=== PATIENT | female | born 1955 | race Caucasian/White ===

== ENCOUNTER 2016-09-09 08:04 | Emergency (ER) | payer SELFPAY ==
[2016-09-09 08:10] VITALS: BP 120/73
[2016-09-09] MEDS ORDERED: IPRATROPIUM/ALBUTEROL 0.5-2.5 MG/3 ML AMPUL NEB ONE (08:14)
[2016-09-09] MEDS ORDERED: GUAIFENESIN/D-METHORPHAN (200-20 MG) SYRUP 10 ML PO ONE (08:14)
--- NOTE | 2016-09-09 08:15 | ER Document Report ---
ED Respiratory Problem - General Chief Complaint: Congestion Stated Complaint: CONGESTION,COUGH Time Seen by Provider: 09/09/16 08:14 Mode of Arrival: Ambulatory Information source: Patient Notes: Pt is a 61 year old female with asthma who presents to the ER today for shortness of breath, cough, wheezing, fever and chills x 4 days. She states it began as sinus congestion and runny nose and has been worsening. She has not taken her temperature at home. She has not been able to find her albuterol inhaler at home. TRAVEL OUTSIDE OF THE U.S. IN LAST 30 DAYS: Yes COUNTRY TRAVELED TO/FROM: [place] and - Related Data Allergies/Adverse Reactions: codeine [Codeine] Allergy (Verified 09/09/16 08:08) egg [Egg] Allergy (Verified 09/09/16 08:08) milk [Milk] Allergy (Verified 09/09/16 08:08) Sulfa (Sulfonamide Antibiotics) Allergy (Verified 09/09/16 08:08) Past Medical History - General Information source: Patient - Social History Smoking Status: Former Smoker Family History: Reviewed & Not Pertinent Patient has suicidal ideation: No Patient has homicidal ideation: No - Past Medical History Cardiac Medical History: Reports: Hx Heart Attack - 2011, Hx Hypercholesterolemia, Hx Hypertension - taking Lisinopril but out for 6 weeks, seen at [facility] Medical History: Reports: Hx Asthma Endocrine Medical History: Reports: Hx Diabetes Mellitus Type 2 Renal/ Medical History: Denies: Hx Peritoneal Dialysis Past Surgical History: Reports: Hx Cholecystectomy - Immunizations Hx Diphtheria, Pertussis, Tetanus Vaccination: Yes Review of Systems - Review of Systems Constitutional: See HPI EENT: See HPI Cardiovascular: No symptoms reported Respiratory: See HPI Gastrointestinal: No symptoms reported Genitourinary: No symptoms reported Female Genitourinary: No symptoms reported Musculoskeletal: No symptoms reported Skin: No symptoms reported Hematologic/Lymphatic: No symptoms reported Neurological/Psychological: No symptoms reported Physical Exam - Vital signs Vitals: Temp Pulse Resp BP Pulse Ox 98 F 100 18 120/73 92 09/09/16 08:08 09/09/16 08:08 09/09/16 08:08 09/09/16 08:08 09/09/16 08:08 - Notes Notes: PHYSICAL EXAMINATION: GENERAL: Coughing, raspy voice, but in no acute distress. HEAD: Atraumatic, normocephalic. EYES: Pupils equal round and reactive to light, extraocular movements intact, sclera anicteric, conjunctiva are normal. ENT: ear canals without erythema or foreign body, TMs pearly schrader with good bony landmarks, nares with mucoid discharge t, oropharynx clear without exudates. Moist mucous membranes. NECK: Normal range of motion, supple without lymphadenopathy LUNGS: Coughing, mild expiratory wheezes and lower lung [place], no rales or rhonchi. HEART: Regular rate and rhythm without murmurs ABDOMEN: Soft, no tenderness. No guarding, no rebound BACK: no vertebral tenderness, normal ROM GI/: no CVA tenderness EXTREMITIES: Normal range of motion, no pitting edema. No cyanosis. NEUROLOGICAL: Cranial nerves grossly intact. Normal sensory/motor exams. PSYCH: Normal mood, normal affect. SKIN: Warm, Dry, normal turgor, no rashes or lesions noted Course - Re-evaluation Re-evalutation: 09/09/16 09:44 patient feels better after breathing treatment and cough medication. Patient pulse ox did improve above 93% on room air. She was sent home with an albuterol inhaler from the emergency department. Chest x-ray was normal today, patient afebrile with normal vital signs. 09/09/16 09:45 - Vital Signs Vital signs: Temp Pulse Resp BP Pulse Ox 98 F 100 12 120/73 92 09/09/16 08:08 09/09/16 08:08 09/09/16 08:20 09/09/16 08:08 09/09/16 08:08 Discharge - Discharge Clinical Impression: Bronchitis Sinusitis Qualifiers: Sinusitis location: unspecified location Chronicity: acute Recurrence: non- recurrent Qualified Code(s): J01.90 - Acute sinusitis, unspecified Condition: Stable Disposition: HOME, SELF-CARE Additional Instructions: Return immediately for any new or worsening symptoms. Follow up with primary care provider, call tomorrow to make followup appointment. Prescriptions: Albuterol Sulfate [Proair HFA Inhalation Aerosol 8.5 gm MDI] 2 puff IH Q4 PRN # 1 mdi PRN Reason: Albuterol Sulfate [Albuterol Sulfate 2.5mg/3 mL] 1 vial IH Q4 PRN #25 vial PRN Reason: Azithromycin [Zithromax 250 mg Tablet] 250 mg PO ASDIR PRN #6 tablet PRN Reason: D-Methorphan Hb/Prometh HCl [Promethazine-Dm Syrup] 5 ml PO Q8 PRN #120 ml PRN Reason: Forms: Return to Work
--- NOTE | 2016-09-09 08:43 | RADIOLOGY REPORT (SQ) ---
EXAM DESCRIPTION: CHEST PA/LAT COMPLETED DATE/TIME: 09/09/2016 8:34 am REASON FOR STUDY: chest congestion, cough, hypoxia COMPARISON: Two-view chest 01/10/2016 EXAM PARAMETERS: NUMBER OF VIEWS: two views TECHNIQUE: Digital Frontal and Lateral radiographic views of the chest acquired. RADIATION DOSE: NA LIMITATIONS: none FINDINGS: LUNGS AND PLEURA: No opacities, masses or pneumothorax. No pleural effusion. MEDIASTINUM AND HILAR STRUCTURES: No masses or contour abnormalities. HEART AND VASCULAR STRUCTURES: Heart normal size. No evidence for failure. BONES: No acute findings. HARDWARE: None in the chest. OTHER: No other significant finding. IMPRESSION: NO SIGNIFICANT RADIOGRAPHIC FINDING IN THE CHEST. TECHNICAL DOCUMENTATION: JOB ID: [id number] [employer]- All Rights Reserved
[2016-09-09] MEDS ORDERED: ALBUTEROL SULFATE HFA (90 MCG/PUFF) 8 GM MDI (1 MDI/ER DISP) IH PRN (09:20)
== END 2016-09-09 09:29 | disposition home or self-care (01) ==
LOC: ER 08:04
DX: J40 Bronchitis, not specified as acute or chronic (principal); J01.90 Acute sinusitis, unspecified; E78.00 Pure hypercholesterolemia, unspecified; I10 Essential (primary) hypertension; J45.909 Unspecified asthma, uncomplicated; E11.9 Type 2 diabetes mellitus without complications; Z90.49 Acquired absence of other specified parts of digestive tract; Z87.891 Personal history of nicotine dependence; Z88.6 Allergy status to analgesic agent; Z88.2 Allergy status to sulfonamides; Z91.012 Allergy to eggs; Z91.011 Allergy to milk products; I25.2 Old myocardial infarction
CPT/HCPCS: 94640; 99283; 71020; J3490; J7620

== ENCOUNTER 2017-03-10 10:20 | Emergency (ER) | payer SELFPAY ==
--- NOTE | 2017-03-10 11:00 | ER Document Report ---
ED Respiratory Problem - General Chief Complaint: Cough Stated Complaint: COUGH Time Seen by Provider: 03/10/17 10:54 Mode of Arrival: Ambulatory Information source: Patient Notes: Patient is a 61-year-old female who presents to the ER today for 5 days of cough , runny nose, sore throat. Patient states her cough is productive of thick yellow sputum. She states she is losing her voice. She admits to hot flashes and chills but does not know if she has had a fever or not. She denies history of asthma, shortness of breath or wheezing. TRAVEL OUTSIDE OF THE [place] IN LAST 30 DAYS: No COUNTRY TRAVELED TO/FROM: [place] and - Related Data Allergies/Adverse Reactions: codeine [Codeine] Allergy (Verified 03/10/17 10:24) egg [Egg] Allergy (Verified 03/10/17 10:24) milk [Milk] Allergy (Verified 03/10/17 10:24) Sulfa (Sulfonamide Antibiotics) Allergy (Verified 03/10/17 10:24) Past Medical History - General Information source: Patient - Social History Smoking Status: Never Smoker Chew tobacco use (# tins/day): No Frequency of alcohol use: None Drug Abuse: None Family History: Arthritis, CAD, Hyperlipidemia, Hypertension, Malignancy, Thyroid Disfunction Patient has suicidal ideation: No Patient has homicidal ideation: No - Past Medical History Cardiac Medical History: Reports: Hx Heart Attack - 2011, Hx Hypercholesterolemia, Hx Hypertension - taking Lisinopril but out for 6 weeks, seen at [facility] Medical History: Reports: Hx Asthma, Hx Bronchitis, Hx Pneumonia Endocrine Medical History: Reports: Hx Diabetes Mellitus Type 2 Renal/ Medical History: Denies: Hx Peritoneal Dialysis GI Medical History: Reports: Hx Irritable Bowel Musculoskeltal Medical History: Reports Hx Arthritis, Reports Hx Musculoskeletal Trauma Psychiatric Medical History: Reports: Hx Anxiety, Hx Depression Traumatic Medical History: Reports: Hx Fractures - Finger wrist of the left Past Surgical History: Reports: Hx Cholecystectomy, Hx Oral Surgery - [place] teeth - Immunizations Hx Diphtheria, Pertussis, Tetanus Vaccination: Yes Review of Systems - Review of Systems Constitutional: See HPI EENT: See HPI Cardiovascular: No symptoms reported Respiratory: See HPI Gastrointestinal: No symptoms reported Genitourinary: No symptoms reported Female Genitourinary: No symptoms reported Musculoskeletal: No symptoms reported Skin: No symptoms reported Hematologic/Lymphatic: No symptoms reported Neurological/Psychological: No symptoms reported Physical Exam - Vital signs Vitals: Temp Pulse Resp BP Pulse Ox 98.1 F 113 H 19 126/83 H 96 03/10/17 10:28 03/10/17 10:28 03/10/17 10:28 03/10/17 10:28 03/10/17 10:28 - Notes Notes: PHYSICAL EXAMINATION: GENERAL: Mildly ill-appearing, but in no acute distress. HEAD: Atraumatic, normocephalic. EYES: Pupils equal round and reactive to light, extraocular movements intact, sclera anicteric, conjunctiva are normal. ENT: ear canals without erythema or foreign body, TMs pearly schrader with good bony landmarks, nares with mucoid discharge, oropharynx clear without exudates. Moist mucous membranes. maxillary sinuses tender to palpation NECK: Normal range of motion, supple without lymphadenopathy LUNGS: cough, otherwiseCTAB and equal. No wheezes rales or rhonchi. HEART: Regular rate and rhythm without murmurs ABDOMEN: Soft, no tenderness. No guarding, no rebound BACK: no vertebral tenderness, normal ROM GI/: no CVA tenderness EXTREMITIES: Normal range of motion, no pitting edema. No cyanosis. NEUROLOGICAL: Cranial nerves grossly intact. Normal sensory/motor exams. PSYCH: Normal mood, normal affect. SKIN: Warm, Dry, normal turgor, no rashes or lesions noted Course - Re-evaluation Re-evalutation: 03/10/17 18:34 X-ray negative for any acute pathology. - Vital Signs Vital signs: Temp Pulse Resp BP Pulse Ox 98.3 F 100 20 138/77 H 97 03/10/17 12:59 03/10/17 12:59 03/10/17 12:59 03/10/17 12:59 03/10/17 12:59 Discharge - Discharge Clinical Impression: Bronchitis Sinusitis Qualifiers: Sinusitis location: other Chronicity: acute Recurrence: non-recurrent Qualified Code(s): J01.80 - Other acute sinusitis Condition: Stable Disposition: HOME, SELF-CARE Additional Instructions: Return immediately for any new or worsening symptoms. Follow up with primary care provider, call tomorrow to make followup appointment. Prescriptions: Hydrocodone Bit/Homatropine [Hycodan Syrup 5-1.5 mg/5 ml Ud Cup] 5 ml PO Q4HP PRN #120 ml PRN Reason: Azithromycin [Zithromax 250 mg Tablet] 250 mg PO ASDIR PRN #6 tablet PRN Reason:
--- NOTE | 2017-03-10 11:44 | RADIOLOGY REPORT (SQ) ---
EXAM DESCRIPTION: CHEST PA/LAT COMPLETED DATE/TIME: 03/10/2017 11:36 am REASON FOR STUDY: cough, sob COMPARISON: 09/09/2016 EXAM PARAMETERS: NUMBER OF VIEWS: two views TECHNIQUE: Digital Frontal and Lateral radiographic views of the chest acquired. RADIATION DOSE: NA LIMITATIONS: none FINDINGS: LUNGS AND PLEURA: No opacities, masses or pneumothorax. No pleural effusion. MEDIASTINUM AND HILAR STRUCTURES: No masses or contour abnormalities. HEART AND VASCULAR STRUCTURES: Heart normal size. No evidence for failure. BONES: No acute findings. HARDWARE: None in the chest. OTHER: No other significant finding. IMPRESSION: NO SIGNIFICANT RADIOGRAPHIC FINDING IN THE CHEST. TECHNICAL DOCUMENTATION: JOB ID: [id number] [employer]- All Rights Reserved
[2017-03-10 13:04] VITALS: BP 138/77
== END 2017-03-10 13:03 | disposition home or self-care (01) ==
LOC: ER 10:20
DX: J40 Bronchitis, not specified as acute or chronic (principal); J01.80 Other acute sinusitis; R05 Cough; J02.9 Acute pharyngitis, unspecified; R09.89 Other specified symptoms and signs involving the circulatory and respiratory systems; I25.2 Old myocardial infarction
CPT/HCPCS: 71020; 99283

== ENCOUNTER 2017-12-31 12:12 | Observation (INO) | payer SELFPAY ==
--- NOTE | 2017-12-31 12:38 | EKG REPORT ---
SEVERITY:- ABNORMAL ECG - SINUS RHYTHM ATRIAL PREMATURE COMPLEX NONSPECIFIC INTRAVENTRICULAR CONDUCTION DELAY : Confirmed by: Erin Zamora MD 31-Dec-2017 12:37:50
--- NOTE | 2017-12-31 12:55 | ER Document Report ---
ED Medical Screen (RME) - General Chief Complaint: Chest Pain Stated Complaint: CHEST PAIN Time Seen by Provider: 12/31/17 12:23 Notes: 8-year-old female to the emergency department chief complaint of chest pain on and off for the last 2 days. Having pressure and heaviness in the chest with some pain that shoots down her left arm. Nausea and vomiting this morning. Went to work but the boss said that she looked horrible she needed to go get checked out. States that she hates coming to the doctor. Does not have good health insurance so has not been taking her medications. Patient has diabetes and hypertension. Does not smoke, drink or do drugs. Has had a cardiac catheterization done approximately 6 years ago which was reportedly normal. I have greeted and performed a rapid initial assessment of this patient. A comprehensive ED assessment and evaluation of the patient, analysis of test results and completion of the medical decision making process will be conducted by additional ED providers. TRAVEL OUTSIDE OF THE [place].S. IN LAST 30 DAYS: No COUNTRY TRAVELED TO/FROM: [facility] and - Related Data Allergies/Adverse Reactions: codeine [Codeine] Allergy (Verified 12/31/17 12:15) egg [Egg] Allergy (Verified 12/31/17 12:15) milk [Milk] Allergy (Verified 12/31/17 12:15) Sulfa (Sulfonamide Antibiotics) Allergy (Verified 12/31/17 12:15) Past Medical History - Past Medical History Cardiac Medical History: Reports: Hx Heart Attack - 2011, Hx Hypercholesterolemia, Hx Hypertension - taking Lisinopril but out for 6 weeks, seen at [facility] Medical History: Reports: Hx Asthma, Hx Bronchitis, Hx Pneumonia Endocrine Medical History: Reports: Hx Diabetes Mellitus Type 2 Renal/ Medical History: Denies: Hx Peritoneal Dialysis GI Medical History: Reports: Hx Irritable Bowel Musculoskeltal Medical History: Reports Hx Arthritis, Reports Hx Musculoskeletal Trauma Psychiatric Medical History: Reports: Hx Anxiety, Hx Depression Traumatic Medical History: Reports: Hx Fractures - Finger wrist of the left Past Surgical History: Reports: Hx Cholecystectomy, Hx Oral Surgery - [place] teeth - Immunizations Hx Diphtheria, Pertussis, Tetanus Vaccination: Yes Review of Systems - Review of Systems Notes: Review of systems positive for the following: Chest pain, nausea, vomiting Physical Exam - Vital signs Vitals: Temp Pulse Resp BP Pulse Ox 97.4 F 86 16 184/94 H 98 09/22/18 12:31 12/31/17 12:31 12/31/17 12:31 12/31/17 12:31 12/31/17 12:31 Interpretation: Normal - Cardiovascular Rhythm: Regular Heart sounds: Normal auscultation Murmur: No Course - Vital Signs Vital signs: Temp Pulse Resp BP Pulse Ox 97.4 F 86 16 184/94 H 98 12/31/17 12:31 12/31/17 12:31 12/31/17 12:31 12/31/17 12:31 12/31/17 12:31 - EKG Interpretation by Mn EKG shows normal: Sinus rhythm, [place], Intervals, QRS Complexes, ST-T Waves
[2017-12-31] MEDS ORDERED: ASPIRIN 81 MG TABLET, CHEWABLE PO ONE (13:06)
[2017-12-31 13:20] LABS: ABSOLUTE BASOPHILS # (AUTO) 0.1 10^3/uL (0.0-0.2); ABSOLUTE EOSINOPHILS # (AUTO) 0.2 10^3/uL (0.0-0.6); ABSOLUTE LYMPHOCYTES (AUTO) 1.6 10^3/uL (0.5-4.7); ABSOLUTE MONOCYTES (AUTO) 0.4 10^3/uL (0.1-1.4); ABSOLUTE NEUT (AUTO) 3.8 10^3/uL (1.7-8.2); BASOPHILS % (AUTO) 1.1 % (0-2); EOSINOPHILS % (AUTO) 2.6 % (0-6); HEMATOCRIT 40.9 % (36.0-47.0); HEMOGLOBIN 13.8 g/dL (12.0-15.5); LYMPHOCYTES % (AUTO) 26.4 % (13-45); MEAN CORPUSCULAR HEMOGLOBIN 31.6 pg (27.0-33.4); MEAN CORPUSCULAR HGB CONC 33.8 g/dL (32.0-36.0); MEAN CORPUSCULAR VOLUME 94 fl (80-97); MONOCYTES % (AUTO) 6.8 % (3-13); PLATELET COUNT 219 10^3/uL (150-450); RED BLOOD COUNT 4.38 10^6/uL (3.72-5.28); RED CELL DISTRIBUTION WIDTH 12.5 % (11.5-14.0); SEGMENTED NEUTROPHILS % (AUTO) 63.1 % (42-78); TOTAL CELLS COUNTED % (AUTO) 100 %
[2017-12-31 13:46] LABS: ALANINE AMINOTRANSFERASE 41 U/L (9-52); ALBUMIN 4.4 g/dL (3.5-5.0); ALKALINE PHOSPHATASE 58 U/L (38-126); ANION GAP 12 (5-19); ASPARTATE AMINO TRANSFERASE 21 U/L (14-36); BILIRUBIN,DIRECT 0.5 mg/dL (0.0-0.4); BILIRUBIN,TOTAL 0.9 mg/dL (0.2-1.3); BLOOD UREA NITROGEN 17 mg/dL (7-20); CALCIUM 10.2 mg/dL (8.4-10.2); CARBON DIOXIDE 26 mmol/L (22-30); CHLORIDE 96 mmol/L (98-107); CREATINE KINASE 91 U/L (30-135); POTASSIUM 4.8 mmol/L (3.6-5.0); SODIUM 133.5 mmol/L (137-145); TOTAL PROTEIN 7.6 g/dL (6.3-8.2)
--- NOTE | 2017-12-31 13:50 | RADIOLOGY REPORT (SQ) ---
EXAM DESCRIPTION: CHEST SINGLE VIEW COMPLETED DATE/TIME: 12/31/2017 1:31 pm REASON FOR STUDY: chest pain COMPARISON: 03/10/2017. EXAM PARAMETERS: NUMBER OF VIEWS: One view. TECHNIQUE: Single frontal radiographic view of the chest acquired. RADIATION DOSE: NA LIMITATIONS: None. FINDINGS: LUNGS AND PLEURA: No opacities, masses or pneumothorax. No pleural effusion. MEDIASTINUM AND HILAR STRUCTURES: No masses. Contour normal. HEART AND VASCULAR STRUCTURES: Heart normal in size. Normal vasculature. BONES: No acute findings. HARDWARE: None in the chest. OTHER: No other significant finding. IMPRESSION: NO ACUTE RADIOGRAPHIC FINDING IN THE CHEST. TECHNICAL DOCUMENTATION: JOB ID: [id number] [employer]- All Rights Reserved Reading location - IP/workstation name: [email or web address]
[2017-12-31 13:54] LABS: GLUCOSE 593 mg/dL (75-110)
[2017-12-31 13:57] LABS: CREATINE KINASE MB 1.11 ng/mL (<4.55)
[2017-12-31 14:04] LABS: TROPONIN I < 0.012 ng/mL
[2017-12-31] MEDS ORDERED: INSULIN REG, HUMAN 100 UNIT/ML 3 ML VIAL (PYX) IV ONE (14:43)
[2017-12-31] MEDS ORDERED: ONDANSETRON HCL INJ/PF 4 MG/2 ML SDV IV ONE (14:46)
[2017-12-31] MEDS: NITROGLYCERIN 0.4 MG/TAB 25 TAB/BOTTLE SL PRN ×2 (14:55→19:57)
--- NOTE | 2017-12-31 15:45 | RADIOLOGY REPORT (SQ) ---
EXAM DESCRIPTION: CTA CHEST COMPLETED DATE/TIME: 12/31/2017 3:23 pm REASON FOR STUDY: chest pain chest pain COMPARISON: AP chest 05/31/2017 TECHNIQUE: CT scan of the chest performed using helical scanning technique with dynamic intravenous contrast injection. Images reviewed with lung, soft tissue and bone windows. Reconstructed coronal and sagittal MPR images reviewed. Additional 3 dimensional post-processing performed to develop Maximal Intensity Projection images (AK P). All images stored on PACS. All CT scanners at this facility use dose modulation, iterative reconstruction, and/or weight based d osing when appropriate to reduce radiation dose to as low as reasonably achievable (ALARA). [facility]: Dose Right [facility]: CareDose [facility]: Dose Right [facility]: Teradose 4D [facility]: Stackpop CONTRAST TYPE AND DOSE: contrast/concentration: Isovue 350.00 mg/ml; Total Contrast Delivered: 150.0 ml; Total Saline Delivered: 138.0 ml Contrast bolus optimized for the pulmonary arteries and thoracic aorta. RENAL FUNCTION: Creatinine 0.86 RADIATION DOSE: CT Rad equipment meets quality standard of care and radiation dose reduction techniq ues were employed. CTDIvol: 23.8 - 52.9 mGy. DLP: 848 mGy-cm. . LIMITATIONS: None. FINDINGS: LUNGS AND PLEURA: No masses, infiltrates, or pneumothorax. No pleural effusions or pleura l calcifications. AORTA AND GREAT VESSELS: No aneurysm. No thoracic aortic dissection. HEART: No pericardial effusion. No significant coronary artery calcifications. PULMONARY ARTERIES: No emboli visualized in the main pulmonary arteries or the segmental branches. HILAR AND MEDIASTINAL STRUCTURES: Tiny hiatal hernia. Mild esophageal wall thickening, question refl ux esophagitis HARDWARE: None in the chest. UPPER ABDOMEN: Post cholecystectomy THYROID AND OTHER SOFT TISSUES: No masses. No adenopathy. BONES: No acute or significant finding. 3D MIPS: Confirm above findings. OTHER: No other significant finding. IMPRESSION: NORMAL CTA OF THE CHEST. NO PULMONARY EMBOLI. COMMENT: Quality ID # [id number]: Final reports with documentation of one or more dose reduction techniques (e.g., Automated exposure control, adjustment of the mA and/or kV according to patient size, use of iterative reconstruction technique) TECHNICAL DOCUMENTATION: JOB ID: [id number] [employer]- All Rights Reserved Reading location - IP/workstation name: [email or web address]
--- NOTE | 2017-12-31 17:10 | ER Document Report ---
ED General - General Chief Complaint: Chest Pain Stated Complaint: CHEST PAIN Time Seen by Provider: 12/31/17 12:23 Mode of Arrival: Ambulatory Information source: Patient Notes: This is a 62-year-old female with a history of hypertension and diabetes who presents to the emergency room with intermittent chest pain on and off since last night. TRAVEL OUTSIDE OF THE [place] IN LAST 30 DAYS: No COUNTRY TRAVELED TO/FROM: [facility] and - [facility] Onset: Yesterday Onset/Duration: Gradual Quality of pain: Dull Severity: Moderate Pain Level: 2 Associated symptoms: Chest pain. denies: Shortness of breath Exacerbated by: Denies Relieved by: Denies Similar symptoms previously: No Recently seen / treated by doctor: No - Related Data Allergies/Adverse Reactions: codeine [Codeine] Allergy (Verified 12/31/17 12:15) egg [Egg] Allergy (Verified 12/31/17 12:15) milk [Milk] Allergy (Verified 12/31/17 12:15) Sulfa (Sulfonamide Antibiotics) Allergy (Verified 12/31/17 12:15) Past Medical History - General Information source: Patient - Social History Smoking Status: Former Smoker Cigarette use (# per day): No Chew tobacco use (# tins/day): No Frequency of alcohol use: None Drug Abuse: None Lives with: Family Family History: Arthritis, CAD, Hyperlipidemia, Hypertension, Malignancy, Thyroid Disfunction Patient has suicidal ideation: No Patient has homicidal ideation: No - Past Medical History Cardiac Medical History: Reports: Hx Heart Attack - 2011, Hx Hypercholesterolemia, Hx Hypertension - taking Lisinopril but out for 6 weeks, seen at [facility] Medical History: Reports: Hx Asthma, Hx Bronchitis, Hx Pneumonia Endocrine Medical History: Reports: Hx Diabetes Mellitus Type 2 Renal/ Medical History: Denies: Hx Peritoneal Dialysis GI Medical History: Reports: Hx Irritable Bowel Musculoskeletal Medical History: Reports Hx Arthritis, Reports Hx Musculoskeletal Trauma Psychiatric Medical History: Reports: Hx Anxiety, Hx Depression Traumatic Medical History: Reports: Hx Fractures - Finger wrist of the left Past Surgical History: Reports: Hx Cholecystectomy, Hx Oral Surgery - [place] teeth - Immunizations Hx Diphtheria, Pertussis, Tetanus Vaccination: Yes Review of Systems - Review of Systems Constitutional: denies: Chills, Fever EENT: No symptoms reported Cardiovascular: See HPI Respiratory: No symptoms reported Gastrointestinal: No symptoms reported Genitourinary: No symptoms reported Female Genitourinary: No symptoms reported Musculoskeletal: No symptoms reported Skin: No symptoms reported Hematologic/Lymphatic: No symptoms reported Neurological/Psychological: No symptoms reported Physical Exam - Vital signs Vitals: Temp Pulse Resp BP Pulse Ox 97.4 F 86 16 184/94 H 98 12/31/17 12:31 12/31/17 12:31 12/31/17 12:31 12/31/17 12:31 12/31/17 12:31 Notes: Physical exam: GENERAL: 62-year-old female, alert and oriented 3, no acute distress HEAD: Atraumatic, normocephalic. EYES: Pupils equal round and reactive to light, extraocular movements intact, sclera anicteric, conjunctiva are normal. ENT: TMs normal, nares patent, oropharynx clear without exudates. Moist mucous membranes. NECK: Normal range of motion, supple without obvious mass or JVD. LUNGS: Breath sounds clear to auscultation bilaterally and equal. No wheezes rales or rhonchi. HEART: Regular rate and rhythm without murmurs, rubs or gallops. ABDOMEN: Soft, normoactive bowel sounds. No tenderness to palpation. No guarding, no rebound. No masses appreciated. EXTREMITIES: Normal range of motion, no pitting or edema. No clubbing or cyanosis. NEUROLOGICAL: Cranial nerves II through XII grossly intact. Normal speech, moving all extremities. PSYCH: Normal mood, normal affect. SKIN: Warm, Dry, normal turgor, no rashes or lesions noted. Course - Vital Signs Vital signs: Temp Pulse Resp BP Pulse Ox 98.0 F 66 18 142/89 H 100 12/31/17 23:34 12/31/17 23:34 12/31/17 23:34 12/31/17 23:34 12/31/17 23:34 - Laboratory Result Diagrams: 12/31/17 13:12 12/31/17 13:12 Laboratory results interpreted by me: 12/31/17 12/31/17 13:12 16:25 Sodium 133.5 L Chloride 96 L Glucose 593 H* POC Glucose 360 H Direct Bilirubin 0.5 H - Diagnostic Test Radiology reviewed: Image reviewed, Reports reviewed - Chest x-ray shows no infiltrates. CTA shows no pulmonary emboli - EKG Interpretation by Me Rate: Normal Rhythm: NSR - Normal sinus rhythm with a ventricular rate of 85, no acute ST-T wave changes Discharge - Discharge Clinical Impression: Chest pain, Uncontrolled diabetes Condition: Stable Disposition: ADMITTED OBSERVATION Admitting Provider: Hospitalist Claus Farfan Unit Admitted: Telemetry
[2017-12-31] MEDS ORDERED: DEXTROSE 50%-WATER 25 GM/50 ML DISP.SYRIN IV PRN ×2 (18:23)
[2017-12-31] MEDS ORDERED: DEXTROSE 40% GEL 15 GM TUBE PO PRN ×2 (18:23)
[2017-12-31] MEDS ORDERED: FLUCONAZOLE 100 MG TABLET PO ONE (18:45)
[2017-12-31] MEDS: NYSTATIN CREAM 15 GM TP SCH (18:47)
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
[2017-12-31 19:51] LABS: CREATINE KINASE MB 0.71 ng/mL (<4.55)
[2017-12-31 19:59] LABS: TROPONIN I < 0.012 ng/mL
[2017-12-31] MEDS: METOPROLOL TARTRATE 25 MG TABLET PO SCH (22:13)
[2017-12-31] MEDS: INSULIN LISPRO 100 UNIT/ML 3 ML VIAL SUBCUT PRN (22:23)
[2018-01-01 01:25] LABS: CREATINE KINASE MB 0.51 ng/mL (<4.55)
[2018-01-01 01:29] LABS: TROPONIN I < 0.012 ng/mL
[2018-01-01] MEDS: INSULIN LISPRO 100 UNIT/ML 3 ML VIAL SUBCUT PRN ×4 (07:08→21:51)
[2018-01-01 07:57] LABS: ANION GAP 7 (5-19); BLOOD UREA NITROGEN 15 mg/dL (7-20); CALCIUM 9.8 mg/dL (8.4-10.2); CARBON DIOXIDE 27 mmol/L (22-30); CHLORIDE 102 mmol/L (98-107); CHOLESTEROL 189.16 mg/dL (0-200); CREATINE KINASE 37 U/L (30-135); GLUCOSE 300 mg/dL (75-110); POTASSIUM 4.4 mmol/L (3.6-5.0); SODIUM 135.6 mmol/L (137-145); TRIGLYCERIDES 216 mg/dL (<150)
[2018-01-01 08:08] LABS: DIRECT LDL 98 mg/dL (<100)
[2018-01-01 08:09] LABS: VLDL CHOLESTEROL 43.2 mg/dL (10-31)
[2018-01-01 08:20] LABS: CREATINE KINASE MB 0.28 ng/mL (<4.55)
[2018-01-01 08:21] LABS: TROPONIN I < 0.012 ng/mL
[2018-01-01] MEDS: METOPROLOL TARTRATE 25 MG TABLET PO SCH ×2 (09:21→21:40)
[2018-01-01] MEDS: ASPIRIN 81 MG TABLET, ENT COATED PO SCH (09:21)
[2018-01-01] MEDS: NYSTATIN CREAM 15 GM TP SCH ×2 (09:22→17:43)
[2018-01-01] MEDS: METFORMIN HCL 500 MG TABLET PO SCH ×2 (09:24→17:32)
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
[2018-01-01] MEDS ORDERED: HYDROCORTISONE ACETATE 25 MG SUPP.RECT PR PRN (17:27)
[2018-01-01] MEDS ORDERED: DEXTROSE 40% GEL 15 GM TUBE PO PRN ×2 (17:28)
[2018-01-01] MEDS ORDERED: DEXTROSE 50%-WATER 25 GM/50 ML DISP.SYRIN IV PRN ×2 (17:28)
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
--- NOTE | 2018-01-01 19:37 | PDOC PROGRESS REPORT ---
Subjective Progress Note for:: 01/01/18 Subjective:: Patient seems to be doing better with gradual improvement. Patient however still having some intermittent chest tightness. Patient denying any PND, orthopnea. Patient denied any sustained palpitations, dizziness, syncope, near syncope. Patient denying any fever chills. Patient denying any other significant discomfort. Patient is maintaining sinus rhythm. Review of systems: Rest review of systems negative. Medications: Medications have been reviewed. Reason For Visit: CHEST PAIN,ELEVATED BLOOD SUGAR,CAD,TYPE 2 DIABETE Physical Exam Vital Signs: Temp Pulse Resp BP Pulse Ox 98.1 F 64 16 128/63 H 98 01/01/18 12:00 01/01/18 14:00 01/01/18 12:00 01/01/18 12:00 01/01/18 12:00 Intake & Output 12/31/17 01/01/18 01/02/18 06:59 06:59 06:59 Intake Total 240 Balance 240 Weight 94.5 kg Exam: GENERAL: well-nourished and in no acute distress. Alert and oriented x3 HEAD: Atraumatic, normocephalic. EYES: Pupils equal round and reactive to light, extraocular movements intact, sclera anicteric, conjunctiva are normal. ENT: TMs normal, nares patent, oropharynx clear without exudates. Moist mucous membranes. No oral ulcerations or bleeding gums noted NECK: supple without lymphadenopathy. Trachea is central. No cervical or axillary lymphadenopathy noted. Carotids are 2+, JVD WNL LUNGS: Respiration seems nonlabored, no significant accessory muscle action noted. Breath sounds clear to auscultation bilaterally and equal noted. No wheezes rales or rhonchi noted. No significant dullness noted on percussion. CHEST: Palpation of the chest wall shows no significant chest wall tenderness. 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 ABDOMEN: Soft, no significant tenderness appreciated, normoactive bowel sounds. No guarding, no rebound. No rigidity noted . No masses appreciated. EXTREMITIES: Pedal pulses are 1-2+, no calf tenderness noted. No clubbing or cyanosis. negative pedal edema noted NEUROLOGICAL: Focused neurological exam showed no significant neurologic deficit. Normal speech, no focal weakness appreciated. PSYCH: Normal mood, normal affect. Judgment and insight within normal limits. SKIN: No significant ecchymosis, skin is noted to be warm. MUSCULOSKELETAL EXAM: No significant acute joint swelling noted. Results Laboratory Results: 01/01/18 06:39 01/01/18 06:39 Sodium 135.6 L Potassium 4.4 Chloride 102 Carbon Dioxide 27 Anion Gap 7 BUN 15 Creatinine 0.82 Est GFR ( Amer) > 60 Est GFR (Non-Af Amer) > 60 Glucose 300 H Calcium 9.8 Triglycerides 216 H Cholesterol 189.16 LDL Cholesterol Direct 98 VLDL Cholesterol 43.2 H HDL Cholesterol 43 12/31/17 12/31/17 01/01/18 18:52 18:52 00:19 Creatine Kinase 59 70 CK-MB (CK-2) 0.71 Troponin I < 0.012 01/01/18 01/01/18 01/01/18 00:19 06:39 06:39 Creatine Kinase 37 CK-MB (CK-2) 0.51 0.28 Troponin I < 0.012 < 0.012 EKG Comments: Telemetry shows sinus rhythm without any sustained tachycardia or bradycardia. Impressions: Chest X-Ray 12/31/17 13:07 IMPRESSION: NO ACUTE RADIOGRAPHIC FINDING IN THE CHEST. Chest/Abdomen CTA 12/31/17 14:47 IMPRESSION: NORMAL CTA OF THE CHEST. NO PULMONARY EMBOLI. Assessment & Plan - Diagnosis (1) Chest pain Qualifiers: Chest pain type: unspecified Qualified Code(s): R07.9 - Chest pain, unspecified Is this a current diagnosis for this admission?: Yes (2) Coronary artery disease Qualifiers: Coronary Disease-Associated Artery/Lesion type: [place] artery [place] vs. transplanted heart: [place] heart Associated angina: angina presence unspecified Qualified Code(s): I25.10 - Atherosclerotic heart disease of [place] coronary artery without angina pectoris Is this a current diagnosis for this admission?: Yes (3) Uncontrolled type 2 diabetes mellitus Qualifiers: Glycemic state: with hyperglycemia Qualified Code(s): E11.65 - Type 2 diabetes mellitus with hyperglycemia Is this a current diagnosis for this admission?: Yes - Notes Notes: Chest pain: Still having intermittent chest pains. Patient has history of prior myocardial infarction. Her EKGs and cardiac enzymes have been unremarkable. Have advised patient to undergo ischemia evaluation with his stress testing. This will therefore be scheduled. Will also schedule patient for a 2D echocardiogram. Coronary artery disease: We will try obtain records from [facility] about previous heart catheterization. Recommend statin therapy and beta- franky therapy as well as MARYURI inhibitor therapy. Uncontrolled diabetes: This is being expertly managed by the hospitalist. - Time Time with patient: Greater than 35 minutes - CODE STATUS was discussed, patient remains full code. Surrogate decision-maker patient's friend. Multiple medical problems were addressed. More than 50% of the time spent coordinating care, discussing management plans with involved caregivers. Management plans discussed with involved personnels. Medical decision making was of moderate to high complexity, patient's has multiple comorbidities. Medications reviewed and adjusted accordingly: Yes
[2018-01-01] MEDS ORDERED: INSULIN GLARGINE,HUM.REC.ANLOG 1,000 UNIT/10 ML UNIT SUBCUT ONE (21:45)
[2018-01-01] MEDS: LISINOPRIL 5 MG TABLET PO SCH (21:50)
[2018-01-01] MEDS: ATORVASTATIN CALCIUM 40 MG TABLET PO SCH (21:51)
[2018-01-01] MEDS ORDERED: ATORVASTATIN CALCIUM 40 MG TABLET PO SCH (22:00)
[2018-01-01] MEDS ORDERED: INSULIN GLARGINE,HUM.REC.ANLOG 300 UNIT/3 ML INSULN.PEN SUBCUT SCH (22:00)
[2018-01-02 06:45] LABS: ANION GAP 7 (5-19); BLOOD UREA NITROGEN 20 mg/dL (7-20); CALCIUM 9.7 mg/dL (8.4-10.2); CARBON DIOXIDE 28 mmol/L (22-30); CHLORIDE 100 mmol/L (98-107); GLUCOSE 287 mg/dL (75-110); POTASSIUM 4.4 mmol/L (3.6-5.0); SODIUM 135.1 mmol/L (137-145)
[2018-01-02] MEDS: INSULIN LISPRO 100 UNIT/ML 3 ML VIAL SUBCUT SCH ×5 (08:06→18:15)
[2018-01-02] MEDS: INSULIN LISPRO 100 UNIT/ML 3 ML VIAL SUBCUT PRN ×3 (08:07→16:44)
[2018-01-02] MEDS: METOPROLOL TARTRATE 25 MG TABLET PO SCH ×2 (09:15→22:35)
[2018-01-02] MEDS: ASPIRIN 81 MG TABLET, ENT COATED PO SCH (09:16)
[2018-01-02] MEDS: LISINOPRIL 5 MG TABLET PO SCH (09:16)
[2018-01-02] MEDS: NYSTATIN CREAM 15 GM TP SCH ×2 (09:18→18:15)
[2018-01-02] MEDS: LISINOPRIL 10 MG TABLET PO SCH (12:11)
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
[2018-01-02] MEDS: ENOXAPARIN SODIUM INJ 40 MG/0.4 ML DISP.SYRIN SUBCUT SCH (19:08)
[2018-01-02 19:19] LABS: CREATINE KINASE MB < 0.22 ng/mL (<4.55); TROPONIN I < 0.012 ng/mL
[2018-01-02] MEDS ORDERED: INSULIN GLARGINE,HUM.REC.ANLOG 300 UNIT/3 ML INSULN.PEN SUBCUT SCH (22:00)
[2018-01-02] MEDS: ATORVASTATIN CALCIUM 40 MG TABLET PO SCH (22:29)
--- NOTE | 2018-01-02 22:37 | Progress Note ---
Provider Note Provider Note: Cardiology PROGRESS NOTE by Dr. Erin Zamora on 01/02/2018. SUBJECTIVE: The patient has no chest pain or discomfort, there is no PND orthopnea. There is no leg edema. There is no palpitations, or near syncope or syncope. There is no TIA or CVA symptoms. Patient awaiting scheduling of stress test, most likely this will be tomorrow. 01/02/18 08:10 Temperature 97.6 F Temperature Oral Source Pulse Rate 81 Respiratory 12 Rate Blood Pressure 136/85 H Blood Pressure 102 Mean BP Location Right Arm BP Position Sitting O2 Sat by Pulse 100 Oximetry Oxygen Delivery Room Air Method PHYSICAL EXAMINATION: The patient is mild to moderately obese, but in no acute distress, she is well groomed. HEAD: Is atraumatic and normocephalic. EYES: Pupils are equal round regular reactive to light accommodation. ENT: Negative. NECK: Is supple. There is no JVD. Carotids are equal there is no bruit. There is no goiter. There is no lymphadenopathy. There is no accessory muscles of respiration use. LUNGS: Clear to auscultation percussion, without any rhonchi rales or wheezing. There is no chest wall tenderness. HEART: S1- S2 is heard S1 and S2 of normal intensity. There is no S3 gallop there is no S4 gallop there is a systolic murmur in the left sternal border and the apex without radiation. There is no rub. ABDOMEN: Is mildly obese, nontender. There is no hepatosplenomegaly. Bowel sounds well heard. There is no tender areas of masses. EXTREMITIES: Femorals well felt. There is no femoral bruits. Leg pulses are well felt. There is no pedal edema. There is no DVT or cellulitis. There is no calf tenderness. There is no cyanosis or clubbing. 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 PSYCHIATRIC: The patient judgment and insight are intact.. Her affect is normal. IMPRESSION: 1. Chest pain, no evidence of SC. Patient with multiple CAD risk factors, awaiting scheduling of stress test, which will be done tomorrow in the form of IV Lexiscan Cardiolite stress test.. 2. History of prior mild Myocardial infarction 2011, with evidence of normal coronaries at that time with Dr. Cadena cardiomyopathy, with a LV ejection fraction of 30%. At present LV ejection fraction is normal, with no wall motion abnormality. Stress test does not show any evidence of myocardial infarction, but does show ischemia in the apical lateral wall. [Records provided and reviewed with per patient's permission.]. 3. Hypertension: Well controlled. 4. Diabetes mellitus: Blood sugar still not very well controlled. Would maximize antidiabetic treatment. 6. Dyslipidemia. 01/02/18 01/02/18 01/02/18 05:39 18:38 18:38 Sodium 135.1 L Potassium 4.4 Chloride 100 Carbon Dioxide 28 BUN 20 Creatinine 0.86 Est GFR (Non-Af Amer) > 60 Glucose 287 H Calcium 9.7 Creatine Kinase 22 L CK-MB (CK-2) < 0.22 Troponin I < 0.012 RECOMMENDATION: Continue beta-franky, and increase as tolerated. Continue aspirin, atorvastatin, and lisinopril. Also continue sublingual nitroglycerin as needed chest pain. The patient will be scheduled for the stress test tomorrow. Discussed with the attending physician. Note 30 minutes spent on this patient more than 50% of time spent in direct patient care. Her medications have been reviewed. Medical decision making is of moderate complexity.. We will follow with you.
[2018-01-03 01:42] LABS: CREATINE KINASE MB 0.25 ng/mL (<4.55); TROPONIN I < 0.012 ng/mL
[2018-01-03 07:53] LABS: CREATINE KINASE MB < 0.22 ng/mL (<4.55); TROPONIN I < 0.012 ng/mL
[2018-01-03] MEDS: INSULIN LISPRO 100 UNIT/ML 3 ML VIAL SUBCUT SCH ×3 (08:21→16:06)
[2018-01-03] MEDS: INSULIN LISPRO 100 UNIT/ML 3 ML VIAL SUBCUT PRN ×2 (08:22→12:00)
[2018-01-03] MEDS ORDERED: LISINOPRIL 10 MG TABLET PO SCH (10:00)
[2018-01-03] MEDS ORDERED: REGADENOSON INJ 0.4 MG/5 ML DISP.SYRIN IV ONE (10:59)
[2018-01-03] MEDS: NYSTATIN CREAM 15 GM TP SCH (11:57)
[2018-01-03] MEDS: ENOXAPARIN SODIUM INJ 40 MG/0.4 ML DISP.SYRIN SUBCUT SCH (11:59)
[2018-01-03] MEDS: LISINOPRIL 10 MG TABLET PO SCH (12:00)
[2018-01-03] MEDS: METOPROLOL TARTRATE 25 MG TABLET PO SCH (12:01)
[2018-01-03] MEDS: ASPIRIN 81 MG TABLET, ENT COATED PO SCH (13:55)
--- NOTE | 2018-01-03 15:08 | XCELERA REPORT ---
[address] [address] Transthoracic Echocardiogram Report Name: RUTHIE CARDENAS Age: 62 yrs Gender: Female : 1955 Patient Status: Inpatient Patient Location: [address] [place] [address] Study Date: 01/03/2018 11:09 AM Procedure: A two-dimensional transthoracic echocardiogram with color flow and Doppler was performed. The study was technically difficult with many images being suboptimal in quality. Study Quality: Technically suboptimal. Reason For Study: Chest pain History: Chest pain. Ordering Physician: RANDY JERRY Performed By: Eugenie Roger Interpretation Summary The left ventricle is normal in size. There is normal left ventricular wall thickness. LV EF is 65% Left ventricular systolic function is normal. Doppler measurements suggest impaired left ventricular relaxation, which is associated with grade I/IV or mild diastolic dysfunction The left ventricular wall motion is normal. There is no thrombus. The right ventricle is not well visualized secondary to technical limitations The left atrial size is normal. The interatrial septum is intact with no evidence for an atrial septal defect. There is no evidence of mitral valve prolapse. There is no vegetation seen on the mitral valve. There is no mitral valve stenosis. There is no mitral regurgitation noted. There is no aortic valve stenosis There is no LVOT obstruction. No aortic regurgitation is present. There is no tricuspid stenosis. No tricuspid regurgitation. Unable to calculate RVSP due lack of TR jet. There is no pulmonic valvular stenosis. There is no pulmonic valvular regurgitation. The aortic root is not well visualized but is probably normal size. There is no pericardial effusion. MMode/2D Measurements & Calculations RVDd: 2.9 cm LVIDd: 4.9 cm FS: 37.4 % Ao root diam: 3.3 cm IVSd: 0.89 cm LVIDs: 3.1 cm EDV(Teich): 111.6 ml Ao root area: 8.6 cm2 LVPWd: 1.0 cm ESV(Teich): 36.5 ml EF(Teich): 67.3 % Doppler Measurements & Calculations MV E max rickey: MV dec slope: Ao V2 max: LV V1 max P.5 cm/sec 125.9 cm/sec 4.9 mmHg MV A max rickey: 297.4 cm/sec2 Ao max PG: LV V1 max: 76.6 cm/sec MV dec time: 0.20 sec 6.3 mmHg 111.2 cm/sec MV E/A: 0.76 PA V2 max: 94.5 cm/sec PA max P.6 mmHg Left Ventricle The left ventricle is normal in size. There is normal left ventricular wall thickness. LV EF is 65%. Left ventricular systolic function is normal. Doppler measurements suggest impaired left ventricular relaxation, which is associated with grade I/IV or mild diastolic dysfunction. The left ventricular wall motion is normal. There is no thrombus. Right Ventricle The right ventricle is not well visualized secondary to technical limitations. Atria The right atrium is normal. The left atrial size is normal. The interatrial septum is intact with no evidence for an atrial septal defect. Mitral Valve There is no evidence of mitral valve prolapse. There is no vegetation seen on the mitral valve. There is no mitral valve stenosis. There is no mitral regurgitation noted. Aortic Valve There is no aortic valve stenosis. There is no LVOT obstruction. No aortic regurgitation is present. Tricuspid Valve There is no tricuspid stenosis. No tricuspid regurgitation. Unable to calculate RVSP due lack of TR jet. Pulmonic Valve There is no pulmonic valvular stenosis. There is no pulmonic valvular regurgitation. Great Vessels The aortic root is not well visualized but is probably normal size. Effusions There is no pericardial effusion. : RANDY JERRY > Erin Zamora
--- NOTE | 2018-01-03 15:19 | DRAGON STRESS TEST REPORT ---
Intravenous Lexiscan Cardiolite stress test using single photon emmision computerized tomography. Date of procedure: 01/03/2018. Ordering Provider: Dr. De La Garza. Patient's status : In Patient. Indication: Chest pain. Coronary risk factors: Age, hypertension, diabetes mellitus, dyslipidemia, and family history of coronary artery disease. Resting EKG: Sinus Rhythm. Nonspecific T changes in leads I and aVL. Stress EKG: No changes of ischemia. The patient had no chest pain or discomfort, and there were no arrhythmias seen. Reason for termination: Protocol. Conclusions: Normal EKG and hemodynamic response to IV Lexiscan. Nuclear data: At rest the patient was given 15.18 millicuries of technetium 99m sestamibi injected intravenously. As per protocol rest non gated SPECT images were obtained. Subsequently the patient was given intravenous Lexiscan at a dose of 0.4 mg in 5 mL intravenously, followed by flush with normal saline. Subsequently the stress dose of 42.1 millicuries of technetium 99m sestamibi was injected intravenously. As per protocol stress gated images were obtained. Nuclear interpretation: Review of images showed that there was a perfusion defect involving the apical lateral wall of moderate severity in the stress images, which normalizes in the rest images. This area has normal motion contraction and thickening by gated study.. The rest of the segments of the myocardium had normal perfusion at rest , and normal perfusion post stress with IV Lexiscan. All segments of the myocardium had normal motion, contraction, and thickening by gated study. T. I D. ratio was normal at 1.04. Computer read rest, and stress left ventricular ejection fraction were 55 %, and 60 %, respectively. Conclusion: 1. There is scintigraphic evidence of Lexiscan induced myocardial ischemia of moderate severity involving the apical lateral wall. 2. There is no scintigraphic evidence of myocardial infarction/scar. Recommendations: 1. Cardiac catheterization to assess coronary anatomy, and for vascularization options if suitable lesions found. 2.Aggressive risk factor modification, and treating the underlying co- morbidities. This has been discussed with the patient, and the attending physician on the case Dr. Farfan. ANALI
--- NOTE | 2018-01-03 15:37 | Progress Note ---
Provider Note Provider Note: CARDIOLOGY PROGRESS NOTE by Dr. Erin Zamora on 01/03/2018. SUBJECTIVE: The patient has no chest pain or discomfort there is no palpitations. There is no PND orthopnea or leg edema. There is no arrhythmias seen on the monitor. The patient has no leg edema. There is no TIA or CVA symptoms. Her blood sugar is still not very well controlled. The patient underwent a stress test and also had an echo the findings of which are given below. PHYSICAL EXAMINATION: The patient is mild to moderately obese, but in no acute distress, she is well groomed. Selected Entries 01/03/18 01/03/18 08:12 11:46 Temperature 97.7 F 98.3 F Temperature Oral Axillary Source Pulse Rate 58 L 71 Respiratory 16 17 Rate Blood Pressure 128/67 H 175/67 H Blood Pressure 87 Mean BP Location Right Arm BP Position Supine O2 Sat by Pulse 95 Oximetry Oxygen Delivery Room Air Method HEAD: Is atraumatic and normocephalic. EYES: Pupils are equal round regular reactive to light accommodation. ENT: Negative. NECK: Is supple. There is no JVD. Carotids are equal there is no bruit. There is no goiter. There is no lymphadenopathy. There is no accessory muscles of respiration use. LUNGS: Clear to auscultation percussion, without any rhonchi rales or wheezing. There is no chest wall tenderness. HEART: S1- S2 is heard S1 and S2 of normal intensity. There is no S3 gallop there is no S4 gallop there is a systolic murmur in the left sternal border and the apex without radiation. There is no rub. ABDOMEN: Is mildly obese, nontender. There is no hepatosplenomegaly. Bowel sounds well heard. There is no tender areas of masses. EXTREMITIES: Femorals well felt. There is no femoral bruits. Leg pulses are well felt. There is no pedal edema. There is no DVT or cellulitis. There is no calf tenderness. There is no cyanosis or clubbing. 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 PSYCHIATRIC: The patient judgment and insight are intact.. Her affect is normal. IV Lexiscan Cardiolite stress test nuclear interpretation: Review of images showed that there was a perfusion defect involving the apical lateral wall of moderate severity in the stress images, which normalizes in the rest images. This area has normal motion contraction and thickening by gated study.. The rest of the segments of the myocardium had normal perfusion at rest , and normal perfusion post stress with IV Lexiscan. All segments of the myocardium had normal motion, contraction, and thickening by gated study. T. I D. ratio was normal at 1.04. Computer read rest, and stress left ventricular ejection fraction were 55 %, and 60 %, respectively. Conclusion: 1. There is scintigraphic evidence of Lexiscan induced myocardial ischemia of moderate severity involving the apical lateral wall. 2. There is no scintigraphic evidence of myocardial infarction/scar. ECHO REPORT: The left ventricle is normal in size. There is normal left ventricular wall thickness. LV EF is 65% Left ventricular systolic function is normal. Doppler measurements suggest impaired left ventricular relaxation, which is associated with grade I/IV or mild diastolic dysfunction The left ventricular wall motion is normal. There is no thrombus. The right ventricle is not well visualized secondary to technical limitations The left atrial size is normal. The interatrial septum is intact with no evidence for an atrial septal defect. There is no evidence of mitral valve prolapse. There is no vegetation seen on the mitral valve. There is no mitral valve stenosis. There is no mitral regurgitation noted. There is no aortic valve stenosis There is no LVOT obstruction. No aortic regurgitation is present. There is no tricuspid stenosis. No tricuspid regurgitation. Unable to calculate RVSP due lack of TR jet. There is no pulmonic valvular stenosis. There is no pulmonic valvular regurgitation. There is no pericardial effusion. 01/03/18 11:51 POC Glucose 288 H IMPRESSION: 1. Abnormal stress test, in a patient with multiple CAD risk factors. Continue medical treatment, and strongly recommend cardiac catheterization as soon as possible. 2. History of prior mild Myocardial infarction 2011, with evidence of normal coronaries at that time with Dr. Cadena cardiomyopathy, with a LV ejection fraction of 30%. At present LV ejection fraction is normal, with no wall motion abnormality. Stress test does not show any evidence of myocardial infarction, but does show ischemia in the apical lateral wall. 3. Hypertension: Well controlled. 4. Diabetes mellitus: Blood sugar still not very well controlled. Would maximize antidiabetic treatment. 6. Dyslipidemia. Recommendation: Continue Beta-Kathia, Sublingual Nitroglycerin As Needed, Enteric-Coated Aspirin, and Statin. Continue MARYURI INHIBITOR. The stress test and echo findings have been discussed with the patient in detail. [facility]. Risk Benefits and Alternative Therapeutic Options Have Been Discussed with the Patient the Patient Is Aware of Cardiac Catheterization since She Has Had One 6 Years Ago. The Risk of and Complication of Cardiac Catheterization and Conscious Sedation Has Been Discussed with the Patient. Discussed with the [facility] Grey Tender at [facility], who has accepted the patient in transfer. Discussed with attending physician Dr. Farfan. Will sign off the case. Note her medications have been reviewed. 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 Medical decision making is now of high complexity, in view of the. Patient needing cardiac catheterization, in light of the abnormal stress test.
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
[2018-01-03 16:17] VITALS: BP 161/72
== END 2018-01-03 16:40 | disposition short-term general hospital (02) ==
LOC: ER 12:12 → EH 17:27 → 4S 20:18
PROVIDERS: ADMIT Internal Medicine; ATTEND Internal Medicine
DX: R07.89 Other chest pain (principal); E11.65 Type 2 diabetes mellitus with hyperglycemia; I25.10 Atherosclerotic heart disease of native coronary artery without angina pectoris; B37.3 Candidiasis of vulva and vagina; I10 Essential (primary) hypertension; M19.90 Unspecified osteoarthritis, unspecified site; Z59.8 Other problems related to housing and economic circumstances; I25.2 Old myocardial infarction; Z73.3 Stress, not elsewhere classified; F32.9 Major depressive disorder, single episode, unspecified; J34.89 Other specified disorders of nose and nasal sinuses; K64.8 Other hemorrhoids; L29.8 Other pruritus; E66.9 Obesity, unspecified; R94.39 Abnormal result of other cardiovascular function study; E78.5 Hyperlipidemia, unspecified; R11.2 Nausea with vomiting, unspecified; Z68.35 Body mass index [BMI] 35.0-35.9, adult; Z90.49 Acquired absence of other specified parts of digestive tract; Z77.22 Contact with and (suspected) exposure to environmental tobacco smoke (acute) (chronic); Z91.410 Personal history of adult physical and sexual abuse; Z98.890 Other specified postprocedural states; Z82.49 Family history of ischemic heart disease and other diseases of the circulatory system; Z79.82 Long term (current) use of aspirin; Z79.899 Other long term (current) drug therapy; Z87.891 Personal history of nicotine dependence; Z87.19 Personal history of other diseases of the digestive system
CPT/HCPCS: 93005; 99285; 96374; 36415 ×4; 82553 ×4; 82962 ×4; 82550 ×4; 85025; 80048 ×2; 80053; 84484 ×4; 80061; 93306; 93017; 71045; 78452; 71275; 93010; G0378 ×5; A9500; J2785; J1815 ×7; J1650; J3490; J2405; Q9969

== ENCOUNTER 2019-07-02 16:00 | Observation (INO) | payer SELFPAY ==
--- NOTE | 2019-07-02 16:05 | ER Document Report ---
ED Medical Screen (RME) - General Chief Complaint: S/S of Possible Stroke Stated Complaint: POSSIBLE STROKE Time Seen by Provider: 07/02/19 16:02 Mode of Arrival: Wheelchair Information source: Parent Notes: Patient presents with complaint of fullness to the right side of the head and a tingling to the right leg. Patient with nausea and vomiting x2 episodes at home. Patient is hypertensive in triage. Patient reports feeling out of her body. Patient's daughter reports that patient is not acting normal. hx: Asthma, diabetes, MD I have greeted and performed a rapid initial assessment of this patient. A comprehensive ED assessment and evaluation of the patient, analysis of test results and completion of the medical decision making process will be conducted by additional ED providers. TRAVEL OUTSIDE OF THE [place] IN LAST 30 DAYS: No - Related Data Allergies/Adverse Reactions: codeine [Codeine] Allergy (Verified 12/31/17 12:15) egg [Egg] Allergy (Verified 12/31/17 12:15) milk [Milk] Allergy (Verified 12/31/17 12:15) Sulfa (Sulfonamide Antibiotics) Allergy (Verified 12/31/17 12:15) Past Medical History - Past Medical History Cardiac Medical History: Reports: Hx Heart Attack - 2011, Hx Hypercholesterolemia, Hx Hypertension - taking Lisinopril but out for 6 weeks, seen at [facility] Medical History: Reports: Hx Asthma, Hx Bronchitis, Hx Pneumonia Endocrine Medical History: Reports: Hx Diabetes Mellitus Type 2 Renal/ Medical History: Denies: Hx Peritoneal Dialysis GI Medical History: Reports: Hx Diverticulitis, Hx Irritable Bowel Musculoskeltal Medical History: Reports Hx Arthritis, Reports Hx Musculoskeletal Trauma Psychiatric Medical History: Reports: Hx Anxiety, Hx Depression Traumatic Medical History: Reports: Hx Fractures - Finger wrist of the left Past Surgical History: Reports: Hx Cholecystectomy, Hx Oral Surgery - [place] teeth, Other - ERCP - Immunizations Hx Diphtheria, Pertussis, Tetanus Vaccination: Yes Physical Exam - General Notes: No noted facial drooping - Neurological [place] Coma Scale Eye Opening: Spontaneous [place] Coma Scale Verbal: Oriented [place] Coma Scale Motor: Obeys Commands [place] Coma Scale Total: 15 Cranial nerves: No: Facial palsy
--- NOTE | 2019-07-02 16:20 | RADIOLOGY REPORT (SQ) ---
EXAM DESCRIPTION: CT HEAD WITHOUT COMPLETED DATE/TIME: 07/02/2019 4:11 pm REASON FOR STUDY: AMS, HTN COMPARISON: None. TECHNIQUE: Axial images acquired through the brain without intravenous contrast. Images reviewed wi th bone, brain and subdural windows. Additional sagittal and coronal reconstructions were generated. Images stored on PACS. All CT scanners at this facility use dose modulation, iterative reconstruction, and/or weight based d osing when appropriate to reduce radiation dose to as low as reasonably achievable (ALARA). [facility]: Dose Right [facility]: CareDose [facility]: Dose Right [facility]: Teradose 4D [facility]: Songza RADIATION DOSE: mGy. LIMITATIONS: None. FINDINGS: VENTRICLES: Prominent. CEREBRUM: No masses. No hemorrhage. No midline shift. Old lacunar infarct left basal ganglia. Are as of low density in the white matter most likely due to chronic micro-vascular ischemic change. No evidence for acute infarction. CEREBELLUM: No masses. No hemorrhage. No alteration of density. No evidence for acute infarction. EXTRAAXIAL SPACES: Mild age-related involutional change. No fluid collections. No masses. ORBITS AND GLOBE: No intra- or extraconal masses. Normal contour of globe without masses. CALVARIUM: No fracture. PARANASAL SINUSES: No fluid or mucosal thickening. SOFT TISSUES: No mass or hematoma. OTHER: No other significant finding. IMPRESSION: MILD CHRONIC CHANGES OF ATROPHY AND MICROVASCULAR ISCHEMIA. NO ACUTE PROCESS. EVIDENCE OF ACUTE STROKE: NO. TECHNICAL DOCUMENTATION: JOB ID: [id number] Quality ID # [id number]: Final reports with documentation of one or more dose reduction techniques (e.g., Au tomated exposure control, adjustment of the mA and/or kV according to patient size, use of iterative reconstruction technique) 2010 [employer]- All Rights Reserved Reading location - IP/workstation name: [email or web address]
--- NOTE | 2019-07-02 16:25 | RADIOLOGY REPORT (SQ) ---
EXAM DESCRIPTION: CHEST SINGLE VIEW COMPLETED DATE/TIME: 07/02/2019 4:16 pm REASON FOR STUDY: AMS COMPARISON: None. NUMBER OF VIEWS: One view. TECHNIQUE: Single frontal radiographic view of the chest acquired. LIMITATIONS: None. FINDINGS: LUNGS AND PLEURA: No opacities, masses or pneumothorax. No pleural effusion. MEDIASTINUM AND HILAR STRUCTURES: No masses. Contour normal. HEART AND VASCULAR STRUCTURES: Heart normal in size. Normal vasculature. BONES: No acute findings. HARDWARE: None in the chest. OTHER: No other significant finding. IMPRESSION: NO SIGNIFICANT RADIOGRAPHIC FINDING IN THE CHEST. TECHNICAL DOCUMENTATION: JOB ID: [id number] 2010 [employer]- All Rights Reserved Reading location - IP/workstation name: [email or web address]
[2019-07-02 16:39] LABS: ABSOLUTE BASOPHILS # (AUTO) 0.1 10^3/uL (0.0-0.2); ABSOLUTE EOSINOPHILS # (AUTO) 0.1 10^3/uL (0.0-0.6); ABSOLUTE LYMPHOCYTES (AUTO) 1.5 10^3/uL (0.5-4.7); ABSOLUTE MONOCYTES (AUTO) 0.5 10^3/uL (0.1-1.4); ABSOLUTE NEUT (AUTO) 6.6 10^3/uL (1.7-8.2); BASOPHILS % (AUTO) 0.7 % (0-2); EOSINOPHILS % (AUTO) 0.9 % (0-6); HEMATOCRIT 42.8 % (36.0-47.0); HEMOGLOBIN 14.9 g/dL (12.0-15.5); LYMPHOCYTES % (AUTO) 16.9 % (13-45); MEAN CORPUSCULAR HEMOGLOBIN 30.5 pg (27.0-33.4); MEAN CORPUSCULAR HGB CONC 34.8 g/dL (32.0-36.0); MEAN CORPUSCULAR VOLUME 88 fl (80-97); MONOCYTES % (AUTO) 5.8 % (3-13); PLATELET COUNT 238 10^3/uL (150-450); RED BLOOD COUNT 4.89 10^6/uL (3.72-5.28); RED CELL DISTRIBUTION WIDTH 13.3 % (11.5-14.0); SEGMENTED NEUTROPHILS % (AUTO) 75.7 % (42-78); TOTAL CELLS COUNTED % (AUTO) 100 %; WHITE BLOOD COUNT 8.7 10^3/uL (4.0-10.5)
[2019-07-02 16:45] LABS: PROTHROMBIN TIME 12.1 SEC (11.4-15.4)
[2019-07-02 16:46] LABS: PARTIAL THROMBOPLASTIN TIME 23.1 SEC (23.5-35.8)
[2019-07-02 16:59] LABS: ALBUMIN 4.2 g/dL (3.5-5.0); ALKALINE PHOSPHATASE 61 U/L (38-126); ANION GAP 7 (5-19); ASPARTATE AMINO TRANSFERASE 17 U/L (14-36); BILIRUBIN,DIRECT 0.2 mg/dL (0.0-0.4); BILIRUBIN,TOTAL 0.8 mg/dL (0.2-1.3); BLOOD UREA NITROGEN 18 mg/dL (7-20); CARBON DIOXIDE 30 mmol/L (22-30); CHLORIDE 98 mmol/L (98-107); CREATINE KINASE 39 U/L (30-135); GLUCOSE 243 mg/dL (75-110); POTASSIUM 3.8 mmol/L (3.6-5.0); TOTAL PROTEIN 7.6 g/dL (6.3-8.2)
[2019-07-02 17:10] LABS: CREATINE KINASE MB 1.25 ng/mL (<4.55)
[2019-07-02 17:11] LABS: TROPONIN I < 0.012 ng/mL
--- NOTE | 2019-07-02 17:26 | ER Document Report ---
ED Neuro Symptoms/Deficit - General Chief Complaint: S/S of Possible Stroke Stated Complaint: POSSIBLE STROKE Time Seen by Provider: 07/02/19 16:02 Mode of Arrival: Wheelchair Information source: Patient Notes: Patient complains of weakness that started 830 this morning. She also has numbness on the right side of her head and right leg. She has had aspirin today. She says it is like an out of body experience with decreased hearing in the right ear. She denies history of previous stroke. She does have a history of [place] x2 and diabetes. She has a history of hypertension but ran out of her blood pressure medication a long time ago. She tells me she is able to get insulin without seeing a physician. She denies any chest pain or abdominal pain. She has no other complaints at this time. Denies trauma. TRAVEL OUTSIDE OF THE [place] IN LAST 30 DAYS: No - Related Data Allergies/Adverse Reactions: codeine [Codeine] Allergy (Verified 12/31/17 12:15) egg [Egg] Allergy (Verified 12/31/17 12:15) milk [Milk] Allergy (Verified 12/31/17 12:15) Sulfa (Sulfonamide Antibiotics) Allergy (Verified 12/31/17 12:15) Past Medical History - General Information source: Patient, Parent - Social History Smoking Status: Unknown if Ever Smoked Family History: Arthritis, CAD, Hyperlipidemia, Hypertension, Malignancy, Thyroid Disfunction Patient has suicidal ideation: No Patient has homicidal ideation: No - Past Medical History Cardiac Medical History: Reports: Hx Heart Attack - 2011, Hx Hypercholest erolemia, Hx Hypertension - taking Lisinopril but out for 6 weeks, seen at [facility] Medical History: Reports: Hx Asthma, Hx Bronchitis, Hx Pneumonia Endocrine Medical History: Reports: Hx Diabetes Mellitus Type 2 Renal/ Medical History: Denies: Hx Peritoneal Dialysis GI Medical History: Reports: Hx Diverticulitis, Hx Irritable Bowel Musculoskeletal Medical History: Reports Hx Arthritis, Reports Hx Musculoskeletal Trauma Psychiatric Medical History: Reports: Hx Anxiety, Hx Depression Traumatic Medical History: Reports: Hx Fractures - Finger wrist of the left Past Surgical History: Reports: Hx Cholecystectomy, Hx Oral Surgery - [place] teeth, Other - ERCP - Immunizations Hx Diphtheria, Pertussis, Tetanus Vaccination: Yes Review of Systems - Review of Systems Cardiovascular: denies: Chest pain, Palpitations Neurological/Psychological: Weakness, Headaches. denies: Confusion -: Yes All other systems reviewed and negative Physical Exam - Vital signs Vitals: Resp Pulse Ox 12 98 07/02/19 16:18 07/02/19 16:18 Interpretation: Hypertensive - General General appearance: Appears well, Alert - HEENT Head: Normocephalic Eyes: Normal Extraocular movements intact: Yes Pupils: PERRL External canal: Normal Tympanic membrane: Normal Mucous membranes: Normal Pharynx: Normal - Respiratory Respiratory status: No respiratory distress Chest status: Nontender Breath sounds: Normal - Cardiovascular Rhythm: Regular Heart sounds: Normal auscultation - Abdominal Inspection: Normal Distension: No distension Bowel sounds: Normal Tenderness: Nontender - Back Back: Normal - Extremities General upper extremity: Normal inspection, Normal ROM General lower extremity: Normal inspection, Normal ROM - Neurological Neuro grossly intact: Yes Cognition: Normal Orientation: AAOx4 [place] Coma Scale Eye Opening: Spontaneous [place] Coma Scale Verbal: Oriented [place] Coma Scale Motor: Obeys Commands [place] Coma Scale Total: 15 Speech: Normal Cranial nerves: Normal Motor strength normal: LUE, RUE, LLE, RLE Additional motor exam normals: No: Pronator drift Sensory: Altered light touch Knee - Reflex grade: 2 = Normal - Psychological Associated symptoms: Normal affect, Normal mood - Skin Skin Temperature: Warm Skin Moisture: Dry Course - Re-evaluation Re-evalutation: PT IS NOT A CANDIDATE FOR TPA, SINCE SYMPTOMS STARTED OVER [address]. [address] BRAIN AND CXR NAD PER RADIOLOGIST. - Vital Signs Vital signs: Temp Pulse Resp BP Pulse Ox 100 11 L 216/101 H 98 07/02/19 16:43 07/02/19 17:01 07/02/19 17:01 07/02/19 17:01 - Laboratory Result Diagrams: 07/02/19 16:30 07/02/19 16:30 Laboratory results interpreted by me: 07/02/19 07/02/19 16:30 16:30 APTT 23.1 L Sodium 135.4 L Glucose 243 H - Diagnostic Test Radiology reviewed: Image reviewed, Reports reviewed Discharge - Discharge Clinical Impression: Weakness, Hyperglycemia CVA (cerebral vascular accident) Qualifiers: CVA mechanism: unspecified Qualified Code(s): I63.9 - Cerebral infarction, unspecified Condition: Stable Disposition: ADMITTED INPATIENT Admitting Provider: Tatiana (Hospitalist) Unit Admitted: Telemetry
[2019-07-02] MEDS ORDERED: LABETALOL HCL INJ 20 MG/4 ML DISP.SYRIN IV PRN (18:24)
[2019-07-02] MEDS ORDERED: GLUCAGON,HUMAN RECOMB 1 MG INJ IM PRN (18:30)
[2019-07-02] MEDS ORDERED: DEXTROSE 40% GEL 15 GM TUBE PO PRN ×2 (18:30)
[2019-07-02] MEDS ORDERED: DEXTROSE 50%-WATER 25 GM/50 ML DISP.SYRIN IV PRN ×2 (18:30)
[2019-07-02] MEDS ORDERED: IPRATROPIUM/ALBUTEROL 0.5-2.5 MG/3 ML AMPUL NEB PRN (18:47)
--- NOTE | 2019-07-02 18:47 | PDOC H&P ---
History of Present Illness Admission Date/PCP: 07/02/19 18:21 Patient complains of: Right facial paresthesia, right leg paresthesia, disequilibrium History of Present Illness: RUTHIE CARDENAS is a 63 year old female with a history of diabetes mellitus type 2, hypertension, asthma, hyperlipidemia, myocardial infarction x2, who presents to the hospital with complaints of new onset neurological deficits. Patient states that around 830 this morning she began experiencing numbness in her right face as well as numbness and paresthesia of her right thigh. Also states that she noted some disequilibrium when trying to walk earlier today. Admits to ear fullness in the right ear especially and a little bit in the left ear. Denies tinnitus. Denies any lightheadedness or dizziness. States that she felt generally weak when trying not necessarily focal weakness. Denies any prior similar episodes. Also states that her daughter told her that her speech was funny. States that she feels that her speech is much slower than usual. Evaluated in the ER and was deemed to be outside TPA window but referred to hospitalist service for suspected stroke. Past Medical History Cardiac Medical History: Reports: Myocardial Infarction - 2011, Hyperlipidema, Hypertension - taking Lisinopril but out for 6 weeks, seen at [facility] Medical History: Reports: Asthma Endocrine Medical History: Reports: Diabetes Mellitus Type 2 Psychiatric Medical History: Reports: Depression Hematology: Denies: Anemia Past Surgical History Past Surgical History: Reports: Cholecystectomy, Other - ERCP Social History Smoking Status: Never Smoker Electronic Cigarette use?: No Frequency of Alcohol Use: Rare Hx Recreational Drug Use: No Drugs: None Hx Prescription Drug Abuse: No - Advance Directive Resuscitation Status: Full Code Family History Family History: Arthritis, CAD, Hyperlipidemia, Hypertension, Malignancy, Thyroid Disfunction Parental Family History Reviewed: Yes Children Family History Reviewed: NA Sibling(s) Family History Reviewed.: NA Medication/Allergy Home Medications: Aspirin [Ecotrin 81 mg EC Tablet] 81 mg PO DAILY tabec 01/03/18 Atorvastatin Calcium [Lipitor 40 mg Tablet] 40 mg PO QHS tablet 01/03/18 Dextrose 50%-Water [Dextrose Inj 50% Syringe (25 gm/50 ml)] 12.5 gm IV PRN PRN disp.syrin 01/03/18 Dextrose 50%-Water [Dextrose Inj 50% Syringe (25 gm/50 ml)] 25 gm IV PRN PRN disp.syrin 01/03/18 Dextrose [Glutose 40% Gel 15 gm Tube] 15 gm PO PRN PRN tube 01/03/18 Dextrose [Glutose 40% Gel 15 gm Tube] 30 gm PO PRN PRN tube 01/03/18 Enoxaparin Sodium [Lovenox Inj 40 mg/0.4 ml Disp.syrin] 40 mg SUBCUT DAILY disp.syrin 01/03/18 Hydrocortisone Acetate [Anusol Hc 25 mg Supp.rect] 25 mg ME BIDP PRN supp.rect 01/03/18 Insulin Glargine,Hum.rec.anlog [Lantus Insulin 100 Unit/mL Insulin Pen] 10 unit SUBCUT QHS insuln.pen 01/03/18 Insulin Lispro [Humalog Insulin (Lispro) 100 unit/mL] 0 - 12 unit SUBCUT ACHSP PRN unit 01/03/18 Insulin Lispro [Humalog Insulin (Lispro) 100 unit/mL] 7 unit SUBCUT AC unit 01/03/18 Lisinopril [Prinivil 10 mg Tablet] 20 mg PO DAILY tablet 01/03/18 Metoprolol Tartrate [Lopressor 25 mg Tablet] 12.5 mg PO Q12 tablet 01/03/18 Nitroglycerin [Nitrostat 0.4 mg (1/150 Gr) Tabs 25/Bottle] 1 tab SL ASDIR PRN bottle 01/03/18 Normal Saline [Saline Flush 2.5 ml Monoject Prefil Syrin] 2.5 ml IV Q8 disp.syrin 01/03/18 Nystatin [Mycostatin Cream 15 gm] 1 applic TP BID tube 01/03/18 Allergies/Adverse Reactions: codeine [Codeine] Allergy (Verified 12/31/17 12:15) egg [Egg] Allergy (Verified 12/31/17 12:15) milk [Milk] Allergy (Verified 12/31/17 12:15) Sulfa (Sulfonamide Antibiotics) Allergy (Verified 12/31/17 12:15) Review of Systems Constitutional: ABSENT: chills, fever(s) Eyes: ABSENT: visual disturbances Ears: ABSENT: hearing changes Nose, Mouth, and Throat: ABSENT: headache(s) Cardiovascular: ABSENT: chest pain Respiratory: ABSENT: cough, dyspnea Gastrointestinal: PRESENT: nausea, vomiting. ABSENT: abdominal pain Musculoskeletal: ABSENT: muscle weakness Integumentary: ABSENT: diaphoresis Neurological: PRESENT: numbness, paresthesias. ABSENT: confusion, syncope Psychiatric: ABSENT: anxiety Endocrine: ABSENT: flushing Allergic/Immunologic: PRESENT: other - Ear fullness Physical Exam Vital Signs: Temp Pulse Resp BP Pulse Ox 98.1 F 100 20 207/102 H 98 07/02/19 16:05 07/02/19 16:43 07/02/19 18:01 07/02/19 18:01 07/02/19 18:01 Intake & Output 07/01/19 07/02/19 07/03/19 06:59 06:59 06:59 Weight 100.698 kg General appearance: PRESENT: no acute distress, cooperative Eye exam: PRESENT: EOMI, PERRLA Ear exam: PRESENT: other - Fluid within the middle ear bilaterally. ABSENT: TM's normal bilaterally Neck exam: ABSENT: JVD Respiratory exam: PRESENT: clear to auscultation alla, unlabored. ABSENT: wheezes Cardiovascular exam: PRESENT: RRR, +S1, +S2. ABSENT: tachycardia GI/Abdominal exam: PRESENT: normal bowel sounds, soft. ABSENT: rebound, rigid, tenderness Extremities exam: ABSENT: pedal edema Neurological exam: PRESENT: alert, awake, oriented to person, oriented to place, oriented to time, oriented to situation, ataxia - Very mild dysdiadochokinesia on the left hand, other - Patient has a rather odd speech pattern but not clearly aphasic. ABSENT: aphasic Psychiatric exam: PRESENT: unusual affect. ABSENT: agitated, anxious Focused psych exam: ABSENT: pressured speech Results Laboratory Results: 07/02/19 16:30 07/02/19 16:30 07/02/19 07/02/19 16:30 16:30 WBC 8.7 RBC 4.89 Hgb 14.9 Hct 42.8 MCV 88 MCH 30.5 MCHC 34.8 RDW 13.3 Plt Count 238 Seg Neutrophils % 75.7 Sodium 135.4 L Potassium 3.8 Chloride 98 Carbon Dioxide 30 Anion Gap 7 BUN 18 Creatinine 0.84 Est GFR ( Amer) > 60 Glucose 243 H Calcium 10.0 Total Bilirubin 0.8 AST 17 Alkaline Phosphatase 61 Total Protein 7.6 Albumin 4.2 07/02/19 07/02/19 16:30 16:30 Creatine Kinase 39 CK-MB (CK-2) 1.25 Troponin I < 0.012 Impressions: Chest X-Ray 07/02/19 16:03 IMPRESSION: NO SIGNIFICANT RADIOGRAPHIC FINDING IN THE CHEST. Head CT 07/02/19 16:03 IMPRESSION: MILD CHRONIC CHANGES OF ATROPHY AND MICROVASCULAR ISCHEMIA. NO ACUTE PROCESS. EVIDENCE OF ACUTE STROKE: NO. Assessment and Plan - Diagnosis (1) Neurological abnormality Is this a current diagnosis for this admission?: Yes Plan: Defined by facial paresthesia, right lower extremity paresthesia, reported change in speech pattern, and disequilibrium. NIH S score on my exam is a [address] negative However we will go ahead and treat for acute ischemic CVA with permissive hypertension, flat in bed Will check MRI of the brain Disequilibrium may be secondary to possible serous otitis media of both ears Aspirin and statin Check lipid panel and hemoglobin A1c (2) Poorly-controlled hypertension Is this a current diagnosis for this admission?: Yes Plan: Permissive hypertension until 8 AM tomorrow (3) Uncontrolled type 2 diabetes mellitus Qualifiers: Glycemic state: with hyperglycemia Qualified Code(s): E11.65 - Type 2 diabetes mellitus with hyperglycemia Is this a current diagnosis for this admission?: Yes Plan: Sliding scale insulin. Accu-Cheks, diabetic diet (4) Asthma Qualifiers: Asthma severity: unspecified severity Asthma persistence: unspecified Asthma complication type: uncomplicated Qualified Code(s): J45.909 - Unspecified asthma, uncomplicated Is this a current diagnosis for this admission?: Yes Plan: No acute exacerbation. Nebulizers as needed. - Time Time Spent with patient: 35 or more minutes
--- NOTE | 2019-07-02 21:32 | EKG REPORT ---
SEVERITY:- ABNORMAL ECG - SINUS TACHYCARDIA NONSPECIFIC INTRAVENTRICULAR CONDUCTION DELAY NONSPECIFIC ST-T CHANGES- ANTEROLATERAL LEADS : Confirmed by: Amor Royal MD 02-Jul-2019 21:30:38
[2019-07-02] MEDS: INSULIN LISPRO 100 UNIT/ML 3 ML VIAL SUBCUT SCH (22:17)
[2019-07-02] MEDS: ATORVASTATIN CALCIUM 40 MG TABLET PO SCH (22:18)
[2019-07-03 06:08] LABS: TRIGLYCERIDES 136 mg/dL (<150)
[2019-07-03 06:19] LABS: DIRECT LDL 114 mg/dL (<100)
[2019-07-03] MEDS: INSULIN LISPRO 100 UNIT/ML 3 ML VIAL SUBCUT SCH ×4 (08:42→22:34)
[2019-07-03] MEDS ORDERED: INSULIN NPH (ISOPHANE), HUMAN 100 UNIT/ML 3 ML SUBCUT SCH (09:00)
[2019-07-03] MEDS: FAMOTIDINE INJ/PF 20 MG/2 ML SDV IV SCH (09:30)
[2019-07-03] MEDS: LISINOPRIL 10 MG TABLET PO SCH (09:30)
[2019-07-03] MEDS: CLOPIDOGREL BISULFATE 75 MG TABLET PO SCH (09:30)
[2019-07-03] MEDS: ASPIRIN 81 MG TABLET, ENT COATED PO SCH (09:30)
[2019-07-03] MEDS: AMLODIPINE BESYLATE 5 MG TABLET PO SCH (09:30)
[2019-07-03] MEDS: ENOXAPARIN SODIUM INJ 40 MG/0.4 ML DISP.SYRIN SUBCUT SCH (09:30)
--- NOTE | 2019-07-03 13:44 | RADIOLOGY REPORT (SQ) ---
EXAM DESCRIPTION: CAROTID DOPPLER COMPLETED DATE/TIME: 07/03/2019 10:51 am REASON FOR STUDY: possible cva COMPARISON: None. TECHNIQUE: Grayscale ultrasound, Doppler velocity and spectra, and color Doppler images acquired of the extra-cranial carotid and vertebral arteries. Images stored on PACS. LIMITATIONS: None. FINDINGS: RIGHT CAROTID CCA Velocities: Within normal limits. ICA Velocities Peak systolic 78 cm/s. End diastolic 22 cm/s. Proximal ICA/CCA peak systolic ratio 0.96. There is some soft plaque. LEFT CAROTID CCA Velocities: Within normal limits. ICA Velocities Peak systolic 113 cm/s. End diastolic 33 cm/s. Proximal ICA/CCA peak systolic ratio some soft plaque is present.. Spectra normal. No significant plaque. VERTEBRAL ARTERIES: Antegrade flow. Normal waveforms. SUBCLAVIAN ARTERIES: No finding. OTHER: No other significant finding. IMPRESSION: NO HEMODYNAMICALLY SIGNIFICANT STENOSIS. COMMENT: Quality ID #[id number]: Velocity criteria are extrapolated from the diameter data as defined by t he Society of Radiologists in Ultrasound Consensus Conference. Radiology 2003: 229; 340-346. TECHNICAL DOCUMENTATION: JOB ID: [id number] 2010 [employer]- All Rights Reserved Reading location - IP/workstation name: [email or web address]
--- NOTE | 2019-07-03 13:55 | PDOC PROGRESS REPORT ---
Subjective Progress Note for:: 07/03/19 Subjective:: Patient states she still has some disequilibrium when she is walking and still complains of ear fullness. Right leg paresthesias have improved. Right face still experiencing some numbness. Denies any new symptoms Reason For Visit: CVA (CEREBERAL VASCULAR ACCIDENT) Physical Exam Vital Signs: Temp Pulse Resp BP Pulse Ox 97.9 F 80 18 142/76 H 97 07/03/19 12:25 07/03/19 12:25 07/03/19 12:25 07/03/19 12:25 07/03/19 12:25 Intake & Output 07/02/19 07/03/19 07/04/19 06:59 06:59 06:59 Intake Total 260 Balance 260 Weight 102 kg General appearance: PRESENT: no acute distress, cooperative Neck exam: ABSENT: JVD Respiratory exam: PRESENT: clear to auscultation alla, unlabored. ABSENT: tachypnea, wheezes Cardiovascular exam: PRESENT: RRR, +S1, +S2. ABSENT: tachycardia GI/Abdominal exam: PRESENT: normal bowel sounds, soft. ABSENT: rebound, rigid, tenderness Neurological exam: PRESENT: alert, awake, oriented to person, oriented to place, oriented to time Results Laboratory Results: 07/02/19 16:30 07/02/19 16:30 07/02/19 07/02/19 07/03/19 16:30 16:30 04:43 WBC 8.7 RBC 4.89 Hgb 14.9 Hct 42.8 MCV 88 MCH 30.5 MCHC 34.8 RDW 13.3 Plt Count 238 Seg Neutrophils % 75.7 Sodium 135.4 L Potassium 3.8 Chloride 98 Carbon Dioxide 30 Anion Gap 7 BUN 18 Creatinine 0.84 Est GFR ( Amer) > 60 Glucose 243 H Calcium 10.0 Total Bilirubin 0.8 AST 17 Alkaline Phosphatase 61 Total Protein 7.6 Albumin 4.2 Triglycerides 136 Cholesterol 180.00 LDL Cholesterol Direct 114 H VLDL Cholesterol 27.0 HDL Cholesterol 46 07/02/19 07/02/19 16:30 16:30 Creatine Kinase 39 CK-MB (CK-2) 1.25 Troponin I < 0.012 Impressions: Chest X-Ray 07/02/19 16:03 IMPRESSION: NO SIGNIFICANT RADIOGRAPHIC FINDING IN THE CHEST. Head CT 07/02/19 16:03 IMPRESSION: MILD CHRONIC CHANGES OF ATROPHY AND MICROVASCULAR ISCHEMIA. NO ACUTE PROCESS. EVIDENCE OF ACUTE STROKE: NO. Carotid Doppler Study 07/03/19 00:00 IMPRESSION: NO HEMODYNAMICALLY SIGNIFICANT STENOSIS. Assessment and Plan - Diagnosis (1) Neurological abnormality Is this a current diagnosis for this admission?: Yes Plan: Defined by facial paresthesia, right lower extremity paresthesia, reported change in speech pattern, and disequilibrium. NIH S score on my exam is a [address] negative Carotid ultrasound is normal Possible etiology include acute ischemic CVA or possible contribution from inner ear disease awaiting MRI of the brain Continue aspirin and statin (2) Poorly-controlled hypertension Is this a current diagnosis for this admission?: Yes Plan: Started on amlodipine and lisinopril. Will adjust medication dose as needed. (3) Uncontrolled type 2 diabetes mellitus Qualifiers: Glycemic state: with hyperglycemia Qualified Code(s): E11.65 - Type 2 diabetes mellitus with hyperglycemia Is this a current diagnosis for this admission?: Yes Plan: Hemoglobin A1c of 11. Sliding scale insulin. Accu-Cheks, diabetic diet I will switch NPH 18u to 70/30 insulin 22 units twice daily. (4) Asthma Qualifiers: Asthma severity: unspecified severity Asthma persistence: unspecified Asthma complication type: uncomplicated Qualified Code(s): J45.909 - Unspecified asthma, uncomplicated Is this a current diagnosis for this admission?: Yes Plan: No acute exacerbation. Nebulizers as needed. - Time Time Spent with patient: Less than 15 minutes
[2019-07-03] MEDS: HUM INSULIN NPH/REG INSULIN HM 100 UNIT/1 ML 3 ML SUBCUT SCH (17:45)
--- NOTE | 2019-07-03 21:56 | RADIOLOGY REPORT (SQ) ---
EXAM DESCRIPTION: CLINICAL HISTORY: 63 years Female cva?. Head injury at young age. Right side numbness. COMPARISON: CT head from 07/02/2019. TECHNIQUE: Multisequence multiplanar images of the brain without gadolinium. FINDINGS: Normal size ventricles. Minimal periventricular white matter chronic changes greater on the left. There are two foci of CSF signal intensity in the left basal ganglia suggestive of normal variant CSF spaces. There is an acute infarction the left kennedy. Measures approximately 14 mm in AP and between three and 6 mm in transverse diameter. Approximately 8 mm in superoinferior diameter. Does not involve the medulla oblongata. There is mild increased signal intensity in the left posterior thalamus. Series 7 image 13. Not associated with restricted diffusion. Obvious restricted diffusion. Mild edema on FLAIR and T2-weighted images. No suspect bleed. No mass effect. IMPRESSION: 1. Mild to moderate size acute infarction left kennedy. No bleed. 2. Subtle abnormality in the left posterior thalamus may be acute or chronic. Asymmetric left periventricular white matter changes more likely chronic.
[2019-07-03] MEDS: ATORVASTATIN CALCIUM 40 MG TABLET PO SCH (22:35)
[2019-07-04] MEDS: INSULIN LISPRO 100 UNIT/ML 3 ML VIAL SUBCUT SCH ×3 (08:41→17:13)
[2019-07-04] MEDS: HUM INSULIN NPH/REG INSULIN HM 100 UNIT/1 ML 3 ML SUBCUT SCH ×2 (08:42→17:12)
[2019-07-04] MEDS: FAMOTIDINE INJ/PF 20 MG/2 ML SDV IV SCH (10:24)
[2019-07-04] MEDS: LISINOPRIL 10 MG TABLET PO SCH (10:25)
[2019-07-04] MEDS: AMLODIPINE BESYLATE 5 MG TABLET PO SCH (10:25)
[2019-07-04] MEDS: ASPIRIN 81 MG TABLET, ENT COATED PO SCH (10:26)
[2019-07-04] MEDS: ENOXAPARIN SODIUM INJ 40 MG/0.4 ML DISP.SYRIN SUBCUT SCH (10:26)
[2019-07-04] MEDS: CLOPIDOGREL BISULFATE 75 MG TABLET PO SCH (10:26)
[2019-07-04] MEDS ORDERED: ACETAMINOPHEN 325 MG TABLET PO PRN (12:45)
--- NOTE | 2019-07-04 15:43 | XCELERA REPORT ---
[address] [address] Transthoracic Echocardiogram Report Name: RUTHIE CARDENAS Age: 63 yrs Gender: Female : 1955 Patient Status: Inpatient Patient Location: [address] [place], [place] [address] Study Date: 07/04/2019 09:49 AM Height: 65 in Weight: 226 lb BSA: 2.1 m2 Procedure: A complete two-dimensional transthoracic echocardiogram was performed (2D, M-mode, spectral and color flow Doppler). The study was technically adequate with some images being suboptimal in quality. Contrast with Agitated Saline. Reason For Study: CVA Ordering Physician: PING TIWARI Performed By: Glenna Gentile Interpretation Summary The left ventricle is normal in size. The left ventricular ejection fraction is normal. LV EF is 55%. Doppler measurements suggest impaired left ventricular relaxation, which is associated with grade I/IV or mild diastolic dysfunction. The left ventricular wall motion is normal. There is no thrombus. Trace to milld MR, trace TR. Agitated saline contrast study is negative for shunt at the interatrial level. MMode/2D Measurements & Calculations RVDd: 2.6 cm LVIDd: 5.2 cm FS: 25.7 % Ao root diam: IVSd: 1.1 cm LVIDs: 3.9 cm EDV(Teich): 3.2 cm 130.8 ml Ao root area: LVPWd: 1.1 cm ESV(Teich): 7.8 cm2 65.0 ml LA dimension: EF(Teich): 50.3 % 3.6 cm LVLd ap4: 9.4 cm SV(MOD-sp4): EDV(MOD-sp4): 61.0 ml 112.0 ml LVLs ap4: 7.9 cm ESV(MOD-sp4): 51.0 ml EF(MOD-sp4): 54.5 % Doppler Measurements & Calculations MV E max rickey: MV P1/2t max rickey: Ao V2 max: LV V1 max P.3 cm/sec 73.4 cm/sec 146.1 cm/sec 3.9 mmHg MV A max rickey: MV P1/2t: 93.8 msec Ao max P.5 mmHg LV V1 max: 100.4 cm/sec MVA(P1/2t): 2.3 cm2 98.7 cm/sec MV E/A: 0.72 MV dec slope: 228.9 cm/sec2 MV dec time: 0.31 sec PA V2 max: TR max rickey: MV P1/2t-pr_phl: 73.1 cm/sec 216.5 cm/sec 93.8 msec PA max P.1 mmHg TR max P.7 mmHg Left Ventricle The left ventricle is normal in size. There is normal left ventricular wall thickness. The left ventricular ejection fraction is normal. LV EF is 55%. Doppler measurements suggest impaired left ventricular relaxation, which is associated with grade I/IV or mild diastolic dysfunction. The left ventricular wall motion is normal. There is no thrombus. Atria The right atrium is normal. The left atrial size is normal. The interatrial septum is intact with no evidence for an atrial septal defect. Injection of contrast documented no interatrial shunt. Mitral Valve The mitral valve is normal in structure and function. There is no evidence of mitral valve prolapse. There is no mitral valve stenosis. There is a trace to mild amount of mitral regurgitation. Aortic Valve The aortic valve is normal in structure and functions normally. There is no aortic valve stenosis. No aortic regurgitation is present. Tricuspid Valve The tricuspid valve is not well visualized, but is grossly normal. There is a trace to mild amount of tricuspid regurgitation. Pulmonic Valve The pulmonic valve is not well visualized. There is no pulmonic valvular regurgitation. : PING TIWARI [place]
--- NOTE | 2019-07-04 16:14 | RADIOLOGY REPORT (SQ) ---
EXAM DESCRIPTION: CTA HEAD COMPLETED DATE/TIME: 07/04/2019 4:04 pm REASON FOR STUDY: CVA evaluation COMPARISON: 07/02/2019 TECHNIQUE: Axial images acquired through the brain without and with intravenous contrast. Images re viewed with bone, brain and subdural windows. Additional sagittal and coronal reconstructions were g enerated. Images stored on PACS. CT angio [place] was performed. Thin section postcontrast CT images were reviewed with maxim um intensity projected images of the [place] in multiple orientations. All CT scanners at this facility use dose modulation, iterative reconstruction, and/or weight based d osing when appropriate to reduce radiation dose to as low as reasonably achievable (ALARA). [facility]: Dose Right [facility]: CareDose [facility]: Dose Right [facility]: Teradose 4D [facility]: hoccer CONTRAST TYPE AND DOSE: contrast/concentration: Isovue 350.00 mg/ml; Total Contrast Delivered: 80.0 ml; Total Saline Delivered: 75.0 ml RENAL FUNCTION: GFR > 60. RADIATION DOSE: CT Rad equipment meets quality standard of care and radiation dose reduction techniq ues were employed. CTDIvol: 48.7 - 130.6 mGy. DLP: 1188 mGy-cm.. LIMITATIONS: None. FINDINGS: VENTRICLES: Normal size and contour. CEREBRUM: No masses. No hemorrhage. No midline shift. No evidence for acute infarction. Few scatte red areas of low density in the white matter most likely chronic small vessel ischemic changes. CEREBELLUM: No masses. No hemorrhage. No alteration of density. No evidence for acute infarction. No enhancing lesions. EXTRA-AXIAL SPACES: No fluid collections. No enhancing lesions. ORBITS AND GLOBE: No intra- or extraconal masses. Normal contour of globe without masses. CALVARIUM: No fracture. PARANASAL SINUSES: No fluid or mucosal thickening. SOFT TISSUES: No mass or hematoma. OTHER: No other significant finding. CTA COW: [place]: The anterior, middle, posterior cerebral arteries are all patent. No evidence of a neurysm or focal stenosis. POSTERIOR CIRCULATION: The distal vertebral arteries are patent as is the basilar artery. No aneurysm . OTHER: No other significant finding. IMPRESSION: MILD CHRONIC MICROVASCULAR ISCHEMIA. NO ACUTE IMAGING FINDINGS IN THE BRAIN. NO CTA EVIDENCE OF STENOSIS OR ANEURYSM OF THE [place] OF [place]. EVIDENCE OF ACUTE STROKE: NO. TECHNICAL DOCUMENTATION: JOB ID: [id number] Quality ID # [id number]: Final reports with documentation of one or more dose reduction techniques (e.g., Au tomated exposure control, adjustment of the mA and/or kV according to patient size, use of iterative reconstruction technique) 2010 [employer]- All Rights Reserved Reading location - IP/workstation name: [email or web address]-
--- NOTE | 2019-07-04 17:06 | PDOC DISCHARGE SUMMARY ---
Impression - Admit/DC Date/PCP Admission Date/Primary Care Provider: 07/02/19 18:21 Discharge Date: 07/04/19 - Discharge Diagnosis (1) Acute ischemic stroke Is this a current diagnosis for this admission?: Yes (2) Poorly-controlled hypertension Is this a current diagnosis for this admission?: Yes (3) Uncontrolled type 2 diabetes mellitus Is this a current diagnosis for this admission?: Yes (4) Asthma Is this a current diagnosis for this admission?: Yes - Additional Information Resuscitation Status: Full Code Discharge Diet: Cardiac Discharge Activity: Activity As Tolerated Referrals: [facility] [Provider Group] Prescriptions: Aspirin [Ecotrin 81 mg EC Tablet] 81 mg PO DAILY #30 tabec Hum Insulin NPH/Reg Insulin Hm [Insulin 70-30 (NPH/Reg) 100 unit/mL] 22 unit SUBCUT BIDACBS #10 ml Atorvastatin Calcium [Lipitor 40 mg Tablet] 40 mg PO QHS #30 tablet Amlodipine Besylate [Norvasc 5 mg Tablet] 5 mg PO DAILY #30 tablet Clopidogrel Bisulfate [Plavix 75 mg Tablet] 75 mg PO DAILY 21 Days #21 tablet Lisinopril [Prinivil] 20 mg PO DAILY #30 tablet Home Medications: Amlodipine Besylate [Norvasc 5 mg Tablet] 5 mg PO DAILY #30 tablet 07/04/19 Aspirin [Ecotrin 81 mg EC Tablet] 81 mg PO DAILY #30 tabec 07/04/19 Atorvastatin Calcium [Lipitor 40 mg Tablet] 40 mg PO QHS #30 tablet 07/04/19 Clopidogrel Bisulfate [Plavix 75 mg Tablet] 75 mg PO DAILY 21 Days #21 tablet 07/04/19 Hum Insulin NPH/Reg Insulin Hm [Insulin 70-30 (NPH/Reg) 100 unit/mL] 22 unit SUBCUT BIDACBS #10 ml 07/04/19 Lisinopril [Prinivil] 20 mg PO DAILY #30 tablet 07/04/19 History of Present Illiness History of Present Illness: RUTHIE CARDENAS is a 63 year old female with a history of diabetes mellitus type 2, hypertension, asthma, hyperlipidemia, myocardial infarction x2, who presents to the hospital with complaints of new onset neurological deficits. Patient states that around 830 this morning she began experiencing numbness in her right face as well as numbness and paresthesia of her right thigh. Also states that she noted some disequilibrium when trying to walk earlier today. Admits to ear fullness in the right ear especially and a little bit in the left ear. Denies tinnitus. Denies any lightheadedness or dizziness. States that she felt generally weak when trying not necessarily focal weakness. Denies any prior similar episodes. Also states that her daughter told her that her speech was funny. States that she feels that her speech is much slower than usual. Evaluated in the ER and was deemed to be outside TPA window but referred to hospitalist service for suspected stroke. Hospital Course Hospital Course: Patient was admitted for evaluation of a stroke. Patient was noted to have some aphasia and mild dysarthria as well as right facial paresthesia. No ataxia was noted on neurological exam even though patient did complain of some disequilibrium. She also complained of right leg paresthesia. On presentation, patient was outside the TPA window and as such did not receive TPA. Stroke protocol was executed and patient was managed with permissive hypertension, bedrest for 24 hours, risk assessment, neurochecks amongst others. Head CT was negative for any bleed. Carotid ultrasound as well as CTA of the head both showed no evidence of neurovascular occlusion/blockage or aneurysm. MRI of the brain confirmed mild to moderate acute infarct involving the left kennedy as well as age-indeterminate lesion of the thalamus. Echocardiogram showed no evidence of intramural thrombus or intracardiac shunting. Patient has been started on aspirin, atorvastatin as well as 21 days of Plavix. Telemetry was reviewed and showed no evidence of arrhythmia. Patient was evaluated and cleared by physical therapy and patient is being set up for outpatient PT and Occupational Therapy. Patient was also evaluated by the speech therapist and patient has been set up for outpatient speech therapy as well. Patient's hemoglobin A1c was very elevated depicting poor diabetes control and her blood pressure was uncontrolled. I have adjusted patient's insulin regimen and also started patient on antihypertensive medications. Patient is being discharged in safe stable condition to follow-up with neurologist outpatient [facility]. Discharge planning consulted as well to help patient with application for Medicaid. Physical Exam Vital Signs: Temp Pulse Resp BP Pulse Ox 97.6 F 77 16 146/71 H 100 07/04/19 12:01 07/04/19 16:00 07/04/19 16:00 07/04/19 16:00 07/04/19 16:00 Intake & Output 07/03/19 07/04/19 07/05/19 06:59 06:59 06:59 Intake Total 260 2097 Output Total 500 Balance 260 1597 Weight 102 kg 102.7 kg General appearance: PRESENT: no acute distress, cooperative Neck exam: ABSENT: JVD Neurological exam: PRESENT: alert, awake, oriented to person, oriented to place, oriented to time, oriented to situation Results Laboratory Results: WBC 8.7 10^3/uL (4.0-10.5) 07/02/19 16:30 RBC 4.89 10^6/uL (3.72-5.28) 07/02/19 16:30 Hgb 14.9 g/dL (12.0-15.5) 07/02/19 16:30 Hct 42.8 % (36.0-47.0) 07/02/19 16:30 MCV 88 fl (80-97) 07/02/19 16:30 MCH 30.5 pg (27.0-33.4) 07/02/19 16:30 MCHC 34.8 g/dL (32.0-36.0) 07/02/19 16:30 RDW 13.3 % (11.5-14.0) 07/02/19 16:30 Plt Count 238 10^3/uL (150-450) 07/02/19 16:30 Lymph % (Auto) 16.9 % (13-45) 07/02/19 16:30 Bennett % (Auto) 5.8 % (3-13) 07/02/19 16:30 Eos % (Auto) 0.9 % (0-6) 07/02/19 16:30 Baso % (Auto) 0.7 % (0-2) 07/02/19 16:30 Absolute Neuts (auto) 6.6 10^3/uL (1.7-8.2) 07/02/19 16:30 Absolute Lymphs (auto) 1.5 10^3/uL (0.5-4.7) 07/02/19 16:30 Absolute Monos (auto) 0.5 10^3/uL (0.1-1.4) 07/02/19 16:30 Absolute Eos (auto) 0.1 10^3/uL (0.0-0.6) 07/02/19 16:30 Absolute Basos (auto) 0.1 10^3/uL (0.0-0.2) 07/02/19 16:30 Seg Neutrophils % 75.7 % (42-78) 07/02/19 16:30 PT 12.1 SEC (11.4-15.4) 07/02/19 16:30 INR 0.90 07/02/19 16:30 APTT 23.1 SEC (23.5-35.8) L 07/02/19 16:30 Sodium 135.4 mmol/L (137-145) L 07/02/19 16:30 Potassium 3.8 mmol/L (3.6-5.0) 07/02/19 16:30 Chloride 98 mmol/L (98-107) 07/02/19 16:30 Carbon Dioxide 30 mmol/L (22-30) 07/02/19 16:30 Anion Gap 7 (5-19) 07/02/19 16:30 BUN 18 mg/dL (7-20) 07/02/19 16:30 Creatinine 0.84 mg/dL (0.52-1.25) 07/02/19 16:30 Est GFR ( Amer) > 60 (>60) 07/02/19 16:30 Est GFR (MDRD) Non-Af > 60 (>60) 07/02/19 16:30 Glucose 243 mg/dL (75-110) H 07/02/19 16:30 POC Glucose 275 mg/dL (70-110) H 07/04/19 12:01 Hemoglobin A1c % 11.1 % (4.7-6.0) H 07/03/19 04:43 Calcium 10.0 mg/dL (8.4-10.2) 07/02/19 16:30 Total Bilirubin 0.8 mg/dL (0.2-1.3) 07/02/19 16:30 Direct Bilirubin 0.2 mg/dL (0.0-0.4) 07/02/19 16:30 Neonat Total Bilirubin Not Reportable 07/02/19 16:30 Neonat Direct Bilirubin Not Reportable 07/02/19 16:30 Neonat Indirect Bili Not Reportable 07/02/19 16:30 AST 17 U/L (14-36) 07/02/19 16:30 ALT 18 U/L (<35) 07/02/19 16:30 Alkaline Phosphatase 61 U/L (38-126) 07/02/19 16:30 Creatine Kinase 39 U/L (30-135) 07/02/19 16:30 CK-MB (CK-2) 1.25 ng/mL (<4.55) 07/02/19 16:30 Troponin I < 0.012 ng/mL 07/02/19 16:30 Total Protein 7.6 g/dL (6.3-8.2) 07/02/19 16:30 Albumin 4.2 g/dL (3.5-5.0) 07/02/19 16:30 Triglycerides 136 mg/dL (<150) 07/03/19 04:43 Cholesterol 180.00 mg/dL (0-200) 07/03/19 04:43 LDL Cholesterol Direct 114 mg/dL (<100) H 07/03/19 04:43 VLDL Cholesterol 27.0 mg/dL (10-31) 07/03/19 04:43 HDL Cholesterol 46 mg/dL (>40) 07/03/19 04:43 07/02/19 16:30 CK-MB (CK-2) 1.25 Troponin I < 0.012 Impressions: Chest X-Ray 07/02/19 16:03 IMPRESSION: NO SIGNIFICANT RADIOGRAPHIC FINDING IN THE CHEST. Head CT 07/02/19 16:03 IMPRESSION: MILD CHRONIC CHANGES OF ATROPHY AND MICROVASCULAR ISCHEMIA. NO ACUTE PROCESS. EVIDENCE OF ACUTE STROKE: NO. Carotid Doppler Study 07/03/19 00:00 IMPRESSION: NO HEMODYNAMICALLY SIGNIFICANT STENOSIS. Head MRI 07/03/19 00:00 IMPRESSION: 1. Mild to moderate size acute infarction left kennedy. No bleed. 2. Subtle abnormality in the left posterior thalamus may be acute or chronic. Asymmetric left periventricular white matter changes more likely chronic. Head CTA 07/04/19 00:00 IMPRESSION: MILD CHRONIC MICROVASCULAR ISCHEMIA. NO ACUTE IMAGING FINDINGS IN THE BRAIN. NO CTA EVIDENCE OF STENOSIS OR ANEURYSM OF THE [place]. EVIDENCE OF ACUTE STROKE: NO. Plan Time Spent: Greater than 30 Minutes Stroke Is this a Stroke Patient?: Yes Stroke Pt being discharged on Anti-thrombolytic therapy?: Yes Stroke Pt being discharged on Anti-coagulation therapy?: No Reason(s) for not prescribing Anti-coagulation therapy:: Not indicated Stroke Pt being discharged on Statins?: Yes Acute Heart Failure - Is this a Heart Failure Patient?: No
[2019-07-04 17:24] VITALS: BP 177/88
== END 2019-07-04 18:39 | disposition home or self-care (01) ==
LOC: ER 16:00 → EH 18:21 → 3W 21:24
PROVIDERS: ADMIT Internal Medicine; ATTEND Internal Medicine
DX: I63.89 Other cerebral infarction (principal); R47.01 Aphasia; R47.1 Dysarthria and anarthria; R20.2 Paresthesia of skin; R26.81 Unsteadiness on feet; I10 Essential (primary) hypertension; E11.65 Type 2 diabetes mellitus with hyperglycemia; J45.909 Unspecified asthma, uncomplicated; E78.5 Hyperlipidemia, unspecified; R11.2 Nausea with vomiting, unspecified; H93.8X9 Other specified disorders of ear, unspecified ear; I25.2 Old myocardial infarction; R29.702 NIHSS score 2
CPT/HCPCS: 93005; 99285; 36415 ×2; 82553; 82962 ×3; 82550; 85025; 85610; 85730; 80053; 84484; 83036; 80061; 93306; 93880; 70551; 71045; 70450; 70496; 93010; 97530 ×2; 97110; 97116 ×2; 97163; 92507; 92522; 97535 ×2; 97167; J1815 ×6; J3490; J1650 ×2; S0028; G0378

== ENCOUNTER 2019-12-17 16:29 | Inpatient (IN) | payer SELFPAY ==
[2019-12-17] MEDS ORDERED: METHYLPREDNISOLONE INJ 125 MG/2 ML SDV IV ONE (16:53)
--- NOTE | 2019-12-17 16:55 | ER Document Report ---
ED Medical Screen (RME) - General Chief Complaint: Breathing Difficulty Stated Complaint: DIFFICULTY BREATHING Time Seen by Provider: 12/17/19 16:43 Mode of Arrival: Wheelchair Information source: Patient Notes: 64-year-old female presented to ED for complaint of shortness of breath. Patient states she has not had her inhaler today because she cannot find it. She states she is on Symbicort and a albuterol inhaler. She states she also has not had a blood pressure medicine since July because she could not afford. Her blood pressure medicine cost $4 a month. Her blood pressure is 212/120 manual her pulse is 124 with O2 sat of 93. Her respirations are between 22 and 32. I have contacted the charge nurse who stated that she would need to go to the pod 5. She is being seen during the coronavirus pandemic I have greeted and performed a rapid initial assessment of this patient. A comprehensive ED assessment and evaluation of the patient, analysis of test results and completion of medical decision making process will be conducted by an additional ED providers. TRAVEL OUTSIDE OF THE [place] IN LAST 30 DAYS: No - Related Data Allergies/Adverse Reactions: coconut Allergy (Verified 07/03/19 09:05) codeine [Codeine] Allergy (Verified 12/31/17 12:15) egg [Egg] Allergy (Verified 12/31/17 12:15) milk [Milk] Allergy (Verified 12/31/17 12:15) Sulfa (Sulfonamide Antibiotics) Allergy (Verified 12/31/17 12:15) adhesive tape Adverse Reaction (Verified 07/03/19 09:05) Past Medical History - Past Medical History Cardiac Medical History: Reports: Hx Heart Attack - 2011, Hx Hypercholesterolemia, Hx Hypertension - taking Lisinopril but out for 6 weeks, seen at [facility] Medical History: Reports: Hx Asthma, Hx Bronchitis, Hx Pneumonia Endocrine Medical History: Reports: Hx Diabetes Mellitus Type 2 Renal/ Medical History: Denies: Hx Peritoneal Dialysis GI Medical History: Reports: Hx Diverticulitis, Hx Irritable Bowel Musculoskeltal Medical History: Reports Hx Arthritis, Reports Hx Musculoskeletal Trauma Psychiatric Medical History: Reports: Hx Anxiety, Hx Depression Traumatic Medical History: Reports: Hx Fractures - Finger wrist of the left Past Surgical History: Reports: Hx Cholecystectomy, Hx Oral Surgery - [place] teeth, Other - ERCP - Immunizations Hx Diphtheria, Pertussis, Tetanus Vaccination: Yes Physical Exam - Vital signs Vitals: Temp Pulse Resp BP Pulse Ox 97.5 F 127 H 22 H 205/123 H 94 12/17/19 16:35 12/17/19 16:35 12/17/19 16:35 12/17/19 16:35 12/17/19 16:35 Course - Vital Signs Vital signs: Temp Pulse Resp BP Pulse Ox 97.5 F 127 H 22 H 205/123 H 94 12/17/19 16:35 12/17/19 16:35 12/17/19 16:35 12/17/19 16:35 12/17/19 16:35
[2019-12-17] MEDS ORDERED: ALBUTEROL SULFATE HFA (90 MCG/PUFF) 8 GM MDI (1 MDI/ER DISP) IH SCH (17:00)
[2019-12-17 17:21] LABS: ABSOLUTE BASOPHILS # (AUTO) 0.1 10^3/uL (0.0-0.2); ABSOLUTE EOSINOPHILS # (AUTO) 0.2 10^3/uL (0.0-0.6); ABSOLUTE LYMPHOCYTES (AUTO) 1.6 10^3/uL (0.5-4.7); ABSOLUTE MONOCYTES (AUTO) 0.6 10^3/uL (0.1-1.4); BASOPHILS % (AUTO) 0.6 % (0-2); EOSINOPHILS % (AUTO) 1.4 % (0-6); HEMATOCRIT 41.6 % (36.0-47.0); HEMOGLOBIN 14.1 g/dL (12.0-15.5); LYMPHOCYTES % (AUTO) 12.8 % (13-45); MEAN CORPUSCULAR HEMOGLOBIN 30.5 pg (27.0-33.4); MEAN CORPUSCULAR HGB CONC 33.9 g/dL (32.0-36.0); MEAN CORPUSCULAR VOLUME 90 fl (80-97); PLATELET COUNT 230 10^3/uL (150-450); RED BLOOD COUNT 4.63 10^6/uL (3.72-5.28); SEGMENTED NEUTROPHILS % (AUTO) 80.2 % (42-78); TOTAL CELLS COUNTED % (AUTO) 100 %; WHITE BLOOD COUNT 12.5 10^3/uL (4.0-10.5)
[2019-12-17] MEDS ORDERED: NITROGLYCERIN/D5W 50 MG/250 ML RTUINJ IV PRN ×2 (17:28→19:08)
[2019-12-17] MEDS ORDERED: ASPIRIN 325 MG TABLET PO ONE (17:28)
--- NOTE | 2019-12-17 17:35 | ER Document Report ---
ED General - General Chief Complaint: Shortness Of Breath Stated Complaint: DIFFICULTY BREATHING Time Seen by Provider: 12/17/19 16:43 Mode of Arrival: Wheelchair Notes: 64-year-old female with a history of asthma since childhood presents with worsening shortness of breath. Is been going on intermittently for about a week and a half. She took some inhaler of her daughters and it got better but then has been worse over the last couple of days. Non-positional. Mild chest pressure but no pain. No cough no fever no covert exposure. No leg swelling. Has been off of her hypertension meds and out of primary care for months due to financial issues. Denies a history of heart problems but has had a stroke. Initially roomed in pod 5-minute subacute bed with no monitor in the COVID eye shows known TRAVEL OUTSIDE OF THE [place] IN LAST 30 DAYS: No - Related Data Allergies/Adverse Reactions: coconut Allergy (Verified 12/17/19 17:04) codeine [Codeine] Allergy (Verified 12/17/19 17:04) egg [Egg] Allergy (Verified 12/17/19 17:04) milk [Milk] Allergy (Verified 12/17/19 17:04) Sulfa (Sulfonamide Antibiotics) Allergy (Verified 12/17/19 17:04) tuna oil Allergy (Verified 12/17/19 17:04) adhesive tape Adverse Reaction (Verified 12/17/19 17:04) Past Medical History - General Information source: Patient - Social History Smoking Status: Unknown if Ever Smoked Chew tobacco use (# tins/day): No Frequency of alcohol use: None Drug Abuse: None Family History: Arthritis, CAD, Hyperlipidemia, Hypertension, Malignancy, Thyroid Disfunction Patient has homicidal ideation: No - Past Medical History Cardiac Medical History: Reports: Hx Heart Attack - 2011, Hx Hyperchol esterolemia, Hx Hypertension - taking Lisinopril but out for 6 weeks, seen at [facility] Medical History: Reports: Hx Asthma, Hx Bronchitis, Hx Pneumonia Endocrine Medical History: Reports: Hx Diabetes Mellitus Type 2 Renal/ Medical History: Denies: Hx Peritoneal Dialysis GI Medical History: Reports: Hx Diverticulitis, Hx Irritable Bowel Musculoskeletal Medical History: Reports Hx Arthritis, Reports Hx Musculoskeletal Trauma Psychiatric Medical History: Reports: Hx Anxiety, Hx Depression Traumatic Medical History: Reports: Hx Fractures - Finger wrist of the left Past Surgical History: Reports: Hx Cholecystectomy, Hx Oral Surgery - [place] teeth, Other - ERCP - Immunizations Hx Diphtheria, Pertussis, Tetanus Vaccination: Yes Review of Systems - Review of Systems Notes: REVIEW OF SYSTEMS GEN: Denies fever, chills, weight loss ENT: Denies sore throat, nasal discharge, ear pain EYES: Denies blurry vision, eye pain, discharge CV: Chest pressure RESP: As of breath GI: Denies abdominal pain, nausea, vomiting, diarrhea MSK: Denies joint pain/swelling, edema, SKIN: Denies rash, skin lesions LYMPH: Denies swollen glands/lymph nodes NEURO: Denies headache, focal weakness or numbness, dizziness PSYCH: Denies depression, suicidal or homicidal ideation PHYSICAL EXAMINATION General: Tripod position bolt upright Head: Atraumatic, normocephalic ENT: Mouth normal, oropharynx moist, no exudates or tonsillar enlargement Eyes: Conjunctiva normal, pupils equal, lids normal Neck: No JVD, supple, no guarding CVS: Normal rate, regular rhythm, no murmurs Resp: Shallow breathing with no wheezing and reasonable air movement bilaterally GI: Nondistended, soft, no tenderness to palpation, no rebound or guarding Ext: No deformities, no edema, normal range of motion in upper and lower ext Back: No CVA or midline TTP Skin: No rash, warm Lymphatic: No lymphadeopathy noted Neuro: Awake, alert. Face symmetric. GCS 15. Physical Exam - Vital signs Vitals: Temp Pulse Resp BP Pulse Ox 97.5 F 127 H 22 H 205/123 H 94 12/17/19 16:35 12/17/19 16:35 12/17/19 16:35 12/17/19 16:35 12/17/19 16:35 Course - Re-evaluation Re-evalutation: 12/17/19 20:23 Patient presents with acute respiratory failure with mild hypoxia and severe hypertension. She thinks it asthma I think is heart failure She is been noncompliant with her medications. Her EKG shows nonspecific changes consistent with LVH and re-pole but no acute ischemia She had been given steroids and a neb previously but I am going to transition to a CHF plan She was placed on nitro which was uptitrated by me and she was moved to the trauma room for better visualization from pod 5. Trope is normal BNP is elevated and chest x-ray is consistent with pulmonary edema. Given aspirin. Patient was discussed with Dr. Velazquez will admit to the [facility]. - Vital Signs Vital signs: Temp Pulse Resp BP Pulse Ox 97.5 F 127 H 19 178/107 H 100 12/17/19 16:35 12/17/19 16:35 12/17/19 18:26 12/17/19 18:26 12/17/19 18:26 - Laboratory Result Diagrams: 12/17/19 17:12 12/17/19 17:12 Laboratory results interpreted by me: 12/17/19 12/17/19 12/17/19 17:12 17:12 17:12 WBC 12.5 H Lymph % (Auto) 12.8 L Absolute Neuts (auto) 10.0 H Seg Neutrophils % 80.2 H BUN 22 H Glucose 205 H NT-Pro-B Natriuret Pep 1770 H - Diagnostic Test Radiology reviewed: Image reviewed, Reports reviewed - EKG Interpretation by Me EKG shows normal: Sinus rhythm Rate: Normal, Tachycardia When compared to previous EKG there are: Previous EKG unavailable - LATERAL T WAVE CHANGES Critical Care Note - Critical Care Note Total time excluding time spent on procedures (mins): 35 Comments: The above patient is critically ill. Not including procedures, but including direct re-evaluations, speaking with patient and/or consultants, interpreting results, and documenting, I spent the total amount of minute listed listed above on critical care time Discharge - Discharge Clinical Impression: Hypertensive emergency Condition: Critical Disposition: ADMITTED INPATIENT Admitting Provider: Marcus (Hospitalist) Unit Admitted: [facility]
--- NOTE | 2019-12-17 17:40 | RADIOLOGY REPORT (SQ) ---
EXAM DESCRIPTION: CHEST SINGLE VIEW IMAGES COMPLETED DATE/TIME: 12/17/2019 5:26 pm REASON FOR STUDY: Severe short of breath COMPARISON: 07/02/2019 EXAM PARAMETERS: NUMBER OF VIEWS: One view. TECHNIQUE: Single frontal radiographic view of the chest acquired. RADIATION DOSE: NA LIMITATIONS: None. FINDINGS: LUNGS AND PLEURA: Increased interstitial markings without focal consolidation. Small bila teral pleural effusions may be present. No pneumothorax. MEDIASTINUM AND HILAR STRUCTURES: No masses. Contour normal. HEART AND VASCULAR STRUCTURES: Cardiomegaly with central vascular congestion. BONES: No acute findings. HARDWARE: None in the chest. OTHER: No other significant finding. IMPRESSION: Constellation of findings consistent with CHF exacerbation. Superimposed infectious pro cess is not excluded. TECHNICAL DOCUMENTATION: JOB ID: [id number] 2010 [employer]- All Rights Reserved Reading location - IP/workstation name: [email or web address]
[2019-12-17 17:42] LABS: ALBUMIN 4.2 g/dL (3.5-5.0); ALKALINE PHOSPHATASE 60 U/L (38-126); ANION GAP 8 (5-19); ASPARTATE AMINO TRANSFERASE 28 U/L (14-36); BILIRUBIN,DIRECT 0.3 mg/dL (0.0-0.4); BILIRUBIN,TOTAL 0.6 mg/dL (0.2-1.3); BLOOD UREA NITROGEN 22 mg/dL (7-20); CALCIUM 9.9 mg/dL (8.4-10.2); CARBON DIOXIDE 26 mmol/L (22-30); CHLORIDE 105 mmol/L (98-107); GLUCOSE 205 mg/dL (75-110); TOTAL PROTEIN 7.3 g/dL (6.3-8.2)
[2019-12-17] MEDS ORDERED: FUROSEMIDE INJ/PF 20 MG/2 ML SDV IV ONE ×2 (18:17→18:56)
[2019-12-17] MEDS ORDERED: MAGNESIUM HYDROXIDE SUSP 30 ML UDCUP PO PRN (19:08)
[2019-12-17] MEDS ORDERED: NITROGLYCERIN 0.4 MG/TAB 25 TAB/BOTTLE SL PRN (19:08)
[2019-12-17] MEDS ORDERED: ACETAMINOPHEN 325 MG TABLET PO PRN (19:08)
[2019-12-17] MEDS ORDERED: MAG HYDROX/AL HYDROX/SIMETH SUSP 30 ML UDCUP PO PRN (19:08)
[2019-12-17] MEDS ORDERED: PROMETHAZINE HCL INJ 25 MG/1 ML VIAL IV PRN (19:08)
[2019-12-17] MEDS ORDERED: IPRATROPIUM/ALBUTEROL 0.5-2.5 MG/3 ML AMPUL NEB PRN (19:18)
[2019-12-17] MEDS ORDERED: DEXTROSE 50%-WATER 25 GM/50 ML DISP.SYRIN IV PRN ×2 (19:19)
[2019-12-17] MEDS ORDERED: GLUCAGON,HUMAN RECOMB 1 MG INJ IM PRN (19:19)
[2019-12-17] MEDS ORDERED: DEXTROSE 40% GEL 15 GM TUBE PO PRN ×2 (19:19)
--- NOTE | 2019-12-17 19:23 | PDOC H&P ---
History of Present Illness Admission Date/PCP: 12/17/19 18:48 Patient complains of: Shortness of breath History of Present Illness: RUTHIE CARDENAS is a 64 year old female Past Medical History Cardiac Medical History: Reports: Myocardial Infarction - 2011, Hyperlipidema, Hypertension - taking Lisinopril but out for 6 weeks, seen at [facility] Medical History: Reports: Asthma, Bronchitis, Pneumonia Endocrine Medical History: Reports: Diabetes Mellitus Type 2 GI Medical History: Reports: Diverticulitis Musculoskeltal Medical History: Reports: Arthritis Psychiatric Medical History: Reports: Depression Hematology: Denies: Anemia Past Surgical History Past Surgical History: Reports: Cholecystectomy, Other - ERCP Social History Information Source: Patient, [facility] Records Lives with: Alone Smoking Status: Unknown if Ever Smoked Electronic Cigarette use?: No Frequency of Alcohol Use: Rare Hx Recreational Drug Use: No Drugs: None Hx Prescription Drug Abuse: No - Advance Directive Resuscitation Status: Full Code Family History Family History: Arthritis, CAD, Hyperlipidemia, Hypertension, Malignancy, Thyroid Disfunction Parental Family History Reviewed: Yes Children Family History Reviewed: Yes Sibling(s) Family History Reviewed.: Yes Medication/Allergy Home Medications: Amlodipine Besylate [Norvasc 5 mg Tablet] 5 mg PO DAILY #30 tablet 07/04/19 Aspirin [Ecotrin 81 mg EC Tablet] 81 mg PO DAILY #30 tabec 07/04/19 Atorvastatin Calcium [Lipitor 40 mg Tablet] 40 mg PO QHS #30 tablet 07/04/19 Clopidogrel Bisulfate [Plavix 75 mg Tablet] 75 mg PO DAILY 21 Days #21 tablet 07/04/19 Lisinopril [Prinivil] 20 mg PO DAILY #30 tablet 07/04/19 Insulin NPH Human Isophane [Novolin N Flexpen] 12 unit SQ BID 12/18/19 Insulin Regular, Human [Novolin R] 8 unit SQ TID 12/18/19 Allergies/Adverse Reactions: coconut Allergy (Verified 12/17/19 17:04) codeine [Codeine] Allergy (Verified 12/17/19 17:04) egg [Egg] Allergy (Verified 12/17/19 17:04) milk [Milk] Allergy (Verified 12/17/19 17:04) Sulfa (Sulfonamide Antibiotics) Allergy (Verified 12/17/19 17:04) tuna oil Allergy (Verified 12/17/19 17:04) adhesive tape Adverse Reaction (Verified 12/17/19 17:04) Review of Systems All systems: reviewed and no additional remarkable complaints except as stated Constitutional: PRESENT: fatigue, weakness Respiratory: PRESENT: dyspnea Physical Exam Vital Signs: Temp Pulse Resp BP Pulse Ox 97.5 F 127 H 19 178/107 H 100 12/17/19 16:35 12/17/19 16:35 12/17/19 18:26 12/17/19 18:26 12/17/19 18:26 Intake & Output 12/16/19 12/17/19 12/18/19 06:59 06:59 06:59 Intake Total 2 Balance 2 Weight 105.687 kg General appearance: PRESENT: morbidly obese, other - moderate distress Head exam: PRESENT: atraumatic, normocephalic Ear exam: PRESENT: normal external ear exam. ABSENT: bleeding, drainage Mouth exam: PRESENT: moist, tongue midline Neck exam: ABSENT: carotid bruit, lymphadenopathy Respiratory exam: PRESENT: rales, symmetrical, tachypnea, wheezes. ABSENT: rhonchi Cardiovascular exam: PRESENT: RRR, +S1, +S2. ABSENT: bradycardia, diastolic murmur, irregular rhythm, systolic murmur, tachycardia GI/Abdominal exam: PRESENT: normal bowel sounds, soft. ABSENT: tenderness Rectal exam: PRESENT: deferred Extremities exam: PRESENT: pedal edema Musculoskeletal exam: PRESENT: normal inspection. ABSENT: deformity, dislocation Neurological exam: PRESENT: alert, awake, oriented to person, oriented to place, oriented to time, oriented to situation Psychiatric exam: PRESENT: flat affect. ABSENT: agitated, anxious Focused psych exam: ABSENT: delusional, paranoid, restlessness Skin exam: PRESENT: dry, intact, normal color, warm. ABSENT: rash Results Laboratory Results: 12/17/19 17:12 12/17/19 17:12 12/17/19 12/17/19 17:12 17:12 WBC 12.5 H RBC 4.63 Hgb 14.1 Hct 41.6 MCV 90 MCH 30.5 MCHC 33.9 RDW 14.0 Plt Count 230 Seg Neutrophils % 80.2 H Sodium 139.0 Potassium 4.0 Chloride 105 Carbon Dioxide 26 Anion Gap 8 BUN 22 H Creatinine 0.87 Est GFR ( Amer) > 60 Glucose 205 H Calcium 9.9 Total Bilirubin 0.6 AST 28 Alkaline Phosphatase 60 Total Protein 7.3 Albumin 4.2 12/17/19 12/17/19 17:12 17:12 Troponin I 0.027 NT-Pro-B Natriuret Pep 1770 H Impressions: Chest X-Ray 12/17/19 16:52 IMPRESSION: Constellation of findings consistent with CHF exacerbation. Super imposed infectious process is not excluded. Assessment and Plan - Diagnosis (1) Hypertensive emergency Is this a current diagnosis for this admission?: Yes (2) Morbid obesity Is this a current diagnosis for this admission?: Yes (3) Coronary artery disease Qualifiers: Coronary Disease-Associated Artery/Lesion type: [place] artery [place] vs. transplanted heart: [place] heart Associated angina: angina presence unspecified Qualified Code(s): I25.10 - Atherosclerotic heart disease of [place] coronary artery without angina pectoris Is this a current diagnosis for this admission?: No (4) Uncontrolled type 2 diabetes mellitus Qualifiers: Glycemic state: with hyperglycemia Qualified Code(s): E11.65 - Type 2 diabetes mellitus with hyperglycemia Is this a current diagnosis for this admission?: Yes (5) Pulmonary edema Qualifiers: Chronicity: acute Qualified Code(s): J81.0 - Acute pulmonary edema Is this a current diagnosis for this admission?: Yes - Plan Summary Summary: 12/16/19 Continue nitro drip and add lasix. Continue other antihypertensives. admit to IMCU, serial troponins and strict I&O's - Time Time Spent with patient: 35 or more minutes Medications reviewed and adjusted accordingly: Yes Anticipated Discharge Disposition: Home with Home Health Anticipated Discharge Timeframe: within 72 hours
[2019-12-17] MEDS: METOPROLOL TARTRATE 25 MG TABLET PO SCH (23:01)
[2019-12-17] MEDS: HEPARIN SOD (PORCINE) 5,000 UNIT/ML 1 ML VIAL SUBCUT SCH (23:02)
[2019-12-17] MEDS: ATORVASTATIN CALCIUM 40 MG TABLET PO SCH (23:02)
[2019-12-17] MEDS: INSULIN LISPRO 100 UNIT/ML 3 ML VIAL SUBCUT SCH (23:02)
[2019-12-18 01:03] LABS: ANION GAP 11 (5-19); BLOOD UREA NITROGEN 23 mg/dL (7-20); CALCIUM 9.8 mg/dL (8.4-10.2); CARBON DIOXIDE 23 mmol/L (22-30); CHLORIDE 103 mmol/L (98-107); GLUCOSE 281 mg/dL (75-110)
[2019-12-18 01:11] LABS: POTASSIUM 4.1 mmol/L (3.6-5.0)
[2019-12-18 05:10] LABS: ABSOLUTE LYMPHOCYTES (AUTO) 0.6 10^3/uL (0.5-4.7); ABSOLUTE MONOCYTES (AUTO) 0.1 10^3/uL (0.1-1.4); ABSOLUTE NEUT (AUTO) 10.2 10^3/uL (1.7-8.2); BASOPHILS % (AUTO) 0.1 % (0-2); HEMATOCRIT 36.6 % (36.0-47.0); HEMOGLOBIN 12.7 g/dL (12.0-15.5); LYMPHOCYTES % (AUTO) 5.7 % (13-45); MEAN CORPUSCULAR HEMOGLOBIN 30.9 pg (27.0-33.4); MEAN CORPUSCULAR HGB CONC 34.6 g/dL (32.0-36.0); MEAN CORPUSCULAR VOLUME 89 fl (80-97); MONOCYTES % (AUTO) 1.1 % (3-13); PLATELET COUNT 203 10^3/uL (150-450); RED CELL DISTRIBUTION WIDTH 13.5 % (11.5-14.0); SEGMENTED NEUTROPHILS % (AUTO) 93.1 % (42-78); TOTAL CELLS COUNTED % (AUTO) 100 %
[2019-12-18 05:33] LABS: ANION GAP 9 (5-19); BLOOD UREA NITROGEN 24 mg/dL (7-20); CALCIUM 9.5 mg/dL (8.4-10.2); CARBON DIOXIDE 26 mmol/L (22-30); CHLORIDE 100 mmol/L (98-107); GLUCOSE 318 mg/dL (75-110); POTASSIUM 4.1 mmol/L (3.6-5.0)
[2019-12-18] MEDS: PANTOPRAZOLE SODIUM 20 MG TABLET.DR PO SCH (06:14)
[2019-12-18] MEDS: HEPARIN SOD (PORCINE) 5,000 UNIT/ML 1 ML VIAL SUBCUT SCH ×3 (06:14→22:03)
[2019-12-18] MEDS: INSULIN LISPRO 100 UNIT/ML 3 ML VIAL SUBCUT SCH ×4 (08:00→22:04)
[2019-12-18] MEDS ORDERED: HUM INSULIN NPH/REG INSULIN HM 100 UNIT/1 ML 3 ML SUBCUT SCH (08:00)
[2019-12-18] MEDS ORDERED: MAGNESIUM OXIDE 400 MG TABLET PO ONE (08:15)
--- NOTE | 2019-12-18 08:43 | EKG REPORT ---
SEVERITY:- ABNORMAL ECG - SINUS RHYTHM ABNORMAL T, CONSIDER ISCHEMIA, ANT-LAT LEADS PROLONGED QT INTERVAL : Confirmed by: Mike Carter MD 18-Dec-2019 08:42:34
--- NOTE | 2019-12-18 08:43 | EKG REPORT ---
SEVERITY:- ABNORMAL ECG - SINUS TACHYCARDIA NONSPECIFIC T ABNORMALITIES, LATERAL LEADS : Confirmed by: Mike Carter MD 18-Dec-2019 08:42:40
[2019-12-18] MEDS: METOPROLOL TARTRATE 25 MG TABLET PO SCH ×2 (09:17→22:04)
[2019-12-18] MEDS: LISINOPRIL 10 MG TABLET PO SCH (09:17)
[2019-12-18] MEDS: ASPIRIN 81 MG TABLET, ENT COATED PO SCH (09:17)
[2019-12-18] MEDS: FUROSEMIDE INJ/PF 20 MG/2 ML SDV IV SCH ×2 (09:17→22:03)
--- NOTE | 2019-12-18 11:40 | PDOC PROGRESS REPORT ---
Subjective Progress Note for:: 12/18/19 Subjective:: [id number] female admitted for CHF exacerbation previous echocardiogram shows normal EF as per Dr. Miller patient has a Takotsubo syndrome. Patient also has a history of hypertension. Patient has history of CT. At the time of my examination patient is on nitro drip. Receiving oxygen via nasal cannula. Comfortably in the bed communicating well. Consultation with Dr. Miller is requested. Patient is also on Lasix 20 mg twice daily. Reason For Visit: HEART FAILURE,ACUTE RESPIRATORY FAILURE WITH Physical Exam Vital Signs: Temp Pulse Resp BP Pulse Ox 97.8 F 82 24 H 139/77 H 97 12/18/19 09:02 12/18/19 11:00 12/18/19 04:17 12/18/19 11:00 12/18/19 08:00 Intake & Output 12/17/19 12/18/19 12/19/19 06:59 06:59 06:59 Intake Total 413 6 Output Total 1720 Balance -1307 6 Weight 107.5 kg General appearance: PRESENT: no acute distress, cooperative, well-developed Head exam: PRESENT: atraumatic Eye exam: PRESENT: PERRLA Mouth exam: PRESENT: moist, tongue midline Teeth exam: PRESENT: poor dentation Neck exam: PRESENT: carotid bruit Respiratory exam: PRESENT: crackles, decreased breath sounds Cardiovascular exam: PRESENT: RRR. ABSENT: diastolic murmur, rubs, systolic murmur GI/Abdominal exam: PRESENT: normal bowel sounds, soft. ABSENT: distended, guarding, mass, organolmegaly, rebound, tenderness Rectal exam: PRESENT: deferred Extremities exam: PRESENT: full ROM. ABSENT: calf tenderness, clubbing, pedal edema Neurological exam: PRESENT: alert, awake, oriented to person, oriented to place, oriented to time, oriented to situation, CN II-XII grossly intact. ABSENT: motor sensory deficit Psychiatric exam: PRESENT: appropriate affect, normal mood. ABSENT: homicidal ideation, suicidal ideation Results Laboratory Results: 12/18/19 04:03 12/18/19 04:03 12/17/19 12/17/19 12/17/19 17:12 17:12 22:19 WBC 12.5 H RBC 4.63 Hgb 14.1 Hct 41.6 MCV 90 MCH 30.5 MCHC 33.9 RDW 14.0 Plt Count 230 Seg Neutrophils % 80.2 H Sodium 139.0 136.8 L Potassium 4.0 4.1 Chloride 105 103 Carbon Dioxide 26 23 Anion Gap 8 11 BUN 22 H 23 H Creatinine 0.87 0.86 Est GFR ( Amer) > 60 > 60 Glucose 205 H 281 H Calcium 9.9 9.8 Magnesium Total Bilirubin 0.6 AST 28 Alkaline Phosphatase 60 Total Protein 7.3 Albumin 4.2 12/18/19 12/18/19 04:03 04:03 WBC 11.0 H RBC 4.10 Hgb 12.7 Hct 36.6 MCV 89 MCH 30.9 MCHC 34.6 RDW 13.5 Plt Count 203 Seg Neutrophils % 93.1 H Sodium 134.5 L Potassium 4.1 Chloride 100 Carbon Dioxide 26 Anion Gap 9 BUN 24 H Creatinine 0.90 Est GFR ( Amer) > 60 Glucose 318 H Calcium 9.5 Magnesium 1.5 L Total Bilirubin AST Alkaline Phosphatase Total Protein Albumin 12/17/19 12/17/19 12/17/19 17:12 17:12 22:19 CK-MB (CK-2) 2.55 Troponin I 0.027 NT-Pro-B Natriuret Pep 1770 H 12/18/19 04:03 CK-MB (CK-2) 2.66 Troponin I NT-Pro-B Natriuret Pep Assessment and Plan - Diagnosis (1) Hypertensive emergency Is this a current diagnosis for this admission?: Yes Plan: 12/18/2019-patient is on nitro drip. Latest blood pressure is 137/80. Consultati on with cardiology was requested. Plan is to resume other home medications. (2) Coronary artery disease Qualifiers: Coronary Disease-Associated Artery/Lesion type: [place] artery [place] vs. transplanted heart: [place] heart Associated angina: angina presence unspecified Qualified Code(s): I25.10 - Atherosclerotic heart disease of [place] coronary artery without angina pectoris Is this a current diagnosis for this admission?: No Plan: 12/18/2019-patient has history of coronary artery disease denies any chest pains at this time. (3) Uncontrolled type 2 diabetes mellitus Qualifiers: Glycemic state: with hyperglycemia Qualified Code(s): E11.65 - Type 2 diabetes mellitus with hyperglycemia Is this a current diagnosis for this admission?: Yes Plan: 12/18/2019-latest blood sugar is 458. Patient is on insulin sliding scale, 70/30 insulin 25 units twice daily. Diet exercise weight loss lifestyle modifications discussed with the patient. Hemoglobin A1c is 10.3. (4) Morbid obesity Is this a current diagnosis for this admission?: No Plan: 12/18/2019-BMI is more than 40 diet exercise weight loss lifestyle modifications discussed with the patient. - Time Anticipated Discharge Disposition: Home, Self Care Anticipated Discharge Timeframe: within 48 hours
--- NOTE | 2019-12-18 12:51 | RADIOLOGY REPORT (SQ) ---
EXAM DESCRIPTION: CHEST SINGLE VIEW IMAGES COMPLETED DATE/TIME: 12/18/2019 10:39 am REASON FOR STUDY: chf COMPARISON: 12/17/2019 EXAM PARAMETERS: NUMBER OF VIEWS: One view. TECHNIQUE: Single frontal radiographic view of the chest acquired. RADIATION DOSE: NA LIMITATIONS: None. FINDINGS: LUNGS AND PLEURA: Interval resolution of the CHF changes. Focal airspace disease in the right infrahilar region. The left lung is clear. No pneumothorax or pleural effusion. MEDIASTINUM AND HILAR STRUCTURES: No masses. Contour normal. HEART AND VASCULAR STRUCTURES: Cardiomegaly. BONES: No acute findings. HARDWARE: None in the chest. OTHER: No other significant finding. IMPRESSION: 1. Interval resolution of the CHF changes since the prior examination dated 12/17/2019. 2. Focal area of airspace disease suggested in the right infrahilar region. 3. Cardiomegaly. TECHNICAL DOCUMENTATION: JOB ID: [id number] 2010 [employer]- All Rights Reserved Reading location - IP/workstation name: [email or web address]
[2019-12-18] MEDS: HUM INSULIN NPH/REG INSULIN HM 100 UNIT/1 ML 3 ML SUBCUT SCH (17:40)
--- NOTE | 2019-12-18 20:09 | PDOC CONSULTATION ---
Consultation-Blank Consultation: CARDIOLOGY CONSULTATION by Dr. Chetan Christian on 12/18/2019. Patient seen at 4 PM. 60 minutes spent with patient more than 50% of time spent in direct patient care. CONSULT REQUESTING PHYSICIAN: gael Horowitz hospitalist physician group REASON FOR CONSULTATION: Uncontrolled hypertension, chest pain and heart failure. HISTORY OF PRESENT ILLNESS: Patient is 65-year-old female with known history of hypertension, history of diabetes mellitus, and prior history of CVA who states since about a month is been having progressively increasing shortness of breath with episodes of PND and orthopnea. She also thought it was her asthma she since she would get up at night being short of breath and this will subside in a while after she sat up. She thought it was a bronchial asthma since she does have a history of asthma also. She also complains of chest pain which is like a tightness in front of the chest. The patient was brought to the emergency room where she was found to have uncontrolled blood pressure with a systolic blood pressure of 203 and diastolic in the 130s. She was started on IV nitroglycerin and now feels better. She was also found to be in heart failure and initially was treated with BiPAP. At present she has no chest pain or discomfort. There is no PND orthopnea. Her blood pressure is well controlled at present. She states at home she ran out of lisinopril about 6 weeks ago. She in June 2019 was admitted with slurred speech and gait imbalance and was found to have a CVA and still has some degree of weakness in the right lower extremity. Her speech is returned to normal. She denies any fever chills or Reiger's. There is no cough altered taste sensation or symptoms suspicious for COVID infection. She denies any palpitations or syncope. There is no leg edema. Past Medical History Cardiac Medical History: Reports: Myocardial Infarction - 2011, Hyperlipidema, Hypertension - taking Lisinopril but out for 6 weeks, seen at [place]. In 2011 the patient was admitted with chest pain and had a myocardial infarction and was transferred to [facility] where she had a cardiac catheterization which showed normal coronaries and was diagnosed as Takotsubo cardiomyopathy. She again in 2017 had chest pain abnormal stress test and was transferred to [facility] in [place]([facility]] was found to have only a 30% blockage of the left anterior descending artery. Her echocardiogram showed normal ejection fraction in 2018. Pulmonary Medical History: Reports: Asthma, Bronchitis, Pneumonia. I am not sure if the patient does have bronchial asthma or if she is confusing her cardiac asthma with bronchial asthma. She does have symptoms of sleep apnea but has not had a sleep study done. Endocrine Medical History: Reports: Diabetes Mellitus Type 2 GI Medical History: Reports: Diverticulitis Musculoskeltal Medical History: Reports: Arthritis Psychiatric Medical History: Reports: Depression Hematology: Denies: Anemia Past Surgical History Past Surgical History: Reports: Cholecystectomy, Other - ERCP Social History Information Source: Patient, [facility], [facility] Records Lives with: Alone Smoking Status: Unknown if Ever Smoked Electronic Cigarette use?: No Frequency of Alcohol Use: Rare Hx Recreational Drug Use: No Drugs: None Hx Prescription Drug Abuse: No - Advance Directive Resuscitation Status: Full Code. The patient's daughter is a surrogate healthcare decision maker Family History Family History: Arthritis, CAD, Hyperlipidemia, Hypertension, Malignancy, Thyroid Disfunction Parental Family History Reviewed: Yes Children Family History Reviewed: Yes Sibling(s) Family History Reviewed.: Yes Medication/Allergy Home Medications: Amlodipine Besylate [Norvasc 5 mg Tablet] 5 mg PO DAILY #30 tablet 07/04/19 Aspirin [Ecotrin 81 mg EC Tablet] 81 mg PO DAILY #30 tabec 07/04/19 Atorvastatin Calcium [Lipitor 40 mg Tablet] 40 mg PO QHS #30 tablet 07/04/19 Clopidogrel Bisulfate [Plavix 75 mg Tablet] 75 mg PO DAILY 21 Days #21 tablet 07/04/19 Lisinopril [Prinivil] 20 mg PO DAILY #30 tablet 07/04/19 Insulin NPH Human Isophane [Novolin N Flexpen] 12 unit SQ BID 12/18/19 Insulin Regular, Human [Novolin R] 8 unit SQ TID 12/18/19 Allergies/Adverse Reactions: coconut Allergy (Verified 12/17/19 17:04) codeine [Codeine] Allergy (Verified 12/17/19 17:04) egg [Egg] Allergy (Verified 12/17/19 17:04) milk [Milk] Allergy (Verified 12/17/19 17:04) Sulfa (Sulfonamide Antibiotics) Allergy (Verified 12/17/19 17:04) tuna oil Allergy (Verified 12/17/19 17:04) adhesive tape Adverse Reaction (Verified 12/17/19 17:04). Current Medications Generic Name Dose Route Start Last Admin Trade Name Freq PRN Reason Stop Dose Admin Acetaminophen 650 mg 12/17/19 19:08 Tylenol 325 Mg Tablet PO 01/16/20 19:07 Q4HP PRN pain or temp greater than 101F Al Hydrox/Mg Hydrox/Simethicone 30 ml 12/17/19 19:08 Maalox Plus Susp 30 Udcup PO 01/16/20 19:07 Q4HP PRN HEARTBURN Albuterol 2 puff 12/17/19 17:00 Ventolin Hfa 8 Gm Mdi (1 Mdi/Er Disp) IH 01/16/20 16:59 NOW TAVON Albuterol/Ipratropium 3 ml 12/17/19 19:18 Duoneb 3 Ml Ampul NEB 01/16/20 19:17 RTQ4HP PRN SHORTNESS OF BREATH Amlodipine Besylate 5 mg 12/19/19 10:00 Norvasc 5 Mg Tablet PO 01/18/20 09:59 DAILY TAVON Aspirin 81 mg 12/18/19 10:00 12/18/19 09:17 Ecotrin 81 Mg Ec Tablet PO 01/17/20 09:59 81 mg DAILY TAVON Administration Atorvastatin Calcium 40 mg 12/17/19 22:00 12/17/19 23:02 Lipitor 40 Mg Tablet PO 01/16/20 21:59 40 mg QHS TAVON Administration Clopidogrel Bisulfate 75 mg 12/19/19 10:00 Plavix 75 Mg Tablet PO 01/18/20 09:59 DAILY TAVON Dextrose 12.5 gm 12/17/19 19:19 Dextrose Inj 50% Syringe (25 Gm/50 Ml) IV 01/16/20 19:18 PRN PRN FOR BG 50-69 IN ALERT PATIENT Protocol Dextrose 25 gm 12/17/19 19:19 Dextrose Inj 50% Syringe (25 Gm/50 Ml) IV 01/16/20 19:18 PRN PRN PER PROTOCOL Protocol Furosemide 20 mg 12/18/19 10:00 12/18/19 09:17 Lasix Inj/Pf 20 Mg/2 Ml Sdv IV 01/17/20 09:59 20 mg Q12 TAVON Administration Glucagon 1 mg 12/17/19 19:19 Glucagen Inj 1 Mg Vial IM 01/16/20 19:18 PRN PRN Evaluate for BG < 70 Protocol Glucose 15 gm 12/17/19 19:19 Glutose 40% Gel 15 Gm Tube PO 01/16/20 19:18 PRN PRN FOR BG 50-69 IN ALERT PATIENT Protocol Glucose 30 gm 12/17/19 19:19 Glutose 40% Gel 15 Gm Tube PO 01/16/20 19:18 PRN PRN FOR BG < 50 IN ALERT PATIENT Protocol Heparin Sodium (Porcine) 5,000 unit 12/17/19 22:00 12/18/19 15:03 Heparin Inj 5,000 Units/Ml 1 Ml Vial SUBCUT 01/16/20 21:59 5,000 unit Q8 TAVON Administration Nitroglycerin/Dextrose 50 mg in 250 mls @ 0 mls/hr 12/17/19 19:08 Ntg Rtu 50 Mg/D5w 250 Ml Iv Premix Bottle IV 01/16/20 19:07 CONTINUOUS PRN THIS MED IS NOT "PRN" Protocol Titrate Insulin Human Isoph/Insulin Regular 25 unit 12/18/19 16:00 12/18/19 17:40 Insulin Inj 70-30 (100 Unit/1 Ml) 3 Ml Vial SUBCUT 01/17/20 15:59 25 unit BIDACBS TAVON Administration Insulin Human Lispro 0 - 16 unit 12/17/19 22:00 12/18/19 17:40 Humalog Insulin 100 Unit/1 Ml 3 Ml Vial SUBCUT 01/16/20 21:59 6 unit ACHS TAVON Administration Protocol Lisinopril 10 mg 12/18/19 10:00 12/18/19 09:17 Prinivil 10 Mg Tablet PO 01/17/20 09:59 10 mg DAILY TAVON Administration Magnesium Hydroxide 30 ml 12/17/19 19:08 Milk Of Magnesia 30 Ml Udcup PO 01/16/20 19:07 HSP PRN FOR CONSTIPATION Metoprolol Tartrate 12.5 mg 12/17/19 22:00 12/18/19 09:17 Lopressor 25 Mg Tablet PO 01/16/20 21:59 12.5 mg Q12 TAVON Administration Nitroglycerin 1 tab 12/17/19 19:08 Nitrostat 0.4 Mg (1/150 Gr) Tabs 25/Bottle SL 01/16/20 19:07 Q5MP PRN FOR CHEST PAIN Pantoprazole Sodium 20 mg 12/18/19 06:00 12/18/19 06:[address] Tablet PO 01/17/20 05:59 20 mg Q6AM TAVON Administration Promethazine HCl 12.5 mg 12/17/19 19:08 Phenergan Inj 25 Mg/1 Ml Vial IV 01/16/20 19:07 Q4HP PRN FOR NAUSEA/VOMITING Sodium Chloride 2.5 ml 12/17/19 22:00 12/18/19 15:08 Saline Flush 2.5 Ml Monoject Prefil Syrin IV 01/16/20 21:59 2.5 ml Q8 TAVON Administration Discontinued Medications Generic Name Dose Route Start Last Admin Trade Name Freq PRN Reason Stop Dose Admin Aspirin 325 mg 12/17/19 17:28 12/17/19 17:31 Aspirin 325 Mg Tablet PO 12/17/19 17:29 325 mg NOW ONE Administration Furosemide 20 mg 12/17/19 18:17 12/17/19 19:55 Lasix Inj/Pf 20 Mg/2 Ml Sdv IV 12/17/19 18:18 20 mg NOW ONE Administration Furosemide 20 mg 12/17/19 18:56 12/17/19 19:55 Lasix Inj/Pf 20 Mg/2 Ml Sdv IV 12/17/19 18:57 20 mg NOW ONE Administration Nitroglycerin/Dextrose 50 mg in 250 mls @ 0 mls/hr 12/17/19 17:28 12/18/19 07:20 Ntg Rtu 50 Mg/D5w 250 Ml Iv Premix Bottle IV 01/16/20 17:27 10 mcg/min CONTINUOUS PRN 3 mls/hr THIS MED IS NOT "PRN" Titration Protocol Titrate Insulin Human Isoph/Insulin Regular 20 unit 12/18/19 08:00 12/18/19 08:01 Insulin Inj 70-30 (100 Unit/1 Ml) 3 Ml Vial SUBCUT 01/17/20 07:59 20 unit BIDACBS TAVON Administration Magnesium Oxide 800 mg 12/18/19 08:15 12/18/19 09:17 Mag-Ox 400 Mg Tablet PO 12/18/19 08:16 800 mg NOW ONE Administration Methylprednisolone Sodium Succinate 125 mg 12/17/19 16:53 12/17/19 17:14 Solu-Medrol Inj/Pf 125 Mg/2 Ml Sdv IV 12/17/19 16:54 125 mg NOW ONE Administration Review of Systems: Constitutional: Denies any fever chills or rigors. Complains of generalized fatigue and weakness. HEAD: Denies headaches or head injury. EYES: No history of amblyopia diplopia no history of amaurosis fugax. NOSE: There is no nosebleeds. There is no loss of smell sensation. There is no hayfever. EARS: There is no tinnitus. There is no vertigo. There is no hearing loss. MOUTH: There is no altered taste sensation. There is no bleeding from the gums. THROAT: There is no redness of the oropharynx. There is no odynophagia or dysphagia. SKIN: There is no pruritus. There is no bluish discoloration of the skin. There is no psoriasis. LUNGS: History of bronchial asthma. Although the patient states that when she gets up at night with shortness of breath there is no wheezing. This probably is cardiac asthma and not bronchial asthma. She has a prior history of pneumonia. No recent cough or sputum production. She has symptoms suggestive of sleep apnea. No hemoptysis. No pleuritic chest pain. Heart: Complains of chest pain or shortness of breath. Patient clearly in heart failure systolic versus systolic and diastolic combined heart failure. This is due to uncontrolled hypertension. Lack of compliance due to the patient not taking her blood pressure medicines. She has PND orthopnea episodes. No palpitations or syncope. ENDOCRINE: No history of polyps or polyuria. No history of heat or cold intolerance. RENAL: No history of chronic kidney disease. No symptoms of UTI. METABOLIC: History of obesity present. History of hyperlipidemia present. WHEEL TUNER: Prior history of CVA. No recurrence of CVA symptoms. PSYCHIATRIC: No history of suicidal ideation or homicidal ideation. History of depression well-controlled on medication. VASCULAR: No history of DVT. No history of calf or buttock claudication. MUSCULOSKELETAL: Denies arthritis or collagen vascular disease. PHYSICAL EXAMINATION: The patient is morbidly obese. At present in no acute distress Selected Entries 12/17/19 12/17/19 12/18/19 16:35 16:43 16:12 Temperature 97.5 F 97.9 F Temperature Oral Source Pulse Rate 127 H 75 Respiratory 22 H 16 Rate Blood Pressure 205/123 H 133/64 H Blood Pressure 150 87 Mean BP Location Right Arm BP Position Supine O2 Sat by Pulse 94 99 Oximetry Oxygen Flow 2.50 Rate Oxygen Delivery Room Air Nasal Cannula Method HEAD: Is atraumatic and normocephalic. EYES: Pupils are equal round regular reactive to light accommodation. ENT: Negative.NECK: Is supple. There is no JVD. Carotids are equal there is no bruit. There is no goiter. There is no lymphadenopathy. There is no accessory muscles of respiration use. LUNGS: Clear to auscultation percussion, without any rhonchi rales or wheezing. There is no chest wall tenderness. HEART: S1-S2 is heard S1 and S2 of normal intensity. There is no S3 gallop there is no S4 gallop there is a systolic murmur in the left sternal border and the apex without radiation. There is no rub. ABDOMEN: Is mildly obese, nontender. There is no hepatosplenomegaly. Bowel sounds well heard. There is no tender areas of masses. EXTREMITIES: Femorals well felt. There is no femoral bruits. Leg pulses are well felt. There is no pedal edema. There is no DVT or cellulitis. There is no calf tenderness. There is no cyanosis or clubbing. WHEEL TUNER: Patient is awake alert oriented x3 with no focal deficits. PSYCHIATRIC: The patient judgment and insight are intact.. Her affect is clarissa Labs- Entire Visit 12/17/19 12/17/19 12/17/19 17:12 17:12 17:12 WBC 12.5 H RBC 4.63 Hgb 14.1 Hct 41.6 MCV 90 MCH 30.5 MCHC 33.9 RDW 14.0 Plt Count 230 Lymph % (Auto) 12.8 L Carter % (Auto) 5.0 Eos % (Auto) 1.4 Baso % (Auto) 0.6 Absolute Neuts (auto) 10.0 H Absolute Lymphs (auto) 1.6 Absolute Monos (auto) 0.6 Absolute Eos (auto) 0.2 Absolute Basos (auto) 0.1 Seg Neutrophils % 80.2 H Sodium 139.0 Potassium 4.0 Chloride 105 Carbon Dioxide 26 Anion Gap 8 BUN 22 H Creatinine 0.87 Est GFR ( Amer) > 60 Est GFR (MDRD) Non-Af > 60 Glucose 205 H POC Glucose Hemoglobin A1c % Calcium 9.9 Magnesium Total Bilirubin 0.6 Direct Bilirubin 0.3 Neonat Total Bilirubin Not Reportable Neonat Direct Bilirubin Not Reportable Neonat Indirect Bili Not Reportable AST 28 ALT 24 Alkaline Phosphatase 60 CK-MB (CK-2) Troponin I 0.027 NT-Pro-B Natriuret Pep Total Protein 7.3 Albumin 4.2 12/17/19 12/17/19 12/17/19 17:12 22:19 22:19 WBC RBC Hgb Hct MCV MCH MCHC RDW Plt Count Lymph % (Auto) Carter % (Auto) Eos % (Auto) Baso % (Auto) Absolute Neuts (auto) Absolute Lymphs (auto) Absolute Monos (auto) Absolute Eos (auto) Absolute Basos (auto) Seg Neutrophils % Sodium Potassium Chloride Carbon Dioxide Anion Gap BUN Creatinine Est GFR ( Amer) Est GFR (MDRD) Non-Af Glucose POC Glucose 250 H Hemoglobin A1c % Calcium Magnesium Total Bilirubin Direct Bilirubin Neonat Total Bilirubin Neonat Direct Bilirubin Neonat Indirect Bili AST ALT Alkaline Phosphatase CK-MB (CK-2) 2.55 Troponin I NT-Pro-B Natriuret Pep 1770 H Total Protein Albumin 12/17/19 12/18/19 12/18/19 22:19 04:03 04:03 WBC 11.0 H RBC 4.10 Hgb 12.7 Hct 36.6 MCV 89 MCH 30.9 MCHC 34.6 RDW 13.5 Plt Count 203 Lymph % (Auto) 5.7 L Carter % (Auto) 1.1 L Eos % (Auto) 0.0 Baso % (Auto) 0.1 Absolute Neuts (auto) 10.2 H Absolute Lymphs (auto) 0.6 Absolute Monos (auto) 0.1 Absolute Eos (auto) 0.0 Absolute Basos (auto) 0.0 Seg Neutrophils % 93.1 H Sodium 136.8 L 134.5 L Potassium 4.1 4.1 Chloride 103 100 Carbon Dioxide 23 26 Anion Gap 11 9 BUN 23 H 24 H Creatinine 0.86 0.90 Est GFR ( Amer) > 60 > 60 Est GFR (MDRD) Non-Af > 60 > 60 Glucose 281 H 318 H POC Glucose Hemoglobin A1c % Calcium 9.8 9.5 Magnesium 1.5 L Total Bilirubin Direct Bilirubin Neonat Total Bilirubin Neonat Direct Bilirubin Neonat Indirect Bili AST ALT Alkaline Phosphatase CK-MB (CK-2) Troponin I NT-Pro-B Natriuret Pep Total Protein Albumin 12/18/19 12/18/19 12/18/19 04:03 04:03 07:40 WBC RBC Hgb Hct MCV MCH MCHC RDW Plt Count Lymph % (Auto) Carter % (Auto) Eos % (Auto) Baso % (Auto) Absolute Neuts (auto) Absolute Lymphs (auto) Absolute Monos (auto) Absolute Eos (auto) Absolute Basos (auto) Seg Neutrophils % Sodium Potassium Chloride Carbon Dioxide Anion Gap BUN Creatinine Est GFR ( Amer) Est GFR (MDRD) Non-Af Glucose POC Glucose 354 H Hemoglobin A1c % 10.3 H Calcium Magnesium Total Bilirubin Direct Bilirubin Neonat Total Bilirubin Neonat Direct Bilirubin Neonat Indirect Bili AST ALT Alkaline Phosphatase CK-MB (CK-2) 2.66 Troponin I NT-Pro-B Natriuret Pep Total Protein Albumin 12/18/19 12/18/19 11:17 16:10 WBC RBC Hgb Hct MCV MCH MCHC RDW Plt Count Lymph % (Auto) Carter % (Auto) Eos % (Auto) Baso % (Auto) Absolute Neuts (auto) Absolute Lymphs (auto) Absolute Monos (auto) Absolute Eos (auto) Absolute Basos (auto) Seg Neutrophils % Sodium Potassium Chloride Carbon Dioxide Anion Gap BUN Creatinine Est GFR ( Amer) Est GFR (MDRD) Non-Af Glucose POC Glucose 428 H* 209 H Hemoglobin A1c % Calcium Magnesium Total Bilirubin Direct Bilirubin Neonat Total Bilirubin Neonat Direct Bilirubin Neonat Indirect Bili AST ALT Alkaline Phosphatase CK-MB (CK-2) Troponin I NT-Pro-B Natriuret Pep Total Protein Albumin Chest X-Ray 12/17/19 16:52 IMPRESSION: Constellation of findings consistent with CHF exacerbation. Superimposed infectious process is not excluded. Chest X-Ray 12/18/19 07:00 IMPRESSION: 1. Interval resolution of the CHF changes since the prior examination dated 12/17/2019. 2. Focal area of airspace disease suggested in the right infrahilar region. 3. Cardiomegaly. The patient's initial EKG showed sinus tachycardia diffuse nonspecific ST-T changes minor. The patient subsequent EKG shows sinus rhythm with anterolateral T inversion consistent with ischemia. IMPRESSION/RECOMMENDATION: 1. Acute heart failure most likely a combination of systolic and diastolic heart failure secondary to uncontrolled hypertension. Would recommend checking an echo for LV ejection fraction estimation. Would recommend increase the beta- franky to 25 mg p.o. every 12 hours and continue the patient's amlodipine and lisinopril. We will stop the patient's IV nitroglycerin and switch to topical nitrates. 2. Uncontrolled hypertension on admission. At present much blood pressure much improved. 3. Diabetes mellitus: Continue current antidiabetic medication. 4. Coronary artery disease, patient had mild LAD disease by catheter 2018. But the patient has new EKG changes. Hence would need further ischemic work-up. 5. Abnormal EKG: EKG consistent with anterolateral ischemia. 6.? History of bronchial asthma. [The question is whether this is bronchial asthma versus cardiac asthma] 7. History of CVA: At present no recurrence. Medications reviewed. Medication adjusted. Medical regimen and management plan discussed with attending provider on the case. Medical decision making is of high complexity. 60 minutes spent as patient more than 50% of time spent in direct patient care. Will follow 8. Hyperlipidemia: Continue statins. l.
[2019-12-18] MEDS: ATORVASTATIN CALCIUM 40 MG TABLET PO SCH (22:03)
[2019-12-19] MEDS: HEPARIN SOD (PORCINE) 5,000 UNIT/ML 1 ML VIAL SUBCUT SCH ×3 (05:31→21:34)
[2019-12-19] MEDS: PANTOPRAZOLE SODIUM 20 MG TABLET.DR PO SCH (05:31)
[2019-12-19 06:51] LABS: ABSOLUTE BASOPHILS # (AUTO) 0.1 10^3/uL (0.0-0.2); ABSOLUTE EOSINOPHILS # (AUTO) 0.1 10^3/uL (0.0-0.6); ABSOLUTE LYMPHOCYTES (AUTO) 3.2 10^3/uL (0.5-4.7); ABSOLUTE NEUT (AUTO) 8.6 10^3/uL (1.7-8.2); EOSINOPHILS % (AUTO) 0.8 % (0-6); HEMATOCRIT 38.4 % (36.0-47.0); HEMOGLOBIN 12.9 g/dL (12.0-15.5); LYMPHOCYTES % (AUTO) 24.6 % (13-45); MEAN CORPUSCULAR HEMOGLOBIN 30.2 pg (27.0-33.4); MEAN CORPUSCULAR HGB CONC 33.6 g/dL (32.0-36.0); MEAN CORPUSCULAR VOLUME 90 fl (80-97); MONOCYTES % (AUTO) 7.4 % (3-13); PLATELET COUNT 213 10^3/uL (150-450); RED BLOOD COUNT 4.28 10^6/uL (3.72-5.28); RED CELL DISTRIBUTION WIDTH 13.5 % (11.5-14.0); SEGMENTED NEUTROPHILS % (AUTO) 66.2 % (42-78); TOTAL CELLS COUNTED % (AUTO) 100 %
[2019-12-19 07:11] LABS: ALBUMIN 3.6 g/dL (3.5-5.0); ALKALINE PHOSPHATASE 47 U/L (38-126); ANION GAP 7 (5-19); ASPARTATE AMINO TRANSFERASE 19 U/L (14-36); BILIRUBIN,DIRECT 0.3 mg/dL (0.0-0.4); BILIRUBIN,TOTAL 0.7 mg/dL (0.2-1.3); BLOOD UREA NITROGEN 37 mg/dL (7-20); CALCIUM 9.6 mg/dL (8.4-10.2); CARBON DIOXIDE 31 mmol/L (22-30); CHLORIDE 100 mmol/L (98-107); GLUCOSE 114 mg/dL (75-110); POTASSIUM 4.2 mmol/L (3.6-5.0); TOTAL PROTEIN 6.3 g/dL (6.3-8.2)
[2019-12-19] MEDS: INSULIN LISPRO 100 UNIT/ML 3 ML VIAL SUBCUT SCH ×4 (08:41→21:34)
[2019-12-19] MEDS: HUM INSULIN NPH/REG INSULIN HM 100 UNIT/1 ML 3 ML SUBCUT SCH ×2 (08:41→17:05)
[2019-12-19] MEDS: CLOPIDOGREL BISULFATE 75 MG TABLET PO SCH (10:40)
[2019-12-19] MEDS: ASPIRIN 81 MG TABLET, ENT COATED PO SCH (10:40)
[2019-12-19] MEDS: FUROSEMIDE INJ/PF 20 MG/2 ML SDV IV SCH (10:40)
[2019-12-19] MEDS: LISINOPRIL 10 MG TABLET PO SCH (10:40)
[2019-12-19] MEDS: AMLODIPINE BESYLATE 5 MG TABLET PO SCH (10:41)
[2019-12-19] MEDS: METOPROLOL TARTRATE 25 MG TABLET PO SCH ×2 (10:41→21:35)
--- NOTE | 2019-12-19 13:06 | PDOC PROGRESS REPORT ---
Subjective Progress Note for:: 12/19/19 Subjective:: 12/18/19 64-year-old female admitted for CHF exacerbation previous echocardiogram shows normal EF as per Dr. Miller patient has a Takotsubo syndrome. Patient also has a history of hypertension. Patient has history of NH. At the time of my examination patient is on nitro drip. Receiving oxygen via nasal cannula. Comfortably in the bed communicating well. Consultation with Dr. Miller is requested. Patient is also on Lasix 20 mg twice daily. 12/19/2019-no acute events in the last 24 hours. Afebrile. Patient is scheduled for the stress test tomorrow by Dr. Miller. Reason For Visit: HEART FAILURE,ACUTE RESPIRATORY FAILURE WITH Physical Exam Vital Signs: Temp Pulse Resp BP Pulse Ox 97.9 F 67 20 100/50 L 99 12/19/19 09:45 12/19/19 07:50 12/19/19 07:50 12/19/19 07:50 12/19/19 07:50 Intake & Output 12/18/19 12/19/19 12/20/19 06:59 06:59 06:59 Intake Total 413 1228 Output Total 1720 3000 Balance -1307 -1772 Weight 107.5 kg 107.6 kg General appearance: PRESENT: no acute distress, obese Head exam: PRESENT: atraumatic Eye exam: PRESENT: PERRLA Mouth exam: PRESENT: moist, tongue midline Neck exam: ABSENT: carotid bruit, JVD, lymphadenopathy, thyromegaly Respiratory exam: PRESENT: clear to auscultation alla. ABSENT: rales, rhonchi, wheezes Cardiovascular exam: PRESENT: RRR. ABSENT: diastolic murmur, rubs, systolic murmur GI/Abdominal exam: PRESENT: normal bowel sounds, soft. ABSENT: distended, guarding, mass, organolmegaly, rebound, tenderness Rectal exam: PRESENT: deferred Extremities exam: PRESENT: full ROM. ABSENT: calf tenderness, clubbing, pedal edema Neurological exam: PRESENT: alert, awake, oriented to person, oriented to place, oriented to time, oriented to situation, CN II-XII grossly intact. ABSENT: motor sensory deficit Psychiatric exam: PRESENT: appropriate affect, normal mood. ABSENT: homicidal ideation, suicidal ideation Results Laboratory Results: 12/19/19 06:16 12/19/19 06:16 12/19/19 12/19/19 06:16 06:16 WBC 13.0 H RBC 4.28 Hgb 12.9 Hct 38.4 MCV 90 MCH 30.2 MCHC 33.6 RDW 13.5 Plt Count 213 Seg Neutrophils % 66.2 Sodium 137.6 Potassium 4.2 Chloride 100 Carbon Dioxide 31 H Anion Gap 7 BUN 37 H Creatinine 1.33 H Est GFR ( Amer) 49 L Glucose 114 H Calcium 9.6 Magnesium 1.9 Total Bilirubin 0.7 AST 19 Alkaline Phosphatase 47 Total Protein 6.3 Albumin 3.6 12/17/19 12/17/19 12/17/19 17:12 17:12 22:19 CK-MB (CK-2) 2.55 Troponin I 0.027 NT-Pro-B Natriuret Pep 1770 H 12/18/19 12/19/19 04:03 06:16 CK-MB (CK-2) 2.66 Troponin I NT-Pro-B Natriuret Pep 1770 H Impressions: Chest X-Ray 12/18/19 07:00 IMPRESSION: 1. Interval resolution of the CHF changes since the prior examination dated 12/17/2019. 2. Focal area of airspace disease suggested in the right infrahilar region. 3. Cardiomegaly. Assessment and Plan - Diagnosis (1) Hypertensive emergency Is this a current diagnosis for this admission?: Yes Plan: 12/18/2019-patient is on nitro drip. Latest blood pressure is 137/80. Consultation with cardiology was requested. Plan is to resume other home medications. 12/19/2019-blood pressure today is 120/74. Blood pressure is stable. Off the nitro drip. And is to continue amlodipine, lisinopril, Lasix 20 mg p.o. twice a day. (2) Coronary artery disease Qualifiers: Coronary Disease-Associated Artery/Lesion type: [place] artery [place] vs. transplanted heart: [place] heart Associated angina: angina presence unspecif ied Qualified Code(s): I25.10 - Atherosclerotic heart disease of [place] c oronary artery without angina pectoris Is this a current diagnosis for this admission?: No Plan: 12/18/2019-patient has history of coronary artery disease denies any chest pains at this time. (3) Uncontrolled type 2 diabetes mellitus Qualifiers: Glycemic state: with hyperglycemia Qualified Code(s): E11.65 - Type 2 diabetes mellitus with hyperglycemia Is this a current diagnosis for this admission?: Yes Plan: 12/18/2019-latest blood sugar is 458. Patient is on insulin sliding scale, 70/30 insulin 25 units twice daily. Diet exercise weight loss lifestyle modifications discussed with the patient. Hemoglobin A1c is 10.3. 12/19/2019-patient has history of type 2 diabetes mellitus noncompliant with medications at home. Latest blood sugar is 132. Hemoglobin A1c is 10.3. Compliance with medication was advised. To continue the present management at this time. (4) Morbid obesity Is this a current diagnosis for this admission?: Yes Plan: 12/18/2019-BMI is more than 40 diet exercise weight loss lifestyle modifications discussed with the patient. - Plan Summary Summary: 12/16/19 Continue nitro drip and add lasix. Continue other antihypertensives. admit to IMCU, serial troponins and strict I&O's - Time Anticipated Discharge Disposition: Home, Self Care Anticipated Discharge Timeframe: within 48 hours
[2019-12-19] MEDS ORDERED: FUROSEMIDE 20 MG TABLET PO SCH (18:00)
--- NOTE | 2019-12-19 20:12 | XCELERA REPORT ---
[address] [address] Transthoracic Echocardiogram Report Name: RUTHIE CARDENAS Age: 64 yrs Gender: Female : 1955 Patient Status: Inpatient Patient Location: [address] [place], [place] [address]A Study Date: 12/19/2019 08:29 AM Height: 64 in Weight: 236 lb BSA: 2.1 m2 Procedure: A two-dimensional transthoracic echocardiogram with color flow and Doppler was performed. Study Quality: Fair. Reason For Study: chf History: CHF. Ordering Physician: DENA HOLLINS Performed By: Oliva Silva Interpretation Summary The left ventricle is mildly dilated. There is normal left ventricular wall thickness. LV EF is 25% to 30% Left ventricular systolic function is severely reduced. Doppler measurements suggest impaired left ventricular relaxation, which is associated with grade I/IV or mild diastolic dysfunction There is severe global hypokinesis of the left ventricle. There is no thrombus. No ASD,VSD,or PFO seen. The right ventricle is normal in size and function. The left atrium is mildly dilated. There is no evidence of mitral valve prolapse. There is no vegetation seen on the mitral valve. There is no mitral valve stenosis. There is a moderate amount of mitral regurgitation There is no aortic valvular vegetation. There is no aortic valve stenosis No aortic regurgitation is present. There is no tricuspid stenosis. There is a mild amount of tricuspid regurgitation There is mild pulmonary hypertension by echo RVSP is 40 to 45 mm of Hg , with RA mean of 10 to 15. There is no pulmonic valvular stenosis. The inferior vena cava appeared normal and decreased < 50% with respiration (RAP 10-15 mmHg) There is no pericardial effusion. MMode/2D Measurements & Calculations RVDd: 2.4 cm LVIDd: 5.7 cm FS: 26.7 % Ao root diam: 2.7 cm IVSd: 1.1 cm LVIDs: 4.2 cm EDV(Teich): LVPWd: 0.97 cm 161.7 ml Ao root area: ESV(Teich): 78.4 ml5.6 cm2 EF(Teich): 51.5 % EDV(MOD-sp4): SV(MOD-sp4): 92.9 ml 22.5 ml ESV(MOD-sp4): 70.4 ml EF(MOD-sp4): 24.2 % Doppler Measurements & Calculations Ao V2 max: LV V1 max PG: MR max rickey: PA V2 max: 119.7 cm/sec 3.3 mmHg 503.4 cm/sec 56.0 cm/sec Ao max P.7 mmHg LV V1 max: MR max PG: PA max P.5 cm/sec 101.7 mmHg 1.3 mmHg TR max rickey: 273.1 cm/sec TR max P.8 mmHg Left Ventricle The left ventricle is mildly dilated. There is normal left ventricular wall thickness. LV EF is 25% to 30%. Left ventricular systolic function is severely reduced. Doppler measurements suggest impaired left ventricular relaxation, which is associated with grade I/IV or mild diastolic dysfunction. There is severe global hypokinesis of the left ventricle. There is no thrombus. No ASD,VSD,or PFO seen. Right Ventricle The right ventricle is normal in size and function. Atria The right atrium is normal. The left atrium is mildly dilated. Mitral Valve There is no evidence of mitral valve prolapse. There is no vegetation seen on the mitral valve. There is no mitral valve stenosis. There is a moderate amount of mitral regurgitation. Aortic Valve There is no aortic valvular vegetation. There is no aortic valve stenosis. There is no LVOT obstruction. No aortic regurgitation is present. Tricuspid Valve There is no tricuspid stenosis. There is a mild amount of tricuspid regurgitation. There is mild pulmonary hypertension by echo. RVSP is 40 to 45 mm of Hg , with RA mean of 10 to 15. Pulmonic Valve There is no pulmonic valvular stenosis. There is no pulmonic valvular regurgitation. Great Vessels The aortic root is normal size. The inferior vena cava appeared normal and decreased < 50% with respiration (RAP 10-15 mmHg). Effusions There is no pericardial effusion. : DENA HOLLINS Lakshmi
--- NOTE | 2019-12-19 20:47 | Progress Note ---
Provider Note Provider Note: CARDIOLOGY PROGRESS NOTE by Dr. Erin Zamora on 12/19/2019. SUBJECTIVE: The patient denies any chest pain discomfort. There is no shortness of breath. There is no PND orthopnea. There is no arrhythmias seen on the monitor. There is no recurrence of TIA CVA. Note that the patient is BUN/creatinine have worsened and the patient GFR is gone down from greater than 60-49. Whether this is due to overdiuresis or whether this is due to renal artery stenosis since the patient did receive lisinopril and also on admission the patient had uncontrolled hypertension and heart failure. Hence we will stop the patient's Lasix and lisinopril and gently hydrate the patient. The patient's echocardiogram came and shows his LV ejection fraction is severely reduced at 25 to 30%. In view of the EKG changes and the LAD territory, and prior history of 30% stenosis in the proximal LAD would strongly recommend the patient be transferred for cardiac catheterization and also to look for renal artery stenosis. Hence we will cancel the scheduled IV Lexiscan Cardiolite stress test since we need more definitive coronary anatomy delineation in view of the patient's severely reduced LV function. This is been discussed with the patient in detail. PHYSICAL EXAMINATION: The patient is morbidly obese in no acute distress Selected Entries 12/19/19 19:17 Temperature 97.7 F Temperature Oral Source Pulse Rate 72 Respiratory 22 H Rate Blood Pressure 119/56 L Blood Pressure 77 Mean BP Location Right Arm BP Position Supine O2 Sat by Pulse 100 Oximetry Oxygen Delivery Room Air Method HEAD: Is atraumatic and normocephalic. EYES: Pupils are equal round regular reactive to light accommodation. ENT: Negative.NECK: Is supple. There is no JVD. Carotids are equal there is no bruit. There is no goiter. There is no lymphadenopathy. There is no accessory muscles of respiration use. LUNGS: Clear to auscultation percussion, without any rhonchi rales or wheezing. There is no chest wall tenderness. HEART: S1-S2 is heard S1 and S2 of normal intensity. There is no S3 gallop there is no S4 gallop there is a systolic murmur in the left sternal border and the apex without radiation. There is no rub. ABDOMEN: Is mildly obese, nontender. There is no hepatosplenomegaly. Bowel sounds well heard. There is no tender areas of masses. EXTREMITIES: Femorals well felt. There is no femoral bruits. Leg pulses are well felt. There is no pedal edema. There is no DVT or cellulitis. There is no calf tenderness. There is no cyanosis or clubbing. 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 PSYCHIATRIC: The patient judgment and insight are intact.. Her affect is normal. Since admission the patient's 48-hour total intake has been 1641 mL. Output for the last 48 hours is 4720 mL. Labs- All tests 24 hr 12/19/19 12/19/19 12/19/19 06:16 06:16 06:16 WBC 13.0 H RBC 4.28 Hgb 12.9 Hct 38.4 MCV 90 MCH 30.2 MCHC 33.6 RDW 13.5 Plt Count 213 Lymph % (Auto) 24.6 [place] % (Auto) 7.4 Eos % (Auto) 0.8 Baso % (Auto) 1.0 Absolute Neuts (auto) 8.6 H Absolute Lymphs (auto) 3.2 Absolute Monos (auto) 1.0 Absolute Eos (auto) 0.1 Absolute Basos (auto) 0.1 Seg Neutrophils % 66.2 Sodium 137.6 Potassium 4.2 Chloride 100 Carbon Dioxide 31 H Anion Gap 7 BUN 37 H Creatinine 1.33 H Est GFR ( Amer) 49 L Est GFR (MDRD) Non-Af 40 L Glucose 114 H POC Glucose Calcium 9.6 Magnesium 1.9 Total Bilirubin 0.7 Direct Bilirubin 0.3 Neonat Total Bilirubin Not Reportable Neonat Direct Bilirubin Not Reportable Neonat Indirect Bili Not Reportable AST 19 ALT 17 Alkaline Phosphatase 47 NT-Pro-B Natriuret Pep 1770 H Total Protein 6.3 Albumin 3.6 12/19/19 12/19/19 12/19/19 07:51 11:56 16:21 WBC RBC Hgb Hct MCV MCH MCHC RDW Plt Count Lymph % (Auto) [place] % (Auto) Eos % (Auto) Baso % (Auto) Absolute Neuts (auto) Absolute Lymphs (auto) Absolute Monos (auto) Absolute Eos (auto) Absolute Basos (auto) Seg Neutrophils % Sodium Potassium Chloride Carbon Dioxide Anion Gap BUN Creatinine Est GFR ( Amer) Est GFR (MDRD) Non-Af Glucose POC Glucose 132 H 161 H 110 Calcium Magnesium Total Bilirubin Direct Bilirubin Neonat Total Bilirubin Neonat Direct Bilirubin Neonat Indirect Bili AST ALT Alkaline Phosphatase NT-Pro-B Natriuret Pep Total Protein Albumin 12/19/19 21:08 WBC RBC Hgb Hct MCV MCH MCHC RDW Plt Count Lymph % (Auto) [place] % (Auto) Eos % (Auto) Baso % (Auto) Absolute Neuts (auto) Absolute Lymphs (auto) Absolute Monos (auto) Absolute Eos (auto) Absolute Basos (auto) Seg Neutrophils % Sodium Potassium Chloride Carbon Dioxide Anion Gap BUN Creatinine Est GFR ( Amer) Est GFR (MDRD) Non-Af Glucose POC Glucose 198 H Calcium Magnesium Total Bilirubin Direct Bilirubin Neonat Total Bilirubin Neonat Direct Bilirubin Neonat Indirect Bili AST ALT Alkaline Phosphatase NT-Pro-B Natriuret Pep Total Protein Albumin Chest X-Ray 12/17/19 16:52 IMPRESSION: Constellation of findings consistent with CHF exacerbation. Superimposed infectious process is not excluded. Chest X-Ray 12/18/19 07:00 IMPRESSION: 1. Interval resolution of the CHF changes since the prior examination dated 12/17/2019. 2. Focal area of airspace disease suggested in the right infrahilar region. 3. Cardiomegaly. ECHOCARDIOGRAM shows mildly dilated LV with severely reduced LV ejection fraction. LV ejection fraction is 25% to 30%. There is mild pulmonary hypertension. Please see report IMPRESSION/RECOMMENDATION: 1. Acute renal insufficiency: Doubt if this is due to overdiuresis alone. Need to assess for renal artery stenosis. We will hold the patient's Lasix and the lisinopril and gently hydrate the patient. The patient may need evaluation for renal artery stenosis. This is due to the fact that the patient came in with uncontrolled controlled hypertension, heart failure and also BUN and creatinine increased on just 1 dose of lisinopril. 2. Acute heart failure most likely a combination of systolic and diastolic heart failure secondary to uncontrolled hypertension. As mentioned earlier need to assess for renal artery stenosis. 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 Especially with anterior T wave changes would strongly recommend that the patient be transferred to tertiary care center for further work-up including possible cardiac catheterization. I expect the renal function to improve with hydration and holding the patient's lisinopril and Lasix. The patient also may need evaluation for renal artery stenosis. This is been discussed with the patient will make arrangements for the patient to be transferred to [facility] for further cardiac and renal artery stenosis work-up. This has been discussed the patient the patient is agreeable. 4. Uncontrolled hypertension on admission. At present much blood pressure much improved. 5.. Diabetes mellitus: Continue current antidiabetic medication. 6.. Coronary artery disease, patient had mild LAD disease by catheter 2018. But the patient has new EKG changes. Hence would need further ischemic work-up. Strongly recommend cardiac catheterization if the patient's renal function would allow 7. Abnormal EKG: EKG consistent with anterolateral ischemia. Needs assessment for progression of proximal LAD disease which is 30% by cardiac catheterization 2018 8.? History of bronchial asthma. [The question is whether this is bronchial asthma versus cardiac asthma] 9. History of CVA: At present no recurrence. Discussed with the patient for recommendation of transfer to [place]. She is acceptable. She wear of the benefits and risks. Medical decision making is of high complexity. Medications reviewed and medications regimen and management plan discussed with Dr. Carter, [facility]. Will arrange for patient to be transferred in the a.
[2019-12-19] MEDS: ATORVASTATIN CALCIUM 40 MG TABLET PO SCH (21:35)
[2019-12-19] MEDS: RINGERS SOLUTION,LACTATED 1,000 ML IV PRN (22:02)
[2019-12-20] MEDS: HEPARIN SOD (PORCINE) 5,000 UNIT/ML 1 ML VIAL SUBCUT SCH ×3 (05:42→21:21)
[2019-12-20] MEDS: PANTOPRAZOLE SODIUM 20 MG TABLET.DR PO SCH (05:42)
[2019-12-20 06:23] LABS: HEMATOCRIT 40.1 % (36.0-47.0); HEMOGLOBIN 13.8 g/dL (12.0-15.5); MEAN CORPUSCULAR HEMOGLOBIN 30.4 pg (27.0-33.4); MEAN CORPUSCULAR HGB CONC 34.4 g/dL (32.0-36.0); MEAN CORPUSCULAR VOLUME 89 fl (80-97); PLATELET COUNT 227 10^3/uL (150-450); RED BLOOD COUNT 4.53 10^6/uL (3.72-5.28); RED CELL DISTRIBUTION WIDTH 13.6 % (11.5-14.0); WHITE BLOOD COUNT 9.5 10^3/uL (4.0-10.5)
[2019-12-20 06:47] LABS: ALBUMIN 3.6 g/dL (3.5-5.0); ALKALINE PHOSPHATASE 46 U/L (38-126); ANION GAP 9 (5-19); ASPARTATE AMINO TRANSFERASE 19 U/L (14-36); BILIRUBIN,DIRECT 0.4 mg/dL (0.0-0.4); BILIRUBIN,TOTAL 0.5 mg/dL (0.2-1.3); BLOOD UREA NITROGEN 37 mg/dL (7-20); CALCIUM 9.7 mg/dL (8.4-10.2); CARBON DIOXIDE 30 mmol/L (22-30); CHLORIDE 99 mmol/L (98-107); GLUCOSE 120 mg/dL (75-110); POTASSIUM 4.2 mmol/L (3.6-5.0); TOTAL PROTEIN 6.2 g/dL (6.3-8.2)
[2019-12-20 06:50] LABS: INTERNATIONAL RATION (INR) 0.92; PROTHROMBIN TIME 12.6 SEC (11.4-15.4)
[2019-12-20 06:51] LABS: PARTIAL THROMBOPLASTIN TIME 26.4 SEC (23.5-35.8)
[2019-12-20] MEDS: INSULIN LISPRO 100 UNIT/ML 3 ML VIAL SUBCUT SCH ×4 (08:06→21:22)
[2019-12-20] MEDS: HUM INSULIN NPH/REG INSULIN HM 100 UNIT/1 ML 3 ML SUBCUT SCH ×2 (08:06→17:22)
[2019-12-20] MEDS: ASPIRIN 81 MG TABLET, ENT COATED PO SCH (09:25)
[2019-12-20] MEDS: CLOPIDOGREL BISULFATE 75 MG TABLET PO SCH (09:25)
[2019-12-20] MEDS: AMLODIPINE BESYLATE 5 MG TABLET PO SCH (09:25)
[2019-12-20] MEDS: METOPROLOL TARTRATE 25 MG TABLET PO SCH ×2 (09:25→21:21)
--- NOTE | 2019-12-20 09:45 | Progress Note ---
Provider Note Provider Note: Cardiology PROGRESS NOTE by Dr. Erin Zamora on 12/20/2019. OBJECTIVE: The patient has no chest pain or discomfort. There is no shortness of breath. There is no PND orthopnea or leg edema. There is no ventricular or atrial arrhythmias seen on the monitor. There is no recurrence of TIA CVA symptoms. The patient's creatinine is come down to 1.20 from 1.31 with the stopping of Lasix and lisinopril and gently hydrating the patient. PHYSICAL EXAMINATION: The patient is morbidly obese. In no acute distress Selected Entries 12/20/19 07:29 Temperature 98.0 F Temperature Oral Source Pulse Rate 70 Respiratory 16 Rate Blood Pressure 125/98 H Blood Pressure 107 Mean BP Location Left Arm BP Position Sitting O2 Sat by Pulse 97 Oximetry Oxygen Delivery Room Air Method HEAD: Is atraumatic and normocephalic. EYES: Pupils are equal round regular reactive to light accommodation. ENT: Negative.NECK: Is supple. There is no JVD. Carotids are equal there is no bruit. There is no goiter. There is no lymphadenopathy. There is no accessory muscles of respiration use. LUNGS: Clear to auscultation percussion, without any rhonchi rales or wheezing. There is no chest wall tenderness. HEART: S1-S2 is heard S1 and S2 of normal intensity. There is no S3 gallop there is no S4 gallop there is a systolic murmur in the left sternal border and the apex without radiation. There is no rub. ABDOMEN: Is mildly obese, nontender. There is no hepatosplenomegaly. Bowel sounds well heard. There is no tender areas of masses. EXTREMITIES: Femorals well felt. There is no femoral bruits. Leg pulses are well felt. There is no pedal edema. There is no DVT or cellulitis. There is no calf tenderness. There is no cyanosis or clubbing. 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 PSYCHIATRIC: The patient judgment and insight are intact.. Her affect is normal. Patient 24-hour intake is 1497 mL. Output is 3250 mL. Labs- All tests 24 hr 12/19/19 12/19/19 12/19/19 11:56 16:21 21:08 WBC RBC Hgb Hct MCV MCH MCHC RDW Plt Count PT INR APTT Sodium Potassium Chloride Carbon Dioxide Anion Gap BUN Creatinine Est GFR ( Amer) Est GFR (MDRD) Non-Af Glucose POC Glucose 161 H 110 198 H Calcium Total Bilirubin Direct Bilirubin Neonat Total Bilirubin Neonat Direct Bilirubin Neonat Indirect Bili AST ALT Alkaline Phosphatase Total Protein Albumin 12/20/19 12/20/19 12/20/19 05:22 05:22 05:22 WBC 9.5 RBC 4.53 Hgb 13.8 Hct 40.1 MCV 89 MCH 30.4 MCHC 34.4 RDW 13.6 Plt Count 227 PT 12.6 INR 0.92 APTT 26.4 Sodium 137.5 Potassium 4.2 Chloride 99 Carbon Dioxide 30 Anion Gap 9 BUN 37 H Creatinine 1.20 Est GFR ( Amer) 55 L Est GFR (MDRD) Non-Af 46 L Glucose 120 H POC Glucose Calcium 9.7 Total Bilirubin 0.5 Direct Bilirubin 0.4 Neonat Total Bilirubin Not Reportable Neonat Direct Bilirubin Not Reportable Neonat Indirect Bili Not Reportable AST 19 ALT 17 Alkaline Phosphatase 46 Total Protein 6.2 L Albumin 3.6 12/20/19 07:27 WBC RBC Hgb Hct MCV MCH MCHC RDW Plt Count PT INR APTT Sodium Potassium Chloride Carbon Dioxide Anion Gap BUN Creatinine Est GFR ( Amer) Est GFR (MDRD) Non-Af Glucose POC Glucose 141 H Calcium Total Bilirubin Direct Bilirubin Neonat Total Bilirubin Neonat Direct Bilirubin Neonat Indirect Bili AST ALT Alkaline Phosphatase Total Protein Albumin Chest X-Ray 12/17/19 16:52 IMPRESSION: Constellation of findings consistent with CHF exacerbation. Superimposed infectious process is not excluded. Chest X-Ray 12/18/19 07:00 IMPRESSION: 1. Interval resolution of the CHF changes since the prior examination dated 12/17/2019. 2. Focal area of airspace disease suggested in the right infrahilar region. 3. Cardiomegaly. IMPRESSION/RECOMMENDATION: 1. Acute renal insufficiency: Doubt if this is due to overdiuresis alone. Need to assess for renal artery stenosis. We will hold the patient's Lasix and the lisinopril and gently hydrate the patient. The patient may need evaluation for renal artery stenosis. This is due to the fact that the patient came in with uncontrolled controlled hypertension, heart failure and also BUN and creatinine increased on just 1 dose of lisinopril. 2. Acute heart failure most likely a combination of systolic and diastolic heart failure secondary to uncontrolled hypertension. As mentioned earlier need to assess for renal artery stenosis. 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 Especially with anterior T wave changes would strongly recommend that the patie nt be transferred to tertiary care center for further work-up including possible cardiac catheterization. I expect the renal function to improve with hydration and holding the patient's lisinopril and Lasix. The patient also may need evaluation for renal artery stenosis. This is been discussed with the patient will make arrangements for the patient to be transferred to [facility] for further cardiac and renal artery stenosis work-up. This has been discussed the patient the patient is agreeable. 4. Uncontrolled hypertension on admission. At present much blood pressure much improved. 5.. Diabetes mellitus: Continue current antidiabetic medication. 6.. Coronary artery disease, patient had mild LAD disease by catheter 2018. But the patient has new EKG changes. Hence would need further ischemic work-up. Strongly recommend cardiac catheterization if the patient's renal function would allow 7. Abnormal EKG: EKG consistent with anterolateral ischemia. Needs assessment for progression of proximal LAD disease which is 30% by cardiac catheterization 2018 8.? History of bronchial asthma. [The question is whether this is bronchial asthma versus cardiac asthma] 9. History of CVA: At present no recurrence. Discussed with the patient for recommendation of transfer to [place]. She is acceptable. She wear of the benefits and risks. Medical decision making is of high complexity. Medications reviewed and medications regimen and management plan discussed with Dr. Carter, [facility]. Discussed the case with the [facility] insole toe snipping machine operator. Patient accepted under the care of Dr. Prince Currie, [facility] cardiology. We will sign off.
--- NOTE | 2019-12-20 17:23 | PDOC TRANSFER SUMMARY ---
General Admission Date/PCP: 12/17/19 18:48 Resuscitation Status: Full Code - Transfer Diagnosis (1) Hypertensive emergency Is this a current diagnosis for this admission?: Yes Diagnosis Summary: 12/18/2019-patient is on nitro drip. Latest blood pressure is 137/80. Consultation with cardiology was requested. Plan is to resume other home medications. 12/19/2019-blood pressure today is 120/74. Blood pressure is stable. Off the nitro drip. And is to continue amlodipine, lisinopril, Lasix 20 mg p.o. twice a day. 12/20/2019-patient came in with hypertensive emergency initially on nitro drip. It was discontinued later on. Today's blood pressure is 110/60. Stable. Because of the possibility of renal artery stenosis Lasix and lisinopril are on hold. (2) Coronary artery disease Is this a current diagnosis for this admission?: No Diagnosis Summary: Patient has a history of coronary artery disease has a cardiac cath 2018 indicates mild LAD. EKG indicates anterior T wave changes. Dr. Miller thinks patient need a cardiac cath at this time. (3) Uncontrolled type 2 diabetes mellitus Is this a current diagnosis for this admission?: Yes Diagnosis Summary: 12/18/2019-latest blood sugar is 458. Patient is on insulin sliding scale, 70/30 insulin 25 units twice daily. Diet exercise weight loss lifestyle modifications discussed with the patient. Hemoglobin A1c is 10.3. 12/19/2019-patient has history of type 2 diabetes mellitus noncompliant with medications at home. Latest blood sugar is 132. Hemoglobin A1c is 10.3. Compliance with medication was advised. To continue the present management at this time. 12/20/2019-patient has history of type 2 diabetes mellitus. Hemoglobin A1c is 10.3. Diet exercise weight loss lifestyle modifications discussed with the patient. Blood sugar this morning is 141. Plan is to continue the present management at this time. (4) Morbid obesity Is this a current diagnosis for this admission?: Yes Diagnosis Summary: 12/18/2019-BMI is more than 40 diet exercise weight loss lifestyle modifications discussed with the patient. (5) PILLO (acute kidney injury) Is this a current diagnosis for this admission?: Yes Diagnosis Summary: 12/20/2019-on admission serum creatinine is 0.87, peaked to 1.33. Today serum creatinine is 1.2. Patient came in with elevated BUN, poor ejection fraction, uncontrolled hypertension, patient need to be evaluated for renal artery stenosis. (6) CHF (congestive heart failure) Is this a current diagnosis for this admission?: Yes Diagnosis Summary: Patient admitted with acute heart failure with a combination of systolic and diastolic heart failure secondary to uncontrolled hypertension. EKG indicates anterior T wave abnormalities, as per cardiology recommendations patient is going to [facility] in [place] for possible cardiac cath. (7) Abnormal EKG Is this a current diagnosis for this admission?: Yes Diagnosis Summary: 12/20/2019-patient has abnormal EKG indicative of anterolateral ischemia and patient has history of proximal LAD seen on cardiac cath in 2018. Patient is going for cardiac cath in [place] as per Dr. Miller. - Transfer Medications Home Medications: Insulin NPH Human Isophane [Novolin N Flexpen] 12 unit SQ BID 12/18/19 Insulin Regular, Human [Novolin R] 8 unit SQ TID 12/18/19 Transfer Medications: Current Medications Acetaminophen (Tylenol 325 Mg Tablet) 650 mg PO Q4HP PRN PRN Reason: pain or temp greater than 101F Stop: 01/16/20 19:07 Al Hydrox/Mg Hydrox/Simethicone (Maalox Plus Susp 30 Udcup) 30 ml PO Q4HP PRN PRN Reason: HEARTBURN Stop: 01/16/20 19:07 Albuterol (Ventolin Hfa 8 Gm Mdi (1 Mdi/Er Disp)) 2 puff IH NOW TAVON Stop: 01/16/20 16:59 Albuterol/Ipratropium (Duoneb 3 Ml Ampul) 3 ml NEB RTQ4HP PRN PRN Reason: SHORTNESS OF BREATH Stop: 01/16/20 19:17 Amlodipine Besylate (Norvasc 5 Mg Tablet) 5 mg PO DAILY TAVON Stop: 01/18/20 09:59 Last Admin: 12/20/19 09:25 Dose: 5 mg Documented by: Aspirin (Ecotrin 81 Mg Ec Tablet) 81 mg PO DAILY TAVON Stop: 01/17/20 09:59 Last Admin: 12/20/19 09:25 Dose: 81 mg Documented by: Atorvastatin Calcium (Lipitor 40 Mg Tablet) 40 mg PO QHS TAVON Stop: 01/16/20 21:59 Last Admin: 12/19/19 21:35 Dose: 40 mg Documented by: Clopidogrel Bisulfate (Plavix 75 Mg Tablet) 75 mg PO DAILY [facility] Stop: 01/18/20 09:59 Last Admin: 12/20/19 09:25 Dose: 75 mg Documented by: Dextrose (Dextrose Inj 50% Syringe (25 Gm/50 Ml)) 12.5 gm IV PRN PRN; Protocol PRN Reason: FOR BG 50-69 IN ALERT PATIENT Stop: 01/16/20 19:18 Dextrose (Dextrose Inj 50% Syringe (25 Gm/50 Ml)) 25 gm IV PRN PRN; Protocol PRN Reason: PER PROTOCOL Stop: 01/16/20 19:18 Glucagon (Glucagen Inj 1 Mg Vial) 1 mg IM PRN PRN; Protocol PRN Reason: Evaluate for BG < 70 Stop: 01/16/20 19:18 Glucose (Glutose 40% Gel 15 Gm Tube) 15 gm PO PRN PRN; Protocol PRN Reason: FOR BG 50-69 IN ALERT PATIENT Stop: 01/16/20 19:18 Glucose (Glutose 40% Gel 15 Gm Tube) 30 gm PO PRN PRN; Protocol PRN Reason: FOR BG < 50 IN ALERT PATIENT Stop: 01/16/20 19:18 Heparin Sodium (Porcine) (Heparin Inj 5,000 Units/Ml 1 Ml Vial) 5,000 unit SUBCUT Q8 [facility] Stop: 01/16/20 21:59 Last Admin: 12/20/19 13:07 Dose: 5,000 unit Documented by: Lactated Ringer's (Lactated Ringers 1000 Ml Iv Soln) 1,000 mls @ 50 mls/hr IV CONTINUOUS PRN PRN Reason: THIS MED IS NOT "PRN" Stop: 01/18/20 20:55 Last Admin: 12/19/19 22:02 Dose: 50 mls/hr Documented by: Insulin Human Isoph/Insulin Regular (Insulin Inj 70-30 (100 Unit/1 Ml) 3 Ml Vial) 25 unit SUBCUT BIDACBS [facility] Stop: 01/17/20 15:59 Last Admin: 12/20/19 08:06 Dose: 25 unit Documented by: Insulin Human Lispro (Humalog Insulin 100 Unit/1 Ml 3 Ml Vial) 0 - 16 unit SUBCUT ACHS [facility]; Protocol Stop: 01/16/20 21:59 Last Admin: 12/20/19 13:07 Dose: 6 unit Documented by: Lisinopril (Prinivil 10 Mg Tablet) 10 mg PO DAILY TAVON Stop: 01/17/20 09:59 Last Admin: 12/19/19 10:40 Dose: 10 mg Documented by: Magnesium Hydroxide (Milk Of Magnesia 30 Ml Udcup) 30 ml PO HSP PRN PRN Reason: FOR CONSTIPATION Stop: 01/16/20 19:07 Metoprolol Tartrate (Lopressor 25 Mg Tablet) 25 mg PO Q12 TAVON Stop: 01/17/20 21:59 Last Admin: 12/20/19 09:25 Dose: 25 mg Documented by: Nitroglycerin (Nitrostat 0.4 Mg (1/150 Gr) Tabs 25/Bottle) 1 tab SL Q5MP PRN PRN Reason: FOR CHEST PAIN Stop: 01/16/20 19:07 Pantoprazole Sodium (Protonix [address] Tablet) 20 mg PO Q6AM TAVON Stop: 01/17/20 05:59 Last Admin: 12/20/19 05:42 Dose: 20 mg Documented by: Promethazine HCl (Phenergan Inj 25 Mg/1 Ml Vial) 12.5 mg IV Q4HP PRN PRN Reason: FOR NAUSEA/VOMITING Stop: 01/16/20 19:07 Sodium Chloride (Saline Flush 2.5 Ml Monoject Prefil Syrin) 2.5 ml IV Q8 TAVON Stop: 01/16/20 21:59 Last Admin: 12/20/19 13:10 Dose: 2.5 ml Documented by: - Allergies Allergies/Adverse Reactions: coconut Allergy (Verified 12/17/19 17:04) codeine [Codeine] Allergy (Verified 12/17/19 17:04) egg [Egg] Allergy (Verified 12/17/19 17:04) milk [Milk] Allergy (Verified 12/17/19 17:04) Sulfa (Sulfonamide Antibiotics) Allergy (Verified 12/17/19 17:04) tuna oil Allergy (Verified 12/17/19 17:04) adhesive tape Adverse Reaction (Verified 12/17/19 17:04) - Diet/Activity Discharge Diet: Cardiac, Diabetic Hospital Course Hospital Course: 64-year-old female admitted for CHF exacerbation previous echocardiogram shows normal EF as per Dr. Miller patient has a Takotsubo syndrome. Patient also has a history of hypertension. Patient has history of [place]. At the time of my examination patient is on nitro drip. Receiving oxygen via nasal cannula. Comfortably in the bed communicating well. Consultation with Dr. Miller is requested. Patient is also on Lasix 20 mg twice daily. 12/19/2019-no acute events in the last 24 hours. Afebrile. Patient is scheduled for the stress test tomorrow by Dr. Miller. [id number]-old female noncompliant with her medications because of her lack of insurance admitted with hypertensive emergency. Initially on nitro drip. Cardiology consult was requested because of concerns about CHF. Dr. Miller did the consult found to have a combination of systolic and diastolic heart failure with a decreased EF and abnormal EKG. Patient also had PILLO. Dr. Miller's recommendation is to transfer the patient to [facility] for a cardiac cath. The accepting physician is Prince fisher Physical Exam Vital Signs: Temp Pulse Resp BP Pulse Ox 97.9 F 64 16 140/67 H 98 12/20/19 15:29 12/20/19 15:29 12/20/19 15:29 12/20/19 15:29 12/20/19 15:29 Intake & Output 12/19/19 12/20/19 12/21/19 06:59 06:59 06:59 Intake Total 1228 1497 240 Output Total 3000 3250 700 Balance -3613 -2815 -196 Weight 107.6 kg 103.9 kg General appearance: PRESENT: no acute distress, obese Head exam: PRESENT: atraumatic Eye exam: PRESENT: conjunctiva pink, PERRLA Mouth exam: PRESENT: moist, tongue midline Respiratory exam: PRESENT: clear to auscultation alla. ABSENT: rales, rhonchi, wheezes Cardiovascular exam: PRESENT: RRR, systolic murmur. ABSENT: diastolic murmur, rubs Pulses: PRESENT: normal dorsalis pedis pul GI/Abdominal exam: PRESENT: normal bowel sounds, soft. ABSENT: distended, guarding, mass, organolmegaly, rebound, tenderness Rectal exam: PRESENT: deferred Extremities exam: PRESENT: full ROM. ABSENT: calf tenderness, clubbing, pedal e zachery Neurological exam: PRESENT: alert, awake, oriented to person, oriented to place, oriented to time, oriented to situation, CN II-XII grossly intact. ABSENT: motor sensory deficit Psychiatric exam: PRESENT: appropriate affect, normal mood. ABSENT: homicidal ideation, suicidal ideation Results Laboratory Results: 12/20/19 05:22 12/20/19 05:22 12/20/19 12/20/19 05:22 05:22 WBC 9.5 RBC 4.53 Hgb 13.8 Hct 40.1 MCV 89 MCH 30.4 MCHC 34.4 RDW 13.6 Plt Count 227 Sodium 137.5 Potassium 4.2 Chloride 99 Carbon Dioxide 30 Anion Gap 9 BUN 37 H Creatinine 1.20 Est GFR ( Amer) 55 L Glucose 120 H Calcium 9.7 Total Bilirubin 0.5 AST 19 Alkaline Phosphatase 46 Total Protein 6.2 L Albumin 3.6 12/17/19 12/17/19 12/17/19 17:12 17:12 22:19 CK-MB (CK-2) 2.55 Troponin I 0.027 NT-Pro-B Natriuret Pep 1770 H 12/18/19 12/19/19 04:03 06:16 CK-MB (CK-2) 2.66 Troponin I NT-Pro-B Natriuret Pep 1770 H Impressions: Chest X-Ray 12/18/19 07:00 IMPRESSION: 1. Interval resolution of the CHF changes since the prior ex amination dated 12/17/2019. 2. Focal area of airspace disease suggested in the right infrahilar region. 3. Cardiomegaly. Plan Discharge Plan: Patient is going to [facility] for cardiac cath. Time Spent: Greater than 30 Minutes
[2019-12-20] MEDS: RINGERS SOLUTION,LACTATED 1,000 ML IV PRN (17:25)
[2019-12-20] MEDS: ATORVASTATIN CALCIUM 40 MG TABLET PO SCH (21:21)
[2019-12-21] MEDS: HEPARIN SOD (PORCINE) 5,000 UNIT/ML 1 ML VIAL SUBCUT SCH ×3 (05:49→21:32)
[2019-12-21] MEDS: PANTOPRAZOLE SODIUM 20 MG TABLET.DR PO SCH (05:50)
[2019-12-21 07:14] LABS: ANION GAP 6 (5-19); BLOOD UREA NITROGEN 28 mg/dL (7-20); CALCIUM 9.7 mg/dL (8.4-10.2); CARBON DIOXIDE 31 mmol/L (22-30); CHLORIDE 102 mmol/L (98-107); CHOLESTEROL 133.79 mg/dL (0-200); GLUCOSE 117 mg/dL (75-110); POTASSIUM 4.2 mmol/L (3.6-5.0); TRIGLYCERIDES 161 mg/dL (<150)
[2019-12-21 07:25] LABS: DIRECT LDL 60 mg/dL (<100)
[2019-12-21 07:28] LABS: VLDL CHOLESTEROL 32.2 mg/dL (10-31)
[2019-12-21] MEDS: INSULIN LISPRO 100 UNIT/ML 3 ML VIAL SUBCUT SCH ×4 (08:27→21:32)
[2019-12-21] MEDS: HUM INSULIN NPH/REG INSULIN HM 100 UNIT/1 ML 3 ML SUBCUT SCH ×2 (08:27→18:32)
[2019-12-21] MEDS: ASPIRIN 81 MG TABLET, ENT COATED PO SCH (10:21)
[2019-12-21] MEDS: CLOPIDOGREL BISULFATE 75 MG TABLET PO SCH (10:21)
[2019-12-21] MEDS: METOPROLOL TARTRATE 25 MG TABLET PO SCH ×2 (10:21→21:31)
[2019-12-21] MEDS: AMLODIPINE BESYLATE 5 MG TABLET PO SCH (10:21)
[2019-12-21] MEDS: RINGERS SOLUTION,LACTATED 1,000 ML IV PRN (15:48)
--- NOTE | 2019-12-21 16:59 | PDOC PROGRESS REPORT ---
Subjective Progress Note for:: 12/21/19 Subjective:: 12/18/19 64-year-old female admitted for CHF exacerbation previous echocardiogram shows normal EF as per Dr. Miller patient has a Takotsubo syndrome. Patient also has a history of hypertension. Patient has history of [place]. At the time of my examination patient is on nitro drip. Receiving oxygen via nasal cannula. Comfortably in the bed communicating well. Consultation with Dr. Miller is requested. Patient is also on Lasix 20 mg twice daily. 12/19/2019-no acute events in the last 24 hours. Afebrile. Patient is scheduled for the stress test tomorrow by Dr. Miller. 12/21/2019-patient is accepted to [facility] waiting for the bed at this time. Reason For Visit: HEART FAILURE,ACUTE RESPIRATORY FAILURE WITH Physical Exam Vital Signs: Temp Pulse Resp BP Pulse Ox 97.6 F 59 L 18 140/80 H 96 12/21/19 11:41 12/21/19 11:41 12/21/19 11:41 12/21/19 11:41 12/21/19 11:41 Intake & Output 12/20/19 12/21/19 12/22/19 06:59 06:59 06:59 Intake Total 1497 2103 1222 Output Total 3250 3000 Balance -1753 -897 1222 Weight 103.9 kg 104.8 kg General appearance: PRESENT: no acute distress, obese Head exam: PRESENT: atraumatic Eye exam: PRESENT: PERRLA Teeth exam: PRESENT: poor dentation Neck exam: ABSENT: carotid bruit, JVD, lymphadenopathy, thyromegaly Respiratory exam: PRESENT: decreased breath sounds Cardiovascular exam: PRESENT: RRR. ABSENT: diastolic murmur, rubs, systolic murmur GI/Abdominal exam: PRESENT: normal bowel sounds, soft. ABSENT: distended, guarding, mass, organolmegaly, rebound, tenderness Rectal exam: PRESENT: deferred Extremities exam: PRESENT: full ROM. ABSENT: calf tenderness, clubbing, pedal edema Neurological exam: PRESENT: alert, awake, oriented to person, oriented to place, oriented to time, oriented to situation, CN II-XII grossly intact. ABSENT: motor sensory deficit Psychiatric exam: PRESENT: appropriate affect, normal mood. ABSENT: homicidal ideation, suicidal ideation Results Laboratory Results: 12/20/19 05:22 12/21/19 06:10 12/21/19 06:10 Sodium 138.9 Potassium 4.2 Chloride 102 Carbon Dioxide 31 H Anion Gap 6 BUN 28 H Creatinine 1.18 Est GFR ( Amer) 56 L Glucose 117 H Calcium 9.7 Triglycerides 161 H Cholesterol 133.79 LDL Cholesterol Direct 60 VLDL Cholesterol 32.2 H HDL Cholesterol 47 12/17/19 12/17/19 12/17/19 17:12 17:12 22:19 CK-MB (CK-2) 2.55 Troponin I 0.027 NT-Pro-B Natriuret Pep 1770 H 12/18/19 12/19/19 04:03 06:16 CK-MB (CK-2) 2.66 Troponin I NT-Pro-B Natriuret Pep 1770 H Impressions: Chest X-Ray 12/18/19 07:00 IMPRESSION: 1. Interval resolution of the CHF changes since the prior examination dated 12/17/2019. 2. Focal area of airspace disease suggested in the right infrahilar region. 3. Cardiomegaly. Assessment and Plan - Diagnosis (1) Hypertensive emergency Is this a current diagnosis for this admission?: Yes Plan: 12/18/2019-patient is on nitro drip. Latest blood pressure is 137/80. Consultation with cardiology was requested. Plan is to resume other home medications. 12/19/2019-blood pressure today is 120/74. Blood pressure is stable. Off the nitro drip. And is to continue amlodipine, lisinopril, Lasix 20 mg p.o. twice a day. 12/20/2019-patient came in with hypertensive emergency initially on nitro drip. It was discontinued later on. Today's blood pressure is 110/60. Stable. Because of the possibility of renal artery stenosis Lasix and lisinopril are on hold. 12/21/2019 blood pressure is 126/81 this morning stable. Not in distress. Lisinopril, Lasix on hold. (2) Coronary artery disease Qualifiers: Coronary Disease-Associated Artery/Lesion type: [place] artery [place] vs. transplanted heart: [place] heart Associated angina: angina presence unspecified Qualified Code(s): I25.10 - Atherosclerotic heart disease of [place] coronary artery without angina pectoris Is this a current diagnosis for this admission?: No Plan: 12/18/2019-patient has history of coronary artery disease denies any chest pains at this time. 12/19-Diagnosis Summary: Patient has a history of coronary artery disease has a cardiac cath 2018 indicates mild LAD. EKG indicates anterior T wave changes. Dr. Miller thinks patient need a cardiac cath at this time. 12/21/2019-patient has low ejection fraction with history of coronary artery d isease with mild LAD associated with abnormal EKG changes plan is to arrange for cardiac cath and patient was accepted to [place] waiting for bed availability. (3) Uncontrolled type 2 diabetes mellitus Qualifiers: Glycemic state: with hyperglycemia Qualified Code(s): E11.65 - Type 2 diabetes mellitus with hyperglycemia Is this a current diagnosis for this admission?: Yes Plan: 12/18/2019-latest blood sugar is 458. Patient is on insulin sliding scale, 70/30 insulin 25 units twice daily. Diet exercise weight loss lifestyle modifications discussed with the patient. Hemoglobin A1c is 10.3. 12/19/2019-patient has history of type 2 diabetes mellitus noncompliant with medications at home. Latest blood sugar is 132. Hemoglobin A1c is 10.3. Compliance with medication was advised. To continue the present management at this time. 12/20/2019-patient has history of type 2 diabetes mellitus. Hemoglobin A1c is 10.3. Diet exercise weight loss lifestyle modifications discussed with the patient. Blood sugar this morning is 141. Plan is to continue the present man agement at this time. 12/21/19-patient has history of type 2 diabetes mellitus hemoglobin A1c is 10.3 blood sugar this morning is 76. Plan is to continue the present management at this time. (4) Morbid obesity Is this a current diagnosis for this admission?: Yes Plan: 12/18/2019-BMI is more than 40 diet exercise weight loss lifestyle modifications discussed with the patient. (5) PILLO (acute kidney injury) Is this a current diagnosis for this admission?: Yes Plan: 12/20/2019-on admission serum creatinine is 0.87, peaked to 1.33. Today serum creatinine is 1.2. Patient came in with elevated BUN, poor ejection fraction, uncontrolled hypertension, patient need to be evaluated for renal artery stenosis. 12/21/2019-patient is on gentle IV hydration creatinine today is 1.18. PILLO is resolving. (6) CHF (congestive heart failure) Is this a current diagnosis for this admission?: Yes Plan: Patient admitted with acute heart failure with a combination of systolic and diastolic heart failure secondary to uncontrolled hypertension. EKG indicates anterior T wave abnormalities, as per cardiology recommendations patient is going to [facility] in [place] for possible cardiac cath. (7) Abnormal EKG Is this a current diagnosis for this admission?: Yes Plan: 12/20/2019-patient has abnormal EKG indicative of anterolateral ischemia and patient has history of proximal LAD seen on cardiac cath in 2018. Patient is going for cardiac cath in [place] as per Dr. Miller. 12/21/2019-patient is complaining of mild discomfort in the chest this morning. Complaining of discomfort even at rest. Patient waiting for cardiac cath at this time. - Plan Summary Summary: 12/16/19 Continue nitro drip and add lasix. Continue other antihypertensives. admit to IMCU, serial troponins and strict I&O's - Time Anticipated Discharge Disposition: Tertiary Anticipated Discharge Timeframe: within 24 hours
[2019-12-21] MEDS: ATORVASTATIN CALCIUM 40 MG TABLET PO SCH (21:32)
[2019-12-22] MEDS: PANTOPRAZOLE SODIUM 20 MG TABLET.DR PO SCH (05:13)
[2019-12-22] MEDS: HEPARIN SOD (PORCINE) 5,000 UNIT/ML 1 ML VIAL SUBCUT SCH ×2 (05:13→14:26)
[2019-12-22] MEDS: HUM INSULIN NPH/REG INSULIN HM 100 UNIT/1 ML 3 ML SUBCUT SCH ×2 (08:22→17:08)
[2019-12-22] MEDS: INSULIN LISPRO 100 UNIT/ML 3 ML VIAL SUBCUT SCH ×3 (08:23→17:06)
[2019-12-22] MEDS: AMLODIPINE BESYLATE 5 MG TABLET PO SCH (10:19)
[2019-12-22] MEDS: ASPIRIN 81 MG TABLET, ENT COATED PO SCH (10:19)
[2019-12-22] MEDS: METOPROLOL TARTRATE 25 MG TABLET PO SCH (10:19)
[2019-12-22] MEDS: CLOPIDOGREL BISULFATE 75 MG TABLET PO SCH (10:19)
[2019-12-22] MEDS: RINGERS SOLUTION,LACTATED 1,000 ML IV PRN (12:00)
[2019-12-22] MEDS ORDERED: HYDRALAZINE HCL INJ/PF 20 MG/1 ML SDV IV PRN (14:20)
--- NOTE | 2019-12-22 14:25 | PDOC PROGRESS REPORT ---
Subjective Progress Note for:: 12/22/19 Subjective:: The patient is a 64-year-old female with a past medical history of NM, hypertension, hyperlipidemia, asthma, DM 2, diverticulitis, arthritis, depression, and morbid obesity who was admitted 12/17/2019 for hypertensive emergency and CHF exacerbation. Now awaiting transfer to [facility] for cardiac cath. Patient was seen on morning rounds. She was found resting in bed, comfortably, on room air. She reports continued, intermittent, episodes of chest discomfort lasting "a few minutes" without associated symptoms. She denies aggravating or alleviating factors. She is unable to describe her discomfort; states only that "it feels wrong and I don't like it." She otherwise denies fever, chills, palpitations, dyspnea, orthopnea, abdominal pain, nausea and vomiting. She has no questions or concerns at this time. No concerns per nursing. Reason For Visit: HEART FAILURE,ACUTE RESPIRATORY FAILURE WITH Physical Exam Vital Signs: Temp Pulse Resp BP Pulse Ox 98.2 F 71 18 154/78 H 99 12/22/19 11:05 12/22/19 11:05 12/22/19 11:05 12/22/19 11:05 12/22/19 11:05 Intake & Output 12/21/19 12/22/19 12/23/19 06:59 06:59 06:59 Intake Total 2103 3022 1000 Output Total 3000 3775 Balance -897 -753 1000 Weight 104.8 kg 103.9 kg General appearance: PRESENT: no acute distress, cooperative, obese, well- developed Head exam: PRESENT: atraumatic, normocephalic Eye exam: PRESENT: conjunctiva pink, EOMI, PERRLA. ABSENT: scleral icterus Mouth exam: PRESENT: moist, tongue midline Teeth exam: PRESENT: poor dentation Respiratory exam: PRESENT: clear to auscultation alla, symmetrical, unlabored. ABSENT: rales, rhonchi, wheezes Cardiovascular exam: PRESENT: RRR, +S1, +S2. ABSENT: diastolic murmur, rubs, systolic murmur Vascular exam: PRESENT: normal capillary refill Extremities exam: PRESENT: full ROM. ABSENT: calf tenderness, clubbing, pedal edema Neurological exam: PRESENT: alert, awake, oriented to person, oriented to place, oriented to time, oriented to situation, CN II-XII grossly intact. ABSENT: motor sensory deficit Psychiatric exam: PRESENT: appropriate affect, normal mood. ABSENT: homicidal ideation, suicidal ideation Skin exam: PRESENT: dry, intact, warm. ABSENT: cyanosis, rash Results Laboratory Results: 12/20/19 05:22 12/21/19 06:10 12/17/19 12/17/19 12/17/19 17:12 17:12 22:19 CK-MB (CK-2) 2.55 Troponin I 0.027 NT-Pro-B Natriuret Pep 1770 H 12/18/19 12/19/19 04:03 06:16 CK-MB (CK-2) 2.66 Troponin I NT-Pro-B Natriuret Pep 1770 H Impressions: Chest X-Ray 12/18/19 07:00 IMPRESSION: 1. Interval resolution of the CHF changes since the prior examination dated 12/17/2019. 2. Focal area of airspace disease suggested in the right infrahilar region. 3. Cardiomegaly. Assessment and Plan - Diagnosis (1) Abnormal EKG Is this a current diagnosis for this admission?: Yes Plan: 12/20/2019-patient has abnormal EKG indicative of anterolateral ischemia and patient has history of proximal LAD seen on cardiac cath in 2018. Patient is going for cardiac cath in [place] as per Dr. Miller. 12/21/2019-patient is complaining of mild discomfort in the chest this morning. Complaining of discomfort even at rest. Patient waiting for cardiac cath at this time. 12/22/19- Continues intermittent chest discomfort. Accepted to [facility] for transfer; awaiting bed assignment. Cardiology is consulted; primary management per Dr. Miller. Continue daily Aspirin and Plavix. Nitro SL prn chest pain (2) PILLO (acute kidney injury) Is this a current diagnosis for this admission?: Yes Plan: Resolved. Cr 0.87-> 1.33-> 1.18 Continue gentle IVF. Avoid nephrotoxic medications as able; renally dosed where appropriate. Follow chemistries. (3) CHF (congestive heart failure) Is this a current diagnosis for this admission?: Yes Plan: Patient admitted with acute heart failure with a combination of systolic and diastolic heart failure secondary to uncontrolled hypertension. EKG indicates anterior T wave abnormalities, as per cardiology recommendations patient is going to [facility] in [place] for possible cardiac cath. Echo demonstrated left ventricular dilitations, LVEF 25-30%, grade I/IV ventricular diastolic dysfunction, mild pulmonary hypertension Awaiting transfer to [facility]. Cardiology is consulted; primary management per Dr. Miller. Continue daily aspirin, Plavix, and statin therapy. On metoprolol and amlodipine Holding MARYURI r/t possible RAUDEL; will request Renal U/S as we are still awaiting bed assignment. (4) Coronary artery disease Qualifiers: Coronary Disease-Associated Artery/Lesion type: [place] artery [place] vs. transplanted heart: [place] heart Associated angina: angina presence unspecified Qualified Code(s): I25.10 - Atherosclerotic heart disease of [place] coronary artery without angina pectoris Is this a current diagnosis for this admission?: No Plan: Monitor on telemetry. Management as above. (5) Hypertensive emergency Is this a current diagnosis for this admission?: Yes Plan: Resolved; blood pressures are improved, though remain on the high side 154/78 Initially on Nitro gtt. Currently on metoprolol and amlodipine. Lisinopril and Lasix on hold. Will obtain Renal artery U/s IV Hydralazine prn BP (6) Morbid obesity Is this a current diagnosis for this admission?: Yes Plan: BMI 39.3 Lifestyle modification and dietary discretion are advised. (7) Uncontrolled type 2 diabetes mellitus Qualifiers: Glycemic state: with hyperglycemia Qualified Code(s): E11.65 - Type 2 diabetes mellitus with hyperglycemia Is this a current diagnosis for this admission?: Yes Plan: Hemoglobin A1c is 10.3% Patient is placed on a consistent carb/cardiac diet. Accu-Cheks before meals and at bedtime with Humalog for sliding scale coverage. Hypoglycemia protocol in place. - Time Time Spent with patient: 25-34 minutes Medications reviewed and adjusted accordingly: Yes Anticipated Discharge Disposition: Tertiary Anticipated Discharge Timeframe: when bed available
--- NOTE | 2019-12-22 15:25 | RADIOLOGY REPORT (SQ) ---
EXAM DESCRIPTION: U/S RETROPERITON (RENAL/AORTA) IMAGES COMPLETED DATE/TIME: 12/22/2019 3:15 pm REASON FOR STUDY: unctonrolled htn; RAUDEL? COMPARISON: None. TECHNIQUE: Realtime and static grayscale images acquired. Selected color Doppler, velocities and spe ctral images recorded. LIMITATIONS: Overlying bowel gas. Limited visualization of renal artery origins. FINDINGS: RIGHT KIDNEY: RENAL ARTERY VELOCITIES: 82.5 cm/sec. Segmental artery velocity 46.3 cm/sec. RENAL VEIN: Color doppler flow present, patent. VELOCITY RATIO: 0.9. Normal waveforms. KIDNEY: Normal size. No significant pathology. LEFT KIDNEY: RENAL ARTERY VELOCITIES: 94.2 cm/sec. Segmental artery velocity 52.8 cm/sec. RENAL VEIN: Color doppler flow present, patent. VELOCITY RATIO: 0.7. Normal waveforms. KIDNEY: Normal size. No significant pathology. BLADDER: Normal. OTHER: No other significant finding. IMPRESSION: NO DOPPLER EVIDENCE OF HEMODYNAMICALLY SIGNIFICANT RENAL ARTERY STENOSIS. COMMENT: NORMAL RENAL ARTERY/AORTA VELOCITY RATIO IS LESS THAN OR EQUAL TO 3.5. TECHNICAL DOCUMENTATION: JOB ID: [id number] [employer]- All Rights Reserved Reading location - IP/workstation name: [email or web address]
[2019-12-22 19:08] VITALS: BP 148/69
== END 2019-12-22 19:15 | disposition short-term general hospital (02) | DRG 304 ==
LOC: ER 16:29 → EH 18:48 → 3W 21:15
PROVIDERS: ADMIT Hospitalist; ATTEND Internal Medicine
DX: I16.1 Hypertensive emergency (principal); J81.0 Acute pulmonary edema; J96.01 Acute respiratory failure with hypoxia; I50.41 Acute combined systolic (congestive) and diastolic (congestive) heart failure; N17.9 Acute kidney failure, unspecified; Z68.41 Body mass index [BMI] 40.0-44.9, adult; I51.81 Takotsubo syndrome; I11.0 Hypertensive heart disease with heart failure; T46.4X6A Underdosing of angiotensin-converting-enzyme inhibitors, initial encounter; E11.65 Type 2 diabetes mellitus with hyperglycemia; J45.909 Unspecified asthma, uncomplicated; E78.00 Pure hypercholesterolemia, unspecified; I25.10 Atherosclerotic heart disease of native coronary artery without angina pectoris; F41.8 Other specified anxiety disorders; E66.01 Morbid (severe) obesity due to excess calories; I25.2 Old myocardial infarction; Z91.120 Patient's intentional underdosing of medication regimen due to financial hardship; Y92.018 Other place in single-family (private) house as the place of occurrence of the external cause; Z91.012 Allergy to eggs; Z91.011 Allergy to milk products; Z88.5 Allergy status to narcotic agent; Z88.2 Allergy status to sulfonamides; Z91.018 Allergy to other foods; Z79.82 Long term (current) use of aspirin; Z79.4 Long term (current) use of insulin; Z79.899 Other long term (current) drug therapy; Z86.73 Personal history of transient ischemic attack (TIA), and cerebral infarction without residual deficits
CPT/HCPCS: 36415; 71045; 76770; 80048; 80053; 80061; 82553; 82962; 83036; 83735; 83880; 84484; 85025; 85027; 85610; 85730; 93005; 93010; 93306; 94660; 96374; 99285; J1644; J1815; J1940; J2930; J3490; J7120